=== PATIENT | female | born 1940 | race Caucasian/White ===

== ENCOUNTER 2016-06-28 23:22 | Inpatient (IN) | payer MEDICARE, OTHER ==
[2016-06-29 00:42] VITALS: BMI 22.9
--- NOTE | 2016-06-29 00:54 | PDOC ---
History of Present Illness - General History Source: Family <Kelvin Moran - Last Filed: 06/29/16 03:38> - General History Source: Patient Exam Limitations: No Limitations - History of Present Illness Initial Comments: 06/29/16 00:58 Patient is a 75 year old female with a significant past medical history of Parkinson's, depression and GERD who presents to the ED accompanied by family with right wound underneath her right fourth toe for last week and half. Patient was given Clindamycin 300 mg by her PMD she completed the course and is now reports loose stools. As per family, the wound persists, and now the foot is red and inflamed. PCP: Dr. Turner <Sari Kathleen - Last Filed: 06/29/16 05:05> - General Chief Complaint: Wound Infection Stated Complaint: INFECTION Time Seen by Provider: 06/29/16 00:49 Past History - Past Medical History Cardiac Disorders: No CVA: No CHF: No Dementia: Yes (PARKINSONS) Diabetes: No GI Disorders: No Disorders: No HTN: No Hypercholesterolemia: No Liver Disease: No Psychiatric Problems: Yes (DEPRESSION) Seizures: No Thyroid Disease: No - Surgical History Abdominal Surgery: No Appendectomy: No Cardiac Surgery: No Cholecystectomy: No Lung Surgery: No Neurologic Surgery: No Orthopedic Surgery: Yes (bilateral knee surgery) - Psycho/Social/Smoking Cessation Hx Anxiety: No Suicidal Ideation: No Smoking History: Never smoked Have you smoked in the past 12 months: No Hx Alcohol Use: No Drug/Substance Use Hx: No Substance Use Type: None Hx Substance Use Treatment: No <Kelvin Moran - Last Filed: 06/29/16 03:38> <Sari Kathleen - Last Filed: 06/29/16 05:05> - Past Medical History Allergies/Adverse Reactions: Allergies Allergy/AdvReac Type Severity Reaction Status Date / Time No Known Drug Allergies Allergy Verified 01/27/16 13:59 Home Medications: Ambulatory Orders Cholecalciferol (Vitamin D3) [Vitamin D3] 1,000 unit PO DAILY #0 tab.chew Pantoprazole Sodium [Protonix -] 40 mg PO DAILY #0 tablet.ec 12/10/13 Alendronate Sodium [Binosto] 70 mg PO WEEKLY 01/27/16 Beta-Carotene(A) W-C and E/Min [Ocuvite (Nf)] 1 tab PO DAILY 01/27/16 Calcium (Oyster Shell) [Os-Brody 500Mg -] 500 mg PO BID 01/27/16 Carbidopa/Levodopa *Cr* 25/100 [Sinemet *Cr* 25/100 -] 1 combo PO ASDIR Cyclosporine [Restasis] 1 each OU BID 01/27/16 Paroxetine HCl [Paxil] 30 mg PO DAILY 01/27/16 Quetiapine Fumarate "Xr" [Seroquel Xr -] 100 mg PO HS 01/27/16 Quetiapine Fumarate [Seroquel -] 25 mg PO BID 01/27/16 Ropinirole HCl [Requip Xl] 3 mg PO BID 01/27/16 Vitamin B Complex Vit C No.4 [Super B Complex] 150 mg PO DAILY 01/27/16 Vitamin E 400 unit PO DAILY 01/27/16 Review of Systems - Review of Systems Able to Perform ROS?: Yes Comments:: 06/29/16 00:59 CONSTITUTIONAL: Absent: fever, chills, diaphoresis, generalized weakness, malaise, loss of appetite HEENT: Absent: rhinorrhea, nasal congestion, throat pain, throat swelling, difficulty swallowing, mouth swelling, ear pain, eye pain, visual Changes CARDIOVASCULAR: Absent: chest pain, syncope, palpitations, irregular heart rate, lightheadedness , peripheral edema RESPIRATORY: Absent: cough, shortness of breath, dyspnea with exertion, orthopnea, wheezing, stridor, hemoptysis GASTROINTESTINAL: Absent: abdominal pain, abdominal distension, nausea, vomiting, diarrhea, constipation, melena, hematochezia GENITOURINARY: Absent: dysuria, frequency, urgency, hesitancy, hematuria, flank pain, genital pain MUSCULOSKELETAL: Absent: myalgia, arthralgia, joint swelling SKIN: Present: wound on the right foot. Absent: rash, itching, pallor HEMATOLOGIC/IMMUNOLOGIC: Absent: easy bleeding, easy bruising, lymphadenopathy, frequent infections ENDOCRINE: Absent: unexplained weight gain, unexplained weight loss, heat intolerance, cold intolerance NEUROLOGIC: Absent: headache, focal weakness or paresthesias, dizziness, unsteady gait, seizure, mental status changes, bladder or bowel incontinence PSYCHIATRIC: Absent: anxiety, depression, suicidal or homicidal ideation, hallucinations. <Sari Kathleen - Last Filed: 06/29/16 05:05> *Physical Exam - Vital Signs Last Vital Signs Temp Pulse Resp BP Pulse Ox 98.5 F 99 H 18 119/64 98 06/29/16 00:40 06/29/16 00:40 06/29/16 00:40 06/29/16 00:40 06/29/16 00:40 <Kelvin Moran - Last Filed: 06/29/16 03:38> - Vital Signs Last Vital Signs Temp Pulse Resp BP Pulse Ox 98.5 F 99 H 18 119/64 98 06/29/16 00:40 06/29/16 00:40 06/29/16 00:40 06/29/16 00:40 06/29/16 00:40 - Physical Exam Comments: 06/29/16 00:59 GENERAL: Well developed, well nourished. Awake and alert. In no acute distress. HEENT: Normocephalic, atraumatic. PERRLA, EOMI. No conjunctival pallor. Sclerae are non -icteric. Moist mucous membranes. Oropharynx is clear. NECK: Supple. Full ROM. No JVD. Carotid pulses 2+ and symmetric, without bruits. No thyromegaly. No lymphadenopathy. CARDIOVASCULAR: Regular rate and rhythm. No murmurs, rubs, or gallops. Distal pulses are 2+ and symmetric. PULMONARY: No evidence of respiratory distress. Lungs clear to auscultation bilaterally. No wheezing, rales or rhonchi. ABDOMINAL: Soft. Non-tender. Non-distended. No rebound or guarding. No organomegaly. Normoactive bowel sounds. MUSCULOSKELETAL Normal range of motion at all joints. No bony deformities or tenderness. No CVA tenderness. EXTREMITIES: +Tenderness erythema and mild edema of right foot on dorsal aspect, and she has open wound with yellow serous fluid under the 4th digit on the right foot. No cyanosis. No clubbing.No calf tenderness. SKIN: Warm and dry. Normal capillary refill. No rashes. No jaundice. NEUROLOGICAL: Alert, awake, appropriate. Cranial nerves 2-12 intact. No deficits to light touch and temperature in face, upper extremities and lower extremities. No motor deficits in the in face, upper extremities and lower extremities. Normoreflexic in the upper and lower extremities. Normal speech. Toes are downgoing bilaterally. Gait is normal without ataxia. PSYCHIATRIC: Cooperative. Good eye contact. Appropriate mood and affect. <Sari Kathleen - Last Filed: 06/29/16 05:05> Heart Score/ECG Review #1 06/29/16 05:04 ECG Impression: normal sinus rhythm Nonspecific ST abnormality Vent rate 94 bpm <Sari Kathleen - Last Filed: 06/29/16 05:05> ED Treatment Course - LABORATORY CBC & Chemistry Diagram: 06/29/16 01:07 06/29/16 01:07 <Kelvin Moran - Last Filed: 06/29/16 03:38> - LABORATORY CBC & Chemistry Diagram: 06/29/16 01:07 06/29/16 01:07 <Sari Kathleen - Last Filed: 06/29/16 05:05> Medical Decision Making - Medical Decision Making 06/29/16 03:38 Dr. Moran: The scribe's documentation has been prepared under my direction and personally reviewed by me in its entirery. I confirm that the note above accurately reflects all work, treatment, procedures, and medical decision making performed by me. Pt with a right foot wound infection despite po clindamycin that was given as out pt therapy. Will admit to [facility]. <Kelvin Moran - Last Filed: 06/29/16 03:38> *DC/Admit/Observation/Transfer - Discharge Dispostion Admit: Yes <Kelvin Moran - Last Filed: 06/29/16 03:38> - Attestations Scribe Attestion: 06/29/16 01:00 Documentation prepared by CHIDI Bird, acting as medical staffing coordinator for Kelvin Moran DO. <Sari Kathleen - Last Filed: 06/29/16 05:05> Diagnosis at time of Disposition: Right foot infection - Referrals
[2016-06-29 01:20] LABS: BASOPHIL 0.2 % (0-2.0); EOSINOPHIL 0.9 % (0-4.5); MCH 31.4 pg (25.7-33.7); MCHC 35.5 g/dl (32.0-36.0); MEAN CELL VOLUME 88.5 fl (80-96); MEAN PLT VOLUME 7.9 fl (7.5-11.1); NEUTROPHILS 79.5 % (42.8-82.8); PLATELET COUNT 147 K/MM3 (134-434); RDW 16.4 % (11.6-15.6); WHITE BLOOD COUNT 9.9 K/mm3 (4.0-10.0)
[2016-06-29 01:33] LABS: INR 1.24 (0.82-1.09); PROTHROMBIN TIME (PATIENT) 13.7 SEC (9.98-11.88)
[2016-06-29 01:40] LABS: ALBUMIN 3.5 g/dl (3.4-5.0); ANION GAP 9 (8-16); CALCIUM 8.3 mg/dL (8.5-10.1); CO2 28 mmol/L (21-32); CREATININE 0.5 mg/dL (0.55-1.02); GLUCOSE,RANDOM 109 mg/dL (74-106); MAGNESIUM 2.1 mg/dL (1.8-2.4); SGOT/AST 14 U/L (15-37); SGPT/ALT 6 U/L (12-78); TOT PROT 6.3 g/dl (6.4-8.2)
[2016-06-29 01:41] LABS: ALK PHOS 59 U/L (45-117)
[2016-06-29] MEDS ORDERED: POTASSIUM CHLORIDE TABS 20 MEQ TABLET.ER (FP) PO ONE ×2 (02:25→02:32)
[2016-06-29] MEDS ORDERED: LEVOFLOXACIN 500 MG IVPB 100 ML IVPB ONE ×2 (02:25→02:31)
--- NOTE | 2016-06-29 04:12 | HP ---
CHIEF COMPLAINT: Right foot pain PCP: Jairo HISTORY OF PRESENT ILLNESS: Patient is a 75 year old female with PMH of Parkinsons disease, depression & GERD who presents to ED with her 2 sons for right foot pain. Mother is a poor historian due to clinical condition, so majority of history is taken from son. Son states that mother complained for right foot pain a month ago and was sent to her PCP. A small ulcer was noted between her 4th and 5th right toes on the plantar aspect of her right foot. Patient was sent home on PO Clindamycin and instructed to f/u with wound care. Patient visited our wound care center on 2016 and wound was dressed with calcium alginate (silver). She was instructed to return to clinic in 1 week. Patient's pain has increased in last 2-3 days and the ulcer is now surrounded by erythema, with increased warmth and swelling of the kristin. Patient also complains of multiple daily loose stools for last 2-3 days as well. Denies fever, SOB, chest pain, abdominal pain, CLAROS, visual changes. 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) Social History: Smoking:NONE REPORTED Alcohol:NONE REPORTED Drugs: NONE REPORTED Family History: NONCONTRIBUTORY Allergies No Known Drug Allergies Allergy (Verified 01/27/16 13:59) HOME MEDICATIONS: Home Medications Medication Instructions Recorded Cholecalciferol (Vitamin D3) 1,000 unit PO DAILY #0 tab.chew 12/10/13 [Vitamin D3] Pantoprazole Sodium [Protonix -] 40 mg PO DAILY #0 tablet.ec 12/10/13 Alendronate Sodium [Binosto] 70 mg PO WEEKLY 01/27/16 Beta-Carotene(A) W-C and E/Min 1 tab PO DAILY 01/27/16 [Ocuvite (Nf)] Calcium (Oyster Shell) [Os-Brody 500 mg PO BID 01/27/16 500Mg -] Carbidopa/Levodopa *Cr* 25/100 1 combo PO ASDIR 01/27/16 [Sinemet *Cr* 25/100 -] Cyclosporine [Restasis] 1 each OU BID 01/27/16 Paroxetine HCl [Paxil] 30 mg PO DAILY 01/27/16 Quetiapine Fumarate "Xr" [Seroquel 100 mg PO HS 01/27/16 Xr -] Quetiapine Fumarate [Seroquel -] 25 mg PO BID 01/27/16 Ropinirole HCl [Requip Xl] 3 mg PO BID 01/27/16 Vitamin B Complex Vit C No.4 150 mg PO DAILY 01/27/16 [Super B Complex] Vitamin E 400 unit PO DAILY 01/27/16 REVIEW OF SYSTEMS CONSTITUTIONAL: Absent: fever, chills, diaphoresis, generalized weakness, malaise, loss of appetite, weight change HEENT: Absent: rhinorrhea, nasal congestion, throat pain, throat swelling, difficulty swallowing, mouth swelling, ear pain, eye pain, visual changes CARDIOVASCULAR: Absent: chest pain, syncope, palpitations, irregular heart rate, lightheadedness , peripheral edema RESPIRATORY: Absent: cough, shortness of breath, dyspnea with exertion, orthopnea, wheezing, stridor, hemoptysis GASTROINTESTINAL: (+)diarrhea, Absent: abdominal pain, abdominal distension, nausea, vomiting, constipation, melena, hematochezia GENITOURINARY: Absent: dysuria, frequency, urgency, hesitancy, hematuria, flank pain, genital pain MUSCULOSKELETAL: Absent: myalgia, arthralgia, joint swelling, back pain, neck pain SKIN: (+)right foot erythematous & tender surround plantar aspect near 4th toe HEMATOLOGIC/IMMUNOLOGIC: Absent: easy bleeding, easy bruising, lymphadenopathy, frequent infections ENDOCRINE: Absent: unexplained weight gain, unexplained weight loss, heat intolerance, cold intolerance NEUROLOGIC: Absent: headache, focal weakness or paresthesias, dizziness, unsteady gait, seizure, mental status changes, bladder or bowel incontinence PSYCHIATRIC: Absent: anxiety, depression, suicidal or homicidal ideation, hallucinations. PHYSICAL EXAMINATION Vital Signs - 24 hr 06/29/16 00:40 Temperature 98.5 F Pulse Rate 99 H Respiratory 18 Rate Blood Pressure 119/64 O2 Sat by Pulse 98 Oximetry (%) GENERAL: Awake, alert, and fully oriented, in no acute distress. HEENT: Atraumatic, EOMI, PERRLA, No lymphadenopathy noted, moist membranes LUNGS: Breath sounds equal, clear to auscultation bilaterally. No wheezes, and no crackles. No accessory muscle use. HEART: Regular rate and rhythm, normal S1 and S2 without murmur, rub or gallop. ABDOMEN: Soft, nontender, not distended, normoactive bowel sounds, no guarding, no rebound, no masses. No hepatomegaly or splenomegaly. MUSCULOSKELETAL: Normal range of motion at all joints. No bony deformities or tenderness. No CVA tenderness. UPPER EXTREMITIES: 2+ pulses, warm, well-perfused. No cyanosis. No clubbing. No peripheral edema. LOWER EXTREMITIES: 2+ pulses, warm, well-perfused. No calf tenderness. No peripheral edema. NEUROLOGICAL: Cranial nerves II-XII intact. Normal speech. Normal gait. PSYCHIATRIC: Cooperative. Good eye contact. Appropriate mood and affect. SKIN: Ulcer in between 4th & 5th toe on right foot with yellow-clear serous drainage; area surrounding ulcer is especially erythematous, warm & tender ( most notably on plantar aspect of foot) Laboratory Results - last 24 hr 06/29/16 06/29/16 06/29/16 01:07 01:07 01:07 WBC 9.9 D RBC 3.66 Hgb 11.5 Hct 32.4 MCV 88.5 MCHC 35.5 RDW 16.4 H D Plt Count 147 MPV 7.9 Neutrophils % 79.5 Lymphocytes % 12.4 D Monocytes % 7.0 Eosinophils % 0.9 Basophils % 0.2 INR 1.24 H Sodium 142 Potassium 3.1 L Chloride 105 Carbon Dioxide 28 Anion Gap 9 BUN 19 H Creatinine 0.5 L D Creat Clearance w eGFR > 60 Random Glucose 109 H Lactic Acid Calcium 8.3 L Magnesium 2.1 Total Bilirubin 1.0 D AST 14 L D ALT 6 L D Alkaline Phosphatase 59 Total Protein 6.3 L Albumin 3.5 06/29/16 01:09 WBC RBC Hgb Hct MCV MCHC RDW Plt Count MPV Neutrophils % Lymphocytes % Monocytes % Eosinophils % Basophils % INR Sodium Potassium Chloride Carbon Dioxide Anion Gap BUN Creatinine Creat Clearance w eGFR Random Glucose Lactic Acid 0.788 Calcium Magnesium Total Bilirubin AST ALT Alkaline Phosphatase Total Protein Albumin ASSESSMENT/PLAN: 75 year old female with PMH of Parkinsons disease, depression & GERD who presents to ED with right foot ulcer & cellulitis. #Right foot Ulcer w/ superimposed acute cellulitis -Penny Victoria started -Wound care consulted -ID consulted -IVF NS @50 cc/hr -Tylenol pain management -blood cultures pending -wound culture pending -right foot XRAY ordered #Diarrhea -need to r/o C. Diff due to clindamycin use -stool cultures, ova/parasites, c. diff sent #Parkinsons disease -need to confirm home meds with pharmacy & restart her home meds in morning #Hypokalemia -given 40mEq K-Dur in ED -continue to trend Prophylaxis/FEN -Heparin started -Protonix -Regular diet, Potassium given in ED (Will monitor), IVF NS@50cc/hr Visit type - Emergency Visit Emergency Visit: Yes ED Registration Date: 06/29/16 Care time: The patient presented to the Emergency Department on the above date and was hospitalized for further evaluation of their emergent condition. - New Patient This patient is new to me today: Yes Date on this admission: 06/29/16 - Critical Care Critical Care patient: No
[2016-06-29] MEDS ORDERED: SODIUM CHLORIDE 1,000 ML IV SCH (05:30)
[2016-06-29] MEDS ORDERED: VANCOMYCIN 1 GRAM (PRE-DOCKED) 1,000 MG/250 ML BAG IVPB ONE (05:45)
[2016-06-29] MEDS ORDERED: PIPERACILLIN/TAZOB 3.375 GM/50 ML PRE-DOCKED IVPB ONE (05:45)
--- NOTE | 2016-06-29 05:52 | PN ---
Teaching Attending Note Name of Resident: Alexandre Osman ATTENDING PHYSICIAN STATEMENT I saw and evaluated the patient. I reviewed the resident's note and discussed the case with the resident. I agree with the resident's findings and plan as documented. SUBJECTIVE: 75 year old female that was brought for evaluation of RLE redness and persistent wound despite treatment with oral antibiotics. She was seen and evaluated by her rehabilitation specialist approximately 2 weeks ago due to wound in right 4th intertrigial space, was prescribed clindamycin orally . She completed the course however has worsening erythema and pain of the right foot . She reports recent history of diarrhea. PMH Parkinsons HTN ALL none Current Medications Acetaminophen (Tylenol -) 650 mg PO Q4H PRN PRN Reason: FEVER OR PAIN Heparin Sodium (Porcine) (Heparin -) 5,000 unit SQ Q8H-IV KOREY Sodium Chloride (Normal Saline -) 1,000 mls @ 50 mls/hr IV ASDIR KOREY Stop: 06/30/16 01:29 Pantoprazole Sodium (Protonix -) 40 mg PO DAILY KOREY Piperacillin Sod/Tazobactam Sod (Zosyn 3.375gm Ivpb (Pre-Docked)) 3.375 gm IVPB Q8H-IV KOREY PRN Reason: Protocol Vancomycin HCl (Vancomycin (Pre-Docked)) 1,000 mg IVPB DAILY KOREY PRN Reason: Protocol OBJECTIVE: Vital Signs Temperature 98.5 F 06/29/16 00:40 Pulse Rate 99 H 06/29/16 00:40 Respiratory Rate 18 06/29/16 00:40 Blood Pressure 119/64 06/29/16 00:40 O2 Sat by Pulse Oximetry (%) 98 06/29/16 00:40 HEENT PERRLA , atraumatic , OP clear CVS S1 S2 + , No MRG RRR RS CTA B/L ABD soft NT EXT 2nd right toe amputation , 4th intertrigial space wound , erythema of the dorsum of the foot, severe tenderness on palpation. Laboratory 06/29/16 06/29/16 06/29/16 01:07 01:07 01:07 WBC 9.9 K/mm3 D K/mm3 (4.0-10.0) RBC 3.66 M/mm3 M/mm3 (3.60-5.2) Hgb 11.5 GM/dL GM/dL (10.7-15.3) Hct 32.4 % % (32.4-45.2) MCV 88.5 fl fl (80-96) MCHC 35.5 g/dl g/dl (32.0-36.0) RDW 16.4 % H D % (11.6-15.6) Plt Count 147 K/MM3 K/MM3 (134-434) MPV 7.9 fl fl (7.5-11.1) Neutrophils % 79.5 % % (42.8-82.8) Lymphocytes % 12.4 % D % (8-40) Monocytes % 7.0 % % (3.8-10.2) Eosinophils % 0.9 % % (0-4.5) Basophils % 0.2 % % (0-2.0) INR 1.24 H (0.82-1.09) Sodium 142 mmol/L mmol/L (136-145) Potassium 3.1 mmol/L L mmol/L (3.5-5.1) Chloride 105 mmol/L mmol/L (98-107) Carbon Dioxide 28 mmol/L mmol/L (21-32) Anion Gap 9 (8-16) BUN 19 mg/dL H mg/dL (7-18) Creatinine 0.5 mg/dL L D mg/dL (0.55-1.02) Creat Clearance w eGFR > 60 (>60) Random Glucose 109 mg/dL H mg/dL (74-106) Lactic Acid Calcium 8.3 mg/dL L mg/dL (8.5-10.1) Magnesium 2.1 mg/dL mg/dL (1.8-2.4) Total Bilirubin 1.0 mg/dL D mg/dL (0.2-1.0) AST 14 U/L L D U/L (15-37) ALT 6 U/L L D U/L (12-78) Alkaline Phosphatase 59 U/L U/L (45-117) Total Protein 6.3 g/dl L g/dl (6.4-8.2) Albumin 3.5 g/dl g/dl (3.4-5.0) 06/29/16 01:09 WBC RBC Hgb Hct MCV MCHC RDW Plt Count MPV Neutrophils % Lymphocytes % Monocytes % Eosinophils % Basophils % INR Sodium Potassium Chloride Carbon Dioxide Anion Gap BUN Creatinine Creat Clearance w eGFR Random Glucose Lactic Acid 0.788 mmol/L mmol/L (0.4-2.0) Calcium Magnesium Total Bilirubin AST ALT Alkaline Phosphatase Total Protein Albumin ASSESSMENT AND PLAN: 75 year old female with Right foot cellulitis refractory to treatment with outpatient wound care and oral antibiotics. Laboratory workup is abnormal for hypokalemia . - IVF - IV Zosyn and stat Vanco - Vascular surgery/wound care evaluation - supplement K - ID evaluation - XR of the foot is pending - c/w the rest of the home meds - DVT pph with heparin SC Admit as an inpatient , due to failure of oral antibiotics ,expected length of treatment with IV antibiotics is greater then 2 days .
[2016-06-29 08:44] LABS: MCH 31.4 pg (25.7-33.7); MCHC 35.4 g/dl (32.0-36.0); MEAN CELL VOLUME 88.6 fl (80-96); MEAN PLT VOLUME 7.9 fl (7.5-11.1); PLATELET COUNT 148 K/MM3 (134-434); RDW 16.5 % (11.6-15.6); WHITE BLOOD COUNT 7.9 K/mm3 (4.0-10.0)
[2016-06-29 09:00] LABS: ALBUMIN 3.3 g/dl (3.4-5.0); ANION GAP 10 (8-16); CO2 26 mmol/L (21-32); GLUCOSE,RANDOM 133 mg/dL (74-106); MAGNESIUM 2.2 mg/dL (1.8-2.4)
[2016-06-29 09:04] LABS: ALK PHOS 53 U/L (45-117); BILIRUBIN,TOTAL 1.1 mg/dL (0.2-1.0); CREATININE 0.5 mg/dL (0.55-1.02); PHOSPHOROUS 2.8 mg/dL (2.5-4.9); SGOT/AST 14 U/L (15-37); SGPT/ALT 20 U/L (12-78); TOT PROT 6.2 g/dl (6.4-8.2)
[2016-06-29] MEDS ORDERED: AMPICILLIN NA/SULBACTAM NA 1.5 GM in SODIUM CHLORIDE 100 ML IVPB STA (09:45)
[2016-06-29 09:46] LABS: URINE APPEARANCE CLEAR; URINE BILIRUBIN NEGATIVE (NEGATIVE); URINE BLOOD NEGATIVE (NEGATIVE); URINE COLOR STRAW; URINE GLUCOSE (UA) NEGATIVE (NEGATIVE); URINE KETONE NEGATIVE (NEGATIVE); URINE NITRITE NEGATIVE (NEGATIVE); URINE PROTEIN NEGATIVE (NEGATIVE); URINE UROBILINOGEN NEGATIVE E.U./dl (0.2-1.0)
[2016-06-29 09:56] LABS: URINE LEUK ESTERASE 2+ (NEGATIVE)
[2016-06-29 09:59] LABS: URINE MUCUS RARE; URINE RBC 2 /hpf (0-3); URINE WBC 56 /hpf (3-5)
[2016-06-29] MEDS ORDERED: VANCOMYCIN 1 GRAM (PRE-DOCKED) 1,000 MG/250 ML BAG IVPB SCH (10:00)
[2016-06-29] MEDS ORDERED: PIPERACILLIN/TAZOB 3.375 GM/50 ML PRE-DOCKED IVPB SCH (10:00)
[2016-06-29] MEDS: PANTOPRAZOLE 40 MG TABLET (FP) PO SCH (10:42)
[2016-06-29] MEDS: HEPARIN NA (PORCINE) 5,000 UNITS/ML 1ML VIAL SQ SCH ×2 (10:43→17:21)
[2016-06-29] MEDS ORDERED: CARBIDOPA/LEVODOPA 25/100 TABLET (FP) ONE (10:45)
--- NOTE | 2016-06-29 13:22 | EKG ---
Test Reason : Blood Pressure : / mmHG Vent. Rate : 094 BPM Atrial Rate : 094 BPM P-R Int : 164 ms QRS Dur : 076 ms QT Int : 352 ms P-R-T Axes : 036 027 057 degrees QTc Int : 440 ms NORMAL SINUS RHYTHM NONSPECIFIC ST ABNORMALITY ABNORMAL ECG WHEN COMPARED WITH ECG OF 27-JAN-2016 15:43, NO SIGNIFICANT CHANGE WAS FOUND BASELINE ARTIFACT Confirmed by ELIE HOLLINS, SANDRA ([id number]) on 06/29/2016 1:22:04 PM Referred By: Confirmed By:SANDRA DELGADILLO MD
[2016-06-29] MEDS ORDERED: PARoxetine HCL 10 MG TABLET (FP) ONE (14:35)
[2016-06-29] MEDS: PARoxetine HCL 30 MG TABLET PO SCH (14:54)
--- NOTE | 2016-06-29 14:55 | PN ---
Teaching Attending Note Name of Resident: Charleen Pena ATTENDING PHYSICIAN STATEMENT I saw and evaluated the patient. I reviewed the resident's note and discussed the case with the resident. I agree with the resident's findings and plan as documented. SUBJECTIVE: reports pain in R foot . has no fever or chills. no CP or SOB . recently finished a course of clindamycin and developed diarrhea. had a watery BM this am . OBJECTIVE: NAD , awake , alert , not oriented. CV: RRR. Lungs were not examined as she was on bed bojorquez . Abd :soft, ND, TTP in LLQ , with no rebound tnderness or guarding . Ext : R foot with erythema , and edema on dorsum and anterior part of sole . TTP . deformed toes. ulcer with purulent drainage between 3rd and 4th toes. no extra drainage was expressed when squeezed , no fluctuance no erythema or edema over Legs . DP 2+ b/l . ASSESSMENT AND PLAN: 75 y/o lady with h/o GERD, dementia , PArkinson's , who presented with draining ulcer on R foot 1- Infected ulcer with associated cellulitis : no gas formation on xray . no fever or leukocytosis - Abx treatment - wound care consult by Dr. Balladr - might need podiatry - cx sent , will follow 2- Diarrhea: could be due to Abx she recently received . but C diff needs to be r/o - follow stool studies . if positive for c diff , will treat - monitor abd exam . minimal tenderness in LLQ - IVF 3- h/o Parkinson's : will confirm meds but in mean time will start her on sinemet dose as per son list 4- H/O depression : resume SSRI 5- DVT px
[2016-06-29] MEDS ORDERED: AMPICILLIN NA/SULBACTAM NA 1.5 GM in SODIUM CHLORIDE 100 ML IVPB SCH (15:00)
--- NOTE | 2016-06-29 15:21 | PN ---
Physical Exam: SUBJECTIVE: Patient seen and examined Patient resting in bed NAD. Afebrile and hemodynamically stable. No acute events. Complains of pain in her R foot. Denies f/c, chest pain, sob, diaphoresis, palpitations, dizziness, abd pain, dysuria. Reports having diarrhea. OBJECTIVE: GENERAL: Awake, alert, and fully oriented, in no acute distress. HEENT: EOMI, PERRLA, moist membranes LUNGS: Breath sounds equal, clear to auscultation bilaterally. HEART: Regular rate and rhythm, normal S1 and S2 ABDOMEN: Soft, nontender, not distended, normoactive bowel sounds MUSCULOSKELETAL: No CVA tenderness. UPPER EXTREMITIES: 2+ pulses, warm, well-perfused. No cyanosis. No clubbing. No peripheral edema. LOWER EXTREMITIES: 2+ pulses, warm, well-perfused. No calf tenderness. No peripheral edema. R foor erythematous, purulence between 3rd adn 4th toes. possibly fluctuant area ventrally. NEUROLOGICAL: Cranial nerves II-XII grossly intact. Normal speech. rigid extremities PSYCHIATRIC: Cooperative. Good eye contact. Appropriate mood and affect. Vital Signs Period Temp Pulse Resp BP Sys/Mcginnis Pulse Ox Last 24 Hr 99.3 F-99.4 F 91-109 - 118-131/56-61 Laboratory Results - last 24 hr 06/29/16 06/29/16 06/29/16 08:00 08:00 09:30 WBC 7.9 RBC 3.69 Hgb 11.6 Hct 32.7 MCV 88.6 MCHC 35.4 RDW 16.5 H Plt Count 148 MPV 7.9 Sodium 145 Potassium 3.6 Chloride 109 H Carbon Dioxide 26 Anion Gap 10 BUN 12 D Creatinine 0.5 L Creat Clearance w eGFR > 60 Random Glucose 133 H D Calcium 8.0 L Phosphorus 2.8 Magnesium 2.2 Total Bilirubin 1.1 H AST 14 L ALT 20 D Alkaline Phosphatase 53 Total Protein 6.2 L Albumin 3.3 L Urine Color Straw Urine Appearance Clear Urine pH 5.0 Ur Specific [place] 1.010 Urine Protein Negative Urine Glucose (UA) Negative Urine Ketones Negative Urine Blood Negative Urine Nitrite Negative Urine Bilirubin Negative Urine Urobilinogen Negative Ur Leukocyte Esterase 2+ H Urine RBC 2 Urine WBC 56 Ur Epithelial Cells Rare Urine Mucus Rare Active Medications Generic Name Dose Route Start Last Admin Trade Name Freq PRN Reason Stop Dose Admin Acetaminophen 650 mg 06/29/16 05:28 Tylenol - PO Q4H PRN FEVER OR PAIN Carbidopa/Levodopa 1 combo 06/29/16 14:00 06/29/16 14:54 Sinemet *Cr* 25/100 - PO 1 combo 5XD [facility] Administration Heparin Sodium (Porcine) 5,000 unit 06/29/16 10:00 06/29/16 10:43 Heparin - SQ 5,000 unit Q8H-IV K[facility]Y Administration Sodium Chloride 1,000 mls @ 50 mls/hr 06/29/16 05:30 06/29/16 05:53 Normal Saline - IV 06/30/16 01:29 50 mls/hr ASDIR KOREY Administration Influenza Virus Vaccine 45 mcg 06/29/16 14:27 Fluvirin IM 06/29/16 14:28 .ONCE ONE Ketoconazole 1 applic 06/29/16 13:00 Nizoral 2% Cream - TP DAILY K[facility]Y Pantoprazole Sodium 40 mg 06/29/16 10:00 06/29/16 10:42 Protonix - PO 40 mg DAILY K[facility] Administration Paroxetine HCl 30 mg 06/29/16 13:00 06/29/16 14:54 Paxil - PO 30 mg DAILY [facility] Administration Piperacillin Sod/Tazobactam Sod 3.375 gm 06/29/16 18:00 Zosyn 3.375gm Ivpb (Pre-Docked) IVPB Q8H-IV K[facility] Pneumococcal 13-Valent Conj Vacc 0.5 ml 06/29/16 14:27 Prevnar 13 Syringe - IM 06/29/16 14:28 .ONCE ONE Quetiapine Fumarate 50 mg 06/29/16 22:00 Seroquel Xr - PO HS K[facility]Y Silver Sulfadiazine 1 applic 06/29/16 13:30 Silvadene - TP BID K[facility]Y ASSESSMENT/PLAN: This is a 75 year old female with PMH of Parkinsons disease, depression & GERD who presents to ED with right foot ulcer & cellulitis, failed PO abx. Right foot Ulcer with superimposed acute cellulitis and possible abscess -between 3rd and 4th metatarsals -Vanc, Zosyn, levaquin in ed -will switch to unasyn, vanc. -Wound care consulted, will likely need I and D -ID consulted -IVF NS @50 -Tylenol pain management -blood cultures pending -wound culture pending -right foot XRAY no apparent osteo Diarrhea -likely side effect of recent clindamycin -r/o C. Diff, sent toxin, stool cultures, ova/parasites Parkinsons disease -carbidopa/levodopa Depression -seroquel -paxil FEN -NS@50 -repleted K -Hep, PPI -Regular diet Dispo: admit to med [facility] Visit type - Emergency Visit Emergency Visit: Yes ED Registration Date: 06/29/16 Care time: The patient presented to the Emergency Department on the above date and was hospitalized for further evaluation of their emergent condition. - New Patient This patient is new to me today: Yes Date on this admission: 06/29/16 - Critical Care Critical Care patient: No - Discharge Referral Referred to [facility] Med [facility] No
--- NOTE | 2016-06-29 15:41 | MSN ---
Progress Note (short form) - Note Progress Note: 75 yo female here for rt toe and foot cellulitis. PMH of Parkinson's disease, depression, & GERD presents to ER w/ her 2 sons for rt foot pain. Son states that ulcer has been present for 1 month; pt seen by PCP about 1 week ago and started on clidamycin; however it seems like ulcer and foot pain worsened. Reports that ulcer is located between 3 & 4th toes and is painful when she walks ; foot also reported as swollen and red. Also reports diarrhea X 3 days; no blood reported. Denies nausea, fevers, diarrhea. PSHx sig for Rt second toe amputation due to deformity. Allergies Allergy/AdvReac Type Severity Reaction Status Date / Time No Known Drug Allergies Allergy Verified 06/29/16 06:11 Last Vital Signs Temp Pulse Resp BP Pulse Ox 99.3 F 109 H 17 131/61 98 06/29/16 13:55 06/29/16 13:55 06/29/16 14:15 06/29/16 13:55 06/29/16 00:40 Laboratory Results - last 24 hr 06/29/16 06/29/16 06/29/16 01:07 01:07 01:07 WBC 9.9 D RBC 3.66 Hgb 11.5 Hct 32.4 MCV 88.5 MCHC 35.5 RDW 16.4 H D Plt Count 147 MPV 7.9 Neutrophils % 79.5 Lymphocytes % 12.4 D Monocytes % 7.0 Eosinophils % 0.9 Basophils % 0.2 INR 1.24 H Sodium 142 Potassium 3.1 L Chloride 105 Carbon Dioxide 28 Anion Gap 9 BUN 19 H Creatinine 0.5 L D Creat Clearance w eGFR > 60 Random Glucose 109 H Lactic Acid Calcium 8.3 L Phosphorus Magnesium 2.1 Total Bilirubin 1.0 D AST 14 L D ALT 6 L D Alkaline Phosphatase 59 Total Protein 6.3 L Albumin 3.5 Urine Color Urine Appearance Urine pH Ur Specific [place] Urine Protein Urine Glucose (UA) Urine Ketones Urine Blood Urine Nitrite Urine Bilirubin Urine Urobilinogen Ur Leukocyte Esterase Urine RBC Urine WBC Ur Epithelial Cells Urine Mucus 06/29/16 06/29/16 06/29/16 01:09 08:00 08:00 WBC 7.9 RBC 3.69 Hgb 11.6 Hct 32.7 MCV 88.6 MCHC 35.4 RDW 16.5 H Plt Count 148 MPV 7.9 Neutrophils % Lymphocytes % Monocytes % Eosinophils % Basophils % INR Sodium 145 Potassium 3.6 Chloride 109 H Carbon Dioxide 26 Anion Gap 10 BUN 12 D Creatinine 0.5 L Creat Clearance w eGFR > 60 Random Glucose 133 H D Lactic Acid 0.788 Calcium 8.0 L Phosphorus 2.8 Magnesium 2.2 Total Bilirubin 1.1 H AST 14 L ALT 20 D Alkaline Phosphatase 53 Total Protein 6.2 L Albumin 3.3 L Urine Color Urine Appearance Urine pH Ur Specific [place] Urine Protein Urine Glucose (UA) Urine Ketones Urine Blood Urine Nitrite Urine Bilirubin Urine Urobilinogen Ur Leukocyte Esterase Urine RBC Urine WBC Ur Epithelial Cells Urine Mucus 06/29/16 09:30 WBC RBC Hgb Hct MCV MCHC RDW Plt Count MPV Neutrophils % Lymphocytes % Monocytes % Eosinophils % Basophils % INR Sodium Potassium Chloride Carbon Dioxide Anion Gap BUN Creatinine Creat Clearance w eGFR Random Glucose Lactic Acid Calcium Phosphorus Magnesium Total Bilirubin AST ALT Alkaline Phosphatase Total Protein Albumin Urine Color Straw Urine Appearance Clear Urine pH 5.0 Ur Specific [place] 1.010 Urine Protein Negative Urine Glucose (UA) Negative Urine Ketones Negative Urine Blood Negative Urine Nitrite Negative Urine Bilirubin Negative Urine Urobilinogen Negative Ur Leukocyte Esterase 2+ H Urine RBC 2 Urine WBC 56 Ur Epithelial Cells Rare Urine Mucus Rare Home Medications Medication Instructions Recorded Cholecalciferol (Vitamin D3) 1,000 unit PO DAILY #0 tab.chew 12/10/13 [Vitamin D3] Carbidopa/Levodopa *Cr* 25/100 1 combo PO QID 01/27/16 [Sinemet *Cr* 25/100 -] Cyclosporine [Restasis] 1 each OU BID 01/27/16 Paroxetine HCl [Paxil] 30 mg PO DAILY 01/27/16 Vitamin B Complex Vit C No.4 150 mg PO DAILY 01/27/16 [Super B Complex] Vitamin E 400 unit PO DAILY 01/27/16 Quetiapine Fumarate [Quetiapine 25 mg PO HS 06/29/16 Fumarate ER] Current Medications Generic Name Dose Route Start Last Admin Trade Name Freq PRN Reason Stop Dose Admin Acetaminophen 650 mg 06/29/16 05:28 Tylenol - PO Q4H PRN FEVER OR PAIN Carbidopa/Levodopa 1 combo 06/29/16 14:00 06/29/16 14:54 Sinemet *Cr* 25/100 - PO 1 combo 5XD [facility] Administration Heparin Sodium (Porcine) 5,000 unit 06/29/16 10:00 06/29/16 10:43 Heparin - SQ 5,000 unit Q8H-IV [facility] Administration Sodium Chloride 1,000 mls @ 50 mls/hr 06/29/16 05:30 06/29/16 05:53 Normal Saline - IV 06/30/16 01:29 50 mls/hr ASDIR K[facility]Y Administration Influenza Virus Vaccine 45 mcg 06/29/16 14:27 Fluvirin IM 06/29/16 14:28 .ONCE ONE Ketoconazole 1 applic 06/29/16 13:00 Nizoral 2% Cream - TP DAILY [facility] Pantoprazole Sodium 40 mg 06/29/16 10:00 06/29/16 10:42 Protonix - PO 40 mg DAILY [facility]Y Administration Paroxetine HCl 30 mg 06/29/16 13:00 06/29/16 14:54 Paxil - PO 30 mg DAILY [facility] Administration Piperacillin Sod/Tazobactam Sod 3.375 gm 06/29/16 18:00 Zosyn 3.375gm Ivpb (Pre-Docked) IVPB Q8H-IV COUNT INCLUDES [facility] Pneumococcal 13-Valent Conj Vacc 0.5 ml 06/29/16 14:27 Prevnar 13 Syringe - IM 06/29/16 14:28 .ONCE ONE Quetiapine Fumarate 50 mg 06/29/16 22:00 Seroquel Xr - PO HS KOREY Silver Sulfadiazine 1 applic 06/29/16 13:30 Silvadene - TP BID K[place]Y General: alert and oriented to person and place; communicates in urdu Head: Normocephalic Neck: supple, no JVD, no carotid bruits Heart: NOrmal S1 & S2 Lungs: CTA Abdomen: slight TTP LLQ; hyperactive bowel sounds MSK: LT Foot hammer toe deformity involving all toes RT Foot hammer toe deformity invovling all toes; 2nd toe amputation; TTP dorsal Rt foot; no TTP plantar surface; dorsal cellulitis, warm to touch, area of fluctuance between 3rd and 4th toes. Not currently draining. Assessment: Right foot Ulcer w/ superimposed acute cellulitis -Vanc, Zosyn started -Wound care consulted -ID consulted -Tylenol pain management -blood cultures pending -wound culture pending #Diarrhea -need to r/o C. Diff due to clindamycin use -stool cultures, ova/parasites, c. diff sent #Parkinsons disease started home medications #Hypokalemia -given 40mEq K-Dur in ED -continue to trend Prophylaxis/FEN -Heparin started -Protonix -Regular diet, Potassium given in ED (Will monitor), IVF NS@50cc/hr
[2016-06-29] MEDS ORDERED: INFLUENZA VACCINE 45 MCG/0.5 ML (MDV 16-17) IM ONE (16:30)
[2016-06-29] MEDS ORDERED: PNEUMOC 13-VAL CONJ-DIP CRM/PF 0.5 ML DISP.SYRIN IM ONE (16:30)
[2016-06-29] MEDS: SILVER SULFADIAZINE 1% TOP CREAM 400 GM JAR TP SCH ×2 (16:52→22:35)
[2016-06-29] MEDS: KETOCONAZOLE 2% CREAM - 60GM TUBE TP SCH (16:53)
[2016-06-29] MEDS: PIPERACILLIN/TAZOB 3.375 GM/50 ML PRE-DOCKED IVPB SCH (17:21)
--- NOTE | 2016-06-29 17:48 | CONSULT ---
Consult Consult Specialty:: infectious diseases Reason for Consultation:: cellulitis of the foot - History of Present Illness Chief Complaint: pain and swelling at the foot sit with ulcer History of Present Illness: 75 year old female with PMH of Parkinsons disease, depression & GERD who is admitted for right foot pain. HGistory obtained from the charts and also from the family ,her son present with her According to the son mother started complaining of right foot pain one month went to her PCP. 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 - Alcohol/Substance Use Hx Alcohol Use: No - Smoking History Smoking history: Never smoked Have you smoked in the past 12 months: No Home Medications - Allergies Allergies/Adverse Reactions: Allergies Allergy/AdvReac Type Severity Reaction Status Date / Time No Known Drug Allergies Allergy Verified 06/29/16 06:11 - Home Medications Home Medications: Ambulatory Orders Cholecalciferol (Vitamin D3) [Vitamin D3] 1,000 unit PO DAILY #0 tab.chew Carbidopa/Levodopa *Cr* 25/100 [Sinemet *Cr* 25/100 -] 1 combo PO QID 01/27/16 Cyclosporine [Restasis] 1 each OU BID 01/27/16 Paroxetine HCl [Paxil] 30 mg PO DAILY 01/27/16 Vitamin B Complex Vit C No.4 [Super B Complex] 150 mg PO DAILY 01/27/16 Vitamin E 400 unit PO DAILY 01/27/16 Quetiapine Fumarate [Quetiapine Fumarate ER] 25 mg PO HS 06/29/16 Review of Systems - Review of Systems Constitutional: reports: No Symptoms Eyes: reports: No Symptoms HENT: reports: No Symptoms Neck: reports: No Symptoms Cardiovascular: reports: No Symptoms Respiratory: reports: No Symptoms Gastrointestinal: reports: No Symptoms Genitourinary: reports: No Symptoms Musculoskeletal: reports: Joint Pain, Joint Swelling, Other Integumentary: reports: Erythema, Lesions, Other Neurological: reports: No Symptoms Endocrine: reports: No Symptoms Hematology/Lymphatic: reports: No Symptoms Psychiatric: reports: No Symptoms Physical Exam Vital Signs: Vital Signs Temperature 99.3 F 06/29/16 13:55 Pulse Rate 109 H 06/29/16 13:55 Respiratory Rate 17 06/29/16 14:15 Blood Pressure 131/61 06/29/16 13:55 O2 Sat by Pulse Oximetry (%) 98 06/29/16 00:40 Constitutional: Yes: Calm, Mild Distress, Thin Eyes: Yes: Conjunctiva Clear HENT: Yes: Atraumatic Neck: Yes: Supple Cardiovascular: Yes: Regular Rate and Rhythm Respiratory: Yes: Regular, CTA Bilaterally Gastrointestinal: Yes: Normal Bowel Sounds, Soft Musculoskeletal: Yes: Muscle Pain, Other Extremities: Yes: Amputation (2nd toe on the right) Integumentary: Yes: Other (Ulcer in between 4th & 5th toe on right foot with yellow-clear serous drainage; area surrounding ulcer is especially erythematous , warm & tender erythema extending on the plantar aspect of the wound) Wound/Incision: Yes: Clean/Dry, Open to air Neurological: Yes: Alert, Oriented Psychiatric: Yes: Alert, Oriented Labs: CBC, BMP 06/29/16 08:00 06/29/16 08:00 Imaging - Results Chest X-ray: Report Reviewed, Image Reviewed X-ray: Report Reviewed, Image Reviewed Assessment/Plan 75 year old female with PMH of Parkinsons disease, depression & GERD who presents to ED with right foot ulcer & cellulitis. also of note ids that patient has hammer toes and also i ahve a suspicion she also ahs arthritis patent has started to feel better I am worried there might be deep seated infection since it has not healed after so much time cellulitis of the rt foot hammer toes plan get an mri of the foot, started on abx will see what is the response rest as per primary
[2016-06-29] MEDS: ACETAMINOPHEN 325 MG TABLET (FP) PO PRN (20:33)
[2016-06-30] MEDS: HEPARIN NA (PORCINE) 5,000 UNITS/ML 1ML VIAL SQ SCH ×3 (03:44→20:20)
[2016-06-30] MEDS: PIPERACILLIN/TAZOB 3.375 GM/50 ML PRE-DOCKED IVPB SCH ×3 (03:45→20:20)
[2016-06-30 08:41] LABS: MCH 31.1 pg (25.7-33.7); MCHC 35.1 g/dl (32.0-36.0); MEAN CELL VOLUME 88.5 fl (80-96); MEAN PLT VOLUME 7.9 fl (7.5-11.1); PLATELET COUNT 129 K/MM3 (134-434); RDW 16.5 % (11.6-15.6); WHITE BLOOD COUNT 7.3 K/mm3 (4.0-10.0)
[2016-06-30] MEDS ORDERED: PARoxetine HCL 10 MG TABLET (FP) ONE (08:54)
[2016-06-30] MEDS: PANTOPRAZOLE 40 MG TABLET (FP) PO SCH (09:01)
[2016-06-30] MEDS: PARoxetine HCL 30 MG TABLET PO SCH (09:02)
[2016-06-30 09:03] LABS: CALCIUM 7.6 mg/dL (8.5-10.1); COCKROFT - GAULT 79.424; CREATININE 0.5 mg/dL (0.55-1.02)
[2016-06-30] MEDS: KETOCONAZOLE 2% CREAM - 60GM TUBE TP SCH (09:07)
[2016-06-30] MEDS: SILVER SULFADIAZINE 1% TOP CREAM 400 GM JAR TP SCH ×2 (09:07→23:41)
--- NOTE | 2016-06-30 10:43 | CONSULT ---
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 - Alcohol/Substance Use Hx Alcohol Use: No - Smoking History Smoking history: Never smoked Have you smoked in the past 12 months: No Home Medications - Allergies Allergies/Adverse Reactions: Allergies Allergy/AdvReac Type Severity Reaction Status Date / Time No Known Drug Allergies Allergy Verified 06/29/16 06:11 - Home Medications Home Medications: Ambulatory Orders Cholecalciferol (Vitamin D3) [Vitamin D3] 1,000 unit PO DAILY #0 tab.chew Carbidopa/Levodopa *Cr* 25/100 [Sinemet *Cr* 25/100 -] 1 combo PO QID 01/27/16 Cyclosporine [Restasis] 1 each OU BID 01/27/16 Paroxetine HCl [Paxil] 30 mg PO DAILY 01/27/16 Vitamin B Complex Vit C No.4 [Super B Complex] 150 mg PO DAILY 01/27/16 Vitamin E 400 unit PO DAILY 01/27/16 Quetiapine Fumarate [Quetiapine Fumarate ER] 25 mg PO HS 06/29/16 Physical Exam Vital Signs: Vital Signs Temperature 98.0 F 06/30/16 09:19 Pulse Rate 80 06/30/16 09:19 Respiratory Rate 20 06/30/16 09:19 Blood Pressure 114/80 06/30/16 09:19 O2 Sat by Pulse Oximetry (%) 98 06/29/16 00:40 Labs: CBC, BMP 06/30/16 07:45 06/30/16 07:45 Assessment/Plan VAscular Surgery 75 year old female with PMH of Parkinsons disease, depression & GERD who is admitted for right foot pain. HGistory obtained from the charts and also from the family ,her son present with her According to the son mother started complaining of right foot pain one month went to her PCP. 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 - Alcohol/Substance Use Hx Alcohol Use: No - Smoking History Smoking history: Never smoked Have you smoked in the past 12 months: No Home Medications - Allergies Allergies/Adverse Reactions: Allergies Allergy/AdvReac Type Severity Reaction Status Date / Time No Known Drug Allergies Allergy Verified 06/29/16 06:11 - Home Medications Home Medications: Ambulatory Orders Cholecalciferol (Vitamin D3) [Vitamin D3] 1,000 unit PO DAILY #0 tab.chew Carbidopa/Levodopa *Cr* 25/100 [Sinemet *Cr* 25/100 -] 1 combo PO QID 01/27/16 Cyclosporine [Restasis] 1 each OU BID 01/27/16 Paroxetine HCl [Paxil] 30 mg PO DAILY 01/27/16 Vitamin B Complex Vit C No.4 [Super B Complex] 150 mg PO DAILY 01/27/16 Vitamin E 400 unit PO DAILY 01/27/16 Quetiapine Fumarate [Quetiapine Fumarate ER] 25 mg PO HS 06/29/16 PE Head - NC/AT Lung - cTA Heart - RRR abd - soft,nt,nd ext - right third toe ulcer at base. Palpable DP pulse. A/P Well known to wound care clinic 1. MRI of right foot to rule out osteo of toe 2. Might need picc line if positive. 3. Circulation is intact. Kalia Ballard DO
--- NOTE | 2016-06-30 12:17 | PN ---
Teaching Attending Note Name of Resident: Charleen Pena ATTENDING PHYSICIAN STATEMENT I saw and evaluated the patient. I reviewed the resident's note and discussed the case with the resident. I agree with the resident's findings and plan as documented. Patient is comfortable with no acute distress, no fever or chills. Vital Signs Temperature 98.0 F 06/30/16 09:19 Pulse Rate 80 06/30/16 09:19 Respiratory Rate 20 06/30/16 09:19 Blood Pressure 114/80 06/30/16 09:19 O2 Sat by Pulse Oximetry (%) 98 06/29/16 00:40 CBCD WBC 7.3 K/mm3 (4.0-10.0) 06/30/16 07:45 RBC 3.38 M/mm3 (3.60-5.2) L 06/30/16 07:45 Hgb 10.5 GM/dL (10.7-15.3) L 06/30/16 07:45 Hct 29.9 % (32.4-45.2) L 06/30/16 07:45 MCV 88.5 fl (80-96) 06/30/16 07:45 MCHC 35.1 g/dl (32.0-36.0) 06/30/16 07:45 RDW 16.5 % (11.6-15.6) H 06/30/16 07:45 Plt Count 129 K/MM3 (134-434) L 06/30/16 07:45 MPV 7.9 fl (7.5-11.1) 06/30/16 07:45 CMP Sodium 147 mmol/L (136-145) H 06/30/16 07:45 Potassium 3.3 mmol/L (3.5-5.1) L 06/30/16 07:45 Chloride 112 mmol/L (98-107) H 06/30/16 07:45 Carbon Dioxide 28 mmol/L (21-32) 06/30/16 07:45 Anion Gap 7 (8-16) L 06/30/16 07:45 BUN 12 mg/dL (7-18) 06/30/16 07:45 Creatinine 0.5 mg/dL (0.55-1.02) L 06/30/16 07:45 Creat Clearance w eGFR > 60 (>60) 06/29/16 08:00 Random Glucose 100 mg/dL (74-106) D 06/30/16 07:45 Calcium 7.6 mg/dL (8.5-10.1) L 06/30/16 07:45 Total Bilirubin 1.1 mg/dL (0.2-1.0) H 06/29/16 08:00 AST 14 U/L (15-37) L 06/29/16 08:00 ALT 20 U/L (12-78) D 06/29/16 08:00 Alkaline Phosphatase 53 U/L (45-117) 06/29/16 08:00 Total Protein 6.2 g/dl (6.4-8.2) L 06/29/16 08:00 Albumin 3.3 g/dl (3.4-5.0) L 06/29/16 08:00 Current Medications Generic Name Dose Route Start Last Admin Trade Name Freq PRN Reason Stop Dose Admin Acetaminophen 650 mg 06/29/16 05:28 06/29/16 20:33 Tylenol - PO 650 mg Q4H PRN Administration FEVER OR PAIN Carbidopa/Levodopa 1 combo 06/29/16 14:00 06/30/16 06:31 Sinemet *Cr* 25/100 - PO 1 combo 5XD K[facility]Y Administration Heparin Sodium (Porcine) 5,000 unit 06/29/16 10:00 06/30/16 09:08 Heparin - SQ 5,000 unit Q8H-IV [facility] Administration Ketoconazole 1 applic 06/29/16 13:00 06/30/16 09:07 Nizoral 2% Cream - TP 1 applic DAILY [facility]Y Administration Pantoprazole Sodium 40 mg 06/29/16 10:00 06/30/16 09:01 Protonix - PO 40 mg DAILY K[facility]Y Administration Paroxetine HCl 30 mg 06/29/16 13:00 06/30/16 09:02 Paxil - PO 30 mg DAILY [place] Administration Piperacillin Sod/Tazobactam Sod 3.375 gm 06/29/16 18:00 06/30/16 09:03 Zosyn 3.375gm Ivpb (Pre-Docked) IVPB 3.375 gm Q8H-IV [place] Administration Quetiapine Fumarate 50 mg 06/29/16 22:00 06/29/16 22:34 Seroquel Xr - PO 50 mg HS [place]Y Administration Silver Sulfadiazine 1 applic 06/29/16 13:30 06/30/16 09:07 Silvadene - TP 1 applic BID [place]Y Administration Home Medications Medication Instructions Recorded Cholecalciferol (Vitamin D3) 1,000 unit PO DAILY #0 tab.chew 12/10/13 [Vitamin D3] Carbidopa/Levodopa *Cr* 25/100 1 combo PO QID 01/27/16 [Sinemet *Cr* 25/100 -] Cyclosporine [Restasis] 1 each OU BID 01/27/16 Paroxetine HCl [Paxil] 30 mg PO DAILY 01/27/16 Vitamin B Complex Vit C No.4 150 mg PO DAILY 01/27/16 [Super B Complex] Vitamin E 400 unit PO DAILY 01/27/16 Quetiapine Fumarate [Quetiapine 25 mg PO HS 06/29/16 Fumarate ER] Microbiology 06/29/16 01:12 Foot - Right Plantar Gram Stain - Final 06/29/16 01:12 Foot - Right Plantar Wound Culture - Preliminary Presumptive Mrsa (Pbp2a Pos) 06/29/16 09:30 Urine - Urine Clean Catch Urine Culture - Final 06/29/16 01:07 Blood - Peripheral Venous Blood Culture - Preliminary NO GROWTH OBTAINED AFTER 24 HOURS, INCUBATION TO CONTINUE FOR 4 DAYS. 06/29/16 01:07 Blood - Peripheral Venous Blood Culture - Preliminary NO GROWTH OBTAINED AFTER 24 HOURS, INCUBATION TO CONTINUE FOR 4 DAYS. ASSESSMENT AND PLAN: 75 y/o lady with h/o GERD, dementia , PArkinson's , who presented with draining ulcer on R foot # Acute cellulitis between right 3rd & 4th toes on IV antibiotic Zosyn continue as per ID. Vascular is on the case Dr. Ballard , final culture is still pending # Presented with Diarrhea: possible due to Abx use , r/o C diff pending # h/o Parkinson's :continue Sinemet # H/O depression : resume SSRI DVT px : Heparin sq
[2016-06-30] MEDS ORDERED: PT OWN MED DRAWER 7, Y5N ONE ×3 (12:23→23:35)
--- NOTE | 2016-06-30 13:11 | PN ---
Progress Note, Physician History of Present Illness: swelling decreasing patient leg looking better though the wound and the look worries me - Current Medication List Current Medications: Active Medications Acetaminophen (Tylenol -) 650 mg PO Q4H PRN PRN Reason: FEVER OR PAIN Last Admin: 06/29/16 20:33 Dose: 650 mg Carbidopa/Levodopa (Sinemet *Cr* 25/100 -) 1 combo PO 5XD [facility] Last Admin: 06/30/16 11:15 Dose: 1 combo Heparin Sodium (Porcine) (Heparin -) 5,000 unit SQ Q8H-IV [facility] Last Admin: 06/30/16 09:08 Dose: 5,000 unit Ketoconazole (Nizoral 2% Cream -) 1 applic TP DAILY [facility] Last Admin: 06/30/16 09:07 Dose: 1 applic Pantoprazole Sodium (Protonix -) 40 mg PO DAILY [facility] Last Admin: 06/30/16 09:01 Dose: 40 mg Paroxetine HCl (Paxil -) 30 mg PO DAILY [facility] Last Admin: 06/30/16 09:02 Dose: 30 mg Piperacillin Sod/Tazobactam Sod (Zosyn 3.375gm Ivpb (Pre-Docked)) 3.375 gm IVPB Q8H-IV [facility] Last Admin: 06/30/16 09:03 Dose: 3.375 gm Quetiapine Fumarate (Seroquel Xr -) 50 mg PO HS [facility] Last Admin: 06/29/16 22:34 Dose: 50 mg Silver Sulfadiazine (Silvadene -) 1 applic TP BID [facility] Last Admin: 06/30/16 09:07 Dose: 1 applic - Objective Vital Signs: Vital Signs Temperature 98.0 F 06/30/16 09:19 Pulse Rate 80 06/30/16 09:19 Respiratory Rate 20 06/30/16 09:19 Blood Pressure 114/80 06/30/16 09:19 O2 Sat by Pulse Oximetry (%) 95 06/30/16 09:00 Constitutional: Yes: No Distress, Calm Cardiovascular: Yes: Regular Rate and Rhythm Respiratory: Yes: Regular, CTA Bilaterally Gastrointestinal: Yes: Normal Bowel Sounds, Soft Extremities: Yes: Other (hammer foot) Integumentary: Yes: Other (ulcer.erythema) Wound/Incision: Yes: Other Neurological: Yes: Alert, Oriented Psychiatric: Yes: Alert, Oriented Labs: CBC, BMP 06/30/16 07:45 06/30/16 07:45 INR, PTT INR 1.24 (0.82-1.09) H 06/29/16 01:07 Assessment/Plan cellulitis of the rt foot hammer toes plan continue abx await mri results vascular following the patient
[2016-06-30] MEDS ORDERED: VANCOMYCIN 1 GRAM (PRE-DOCKED) 250 ML IVPB ONE (13:29)
--- NOTE | 2016-06-30 13:30 | PN ---
Physical Exam: SUBJECTIVE: Patient seen and examined Patient resting in bed NAD. Afebrile and hemodynamically stable. No acute events. pain in her R foot is decreased. Denies f/c, chest pain, sob, diaphoresis, palpitations, dizziness, abd pain, dysuria. Reports having diarrhea. OBJECTIVE: Vital Signs Period Temp Pulse Resp BP Sys/Mcginnis Pulse Ox Last 24 Hr 96.8 F-100 F 80-110 17-20 114-137/51-80 95 GENERAL: Awake, alert, and fully oriented, in no acute distress. difficulty initiating speech HEENT: EOMI, PERRLA, moist membranes LUNGS: Breath sounds equal, clear to auscultation bilaterally. HEART: Regular rate and rhythm, normal S1 and S2 ABDOMEN: Soft, nontender, not distended, normoactive bowel sounds MUSCULOSKELETAL: No CVA tenderness. UPPER EXTREMITIES: 2+ pulses, warm, well-perfused. No cyanosis. No clubbing. No peripheral edema. LOWER EXTREMITIES: 2+ pulses, warm, well-perfused. No calf tenderness. No peripheral edema. R foot less erythematous, purulence between 3rd adn 4th toes. less edematous. NEUROLOGICAL: Cranial nerves II-XII grossly intact. Normal speech. rigid extremities PSYCHIATRIC: Cooperative. Good eye contact. Appropriate mood and affect. Laboratory Results - last 24 hr 06/30/16 06/30/16 07:45 07:45 WBC 7.3 RBC 3.38 L Hgb 10.5 L Hct 29.9 L MCV 88.5 MCHC 35.1 RDW 16.5 H Plt Count 129 L MPV 7.9 Sodium 147 H Potassium 3.3 L Chloride 112 H Carbon Dioxide 28 Anion Gap 7 L BUN 12 Creatinine 0.5 L Random Glucose 100 D Calcium 7.6 L Active Medications Generic Name Dose Route Start Last Admin Trade Name Freq PRN Reason Stop Dose Admin Acetaminophen 650 mg 06/29/16 05:28 06/29/16 20:33 Tylenol - PO 650 mg Q4H PRN Administration FEVER OR PAIN Carbidopa/Levodopa 1 combo 06/29/16 14:00 06/30/16 11:15 Sinemet *Cr* 25/100 - PO 1 combo 5XD [facility] Administration Heparin Sodium (Porcine) 5,000 unit 06/29/16 10:00 06/30/16 09:08 Heparin - SQ 5,000 unit Q8H-IV [facility] Administration Ketoconazole 1 applic 06/29/16 13:00 06/30/16 09:07 Nizoral 2% Cream - TP 1 applic DAILY [facility] Administration Pantoprazole Sodium 40 mg 06/29/16 10:00 06/30/16 09:01 Protonix - PO 40 mg DAILY [facility] Administration Paroxetine HCl 30 mg 06/29/16 13:00 06/30/16 09:02 Paxil - PO 30 mg DAILY [facility] Administration Piperacillin Sod/Tazobactam Sod 3.375 gm 06/29/16 18:00 06/30/16 09:03 Zosyn 3.375gm Ivpb (Pre-Docked) IVPB 3.375 gm Q8H-IV [facility] Administration Quetiapine Fumarate 50 mg 06/29/16 22:00 06/29/16 22:34 Seroquel Xr - PO 50 mg HS [facility] Administration Silver Sulfadiazine 1 applic 06/29/16 13:30 06/30/16 09:07 Silvadene - TP 1 applic BID [facility] Administration ASSESSMENT/PLAN: This is a 75 year old female with PMH of Parkinsons disease, depression & GERD who presents to ED with right foot ulcer & cellulitis, failed PO abx. Right foot Ulcer with superimposed acute cellulitis and possible abscess -improved -between 3rd and 4th metatarsals -Zosyn per ID -wound culture =MRSA; add vanco, contact precaution -Vascular: MRI foot r/o osteo, may need picc if +. no debridement at this time -IVF NS @50 -Tylenol pain management -blood cultures pending Diarrhea -so far no more episodes -likely side effect of recent clindamycin -r/o C. Diff, sent toxin, stool cultures, ova/parasites Parkinsons disease -carbidopa/levodopa -speech/swallow eval Depression -seroquel -paxil FEN -NS@50 -repleted K -Hep, PPI -Regular diet Dispo: admit to [facility] Problem List - Problems (1) MRSA cellulitis Code(s): L03.90 - CELLULITIS, UNSPECIFIED B95.62 - METHICILLIN RESIS STAPH INFCT CAUSING DISEASES CLASSD ELSWHR (2) Right foot infection Code(s): L08.9 - LOCAL INFECTION OF THE SKIN AND SUBCUTANEOUS TISSUE, UNSP (3) Parkinson disease Code(s): G20 - PARKINSON'S DISEASE (4) Depressed Code(s): F32.9 - MAJOR DEPRESSIVE DISORDER, SINGLE EPISODE, UNSPECIFIED (5) GERD (gastroesophageal reflux disease) Code(s): K21.9 - GASTRO-ESOPHAGEAL REFLUX DISEASE WITHOUT ESOPHAGITIS Visit type - Emergency Visit Emergency Visit: Yes ED Registration Date: 06/29/16 Care time: The patient presented to the Emergency Department on the above date and was hospitalized for further evaluation of their emergent condition. - New Patient This patient is new to me today: No - Critical Care Critical Care patient: No - Discharge Referral Referred to [facility] Med P.C.: No
[2016-06-30] MEDS ORDERED: POTASSIUM CHLORIDE TABS 20 MEQ TABLET.ER (FP) PO ONE (14:00)
--- NOTE | 2016-06-30 14:13 | CONSULT ---
Admitting History and Physical - Primary Care Physician PCP: Geovany Savage - Admission History of Present Illness: Patient is a 75 year old female with PMH of Parkinsons disease, depression & GERD who presents to ED with her 2 sons for right foot pain. Speech/swallowing evaluation ordered for this pt with advanced Parkinsons disease. 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 Language barrier.) Attention: Distractible Ability to Follow Directions: Fair Head/Neck Control: Fair - Hearing Hearing: Impaired Speech Evaluation - Communication Primary Language: EQUATORIAL GUINEAN Communication: Yes: Simple Responses, Dysarthria (hypokinetic) Oral Expression Ability: Yes: Moderate Impairment - Speech Production Dysarthria: Yes: Hypokinetic Able to Make Needs Known: Yes: Moderately Impaired Intelligibility: Yes: Moderately Impaired - Speech Characteristics Voice Loudness: Mildly Soft/Quiet, Moderately Soft/Quiet Voice Pitch: Yes: Normal Voice Phonatory-based Quality: Yes: Normal Speech Clarity: < 75% Nasal Resonance: Normal Rate of Speech: Too Fast - Language/Auditory Comprehension Follows: Yes: 1 Stage Simple Commands - Swallow Evaluation/Bedside Assessment Current Nutritional Intake: Regular, Thin Liquids Oral Secretions: Yes: WFL Dentition: Yes: Adequate, Missing Teeth Facial Movement: Involuntary (bilat tremor with retraction) Lingual Movement: Symmetric Laryngeal Elevation: WFL Laryngeal Movement: Able to Palpate Rate of Intake: Slow/Holding Bolus Size: Small Labial Seal: WFL Chewing: Impaired (extended) Oral Prep Time: Increased A-P Transit: Impaired Pocketing: Present Bilaterally Coughing/Throat Clear: No Change in Voice: No Recommendations - Speech Evaluation, Impression/Plan Impression: Hypokinetic dysathria, Language barrier but seems confused. Swallowing is quite brisk with good tolerance of thin liquid from a straw. Extended mastication. Son reports: "fair" appetite at home, but with recent weightloss, drinking 2 ensure daily at home. - Dysphagia Impressions/Plan Swallowing Skills: Impaired (oral pharyngeal. Doubt aspirating.) Dysphagia Impressions: Mild Impairment, Moderate Impairment, Ongoing Evaluation *Silent aspiration: cannot be R/O at bedside Dysphagia Treatment Plan: Small Bites, Chin Tuck/Down, Clear Pocket Food, Safe Rate, 1/2 tsp. at a time, Elevate HOB during feed Recommendations: Other (feed pt. Alternate solids with liquids. Feed slowly, fully upright.) - Recommendations Diet Consistency: Dysphagia Minced, 1 - 2 Soft Items Medication Administration: Whole with water Liquids: Thin Liquids Supplement: Ensure (x 2 daily, b/n meals.)
[2016-07-01] MEDS: HEPARIN NA (PORCINE) 5,000 UNITS/ML 1ML VIAL SQ SCH ×3 (03:04→17:43)
[2016-07-01] MEDS: PIPERACILLIN/TAZOB 3.375 GM/50 ML PRE-DOCKED IVPB SCH ×2 (03:10→10:16)
--- NOTE | 2016-07-01 06:37 | MSN ---
Progress Note (short form) - Note Progress Note: 75 yo female here rt 3rd & 4th toe cellulitis. PMH of Parkinson's disease, depression, & GERD No acute events in last 24 hrs Denies nausea, fevers, diarrhea. PSHx sig for Rt second toe amputation due to deformity. Last Vital Signs Temp Pulse Resp BP Pulse Ox 98.5 F 93 H 20 136/64 95 06/30/16 18:48 06/30/16 18:48 06/30/16 18:48 06/30/16 18:48 06/30/16 21:00 Microbiology 06/29/16 01:12 Foot - Right Plantar Wound Culture - Preliminary Presumptive Mrsa (Pbp2a Pos) Laboratory Results - last 24 hr 06/30/16 06/30/16 07:45 07:45 WBC 7.3 RBC 3.38 L Hgb 10.5 L Hct 29.9 L MCV 88.5 MCHC 35.1 RDW 16.5 H Plt Count 129 L MPV 7.9 Sodium 147 H Potassium 3.3 L Chloride 112 H Carbon Dioxide 28 Anion Gap 7 L BUN 12 Creatinine 0.5 L Random Glucose 100 D Calcium 7.6 L General: alert and oriented to person and place; communicates in polish Head: Normocephalic Neck: supple, no JVD, no carotid bruits Heart: NOrmal S1 & S2 Lungs: CTA Abdomen: slight TTP LLQ; hyperactive bowel sounds MSK: LT Foot hammer toe deformity involving all toes RT Foot hammer toe deformity invovling all toes; 2nd toe amputation; slight TTP plantar surface 3rd & 4th toe; Not currently draining. Assessment: This is a 75 year old female with PMH of Parkinsons disease, depression & GERD who presents to ED with right foot ulcer & cellulitis, failed PO abx. Right foot Ulcer with superimposed acute cellulitis and possible abscess -Zosyn per ID -wound culture =MRSA; add vanco, contact precaution -Vascular: MRI foot r/o osteo, may need picc if +. no debridement at this time Diarrhea -likely side effect of recent clindamycin -r/o C. Diff, sent toxin, stool cultures, ova/parasites Parkinsons disease -carbidopa/levodopa -speech/swallow eval Depression -seroquel -paxil
[2016-07-01 08:12] LABS: MCH 31.7 pg (25.7-33.7); MCHC 36.2 g/dl (32.0-36.0); MEAN CELL VOLUME 87.6 fl (80-96); MEAN PLT VOLUME 8.1 fl (7.5-11.1); PLATELET COUNT 149 K/MM3 (134-434); RDW 15.9 % (11.6-15.6); WHITE BLOOD COUNT 6.3 K/mm3 (4.0-10.0)
[2016-07-01 08:17] LABS: CALCIUM 7.9 mg/dL (8.5-10.1); COCKROFT - GAULT 79.424; CREATININE 0.5 mg/dL (0.55-1.02); MAGNESIUM 2.3 mg/dL (1.8-2.4); PHOSPHOROUS 3.1 mg/dL (2.5-4.9)
[2016-07-01 08:51] LABS: C-REACTIVE PROTEIN 5.6 MG/DL (0.00-0.3)
[2016-07-01] MEDS ORDERED: VANCOMYCIN 1 GRAM (PRE-DOCKED) 250 ML IVPB ONE (10:00)
[2016-07-01] MEDS ORDERED: PARoxetine HCL 10 MG TABLET (FP) ONE (10:13)
[2016-07-01] MEDS ORDERED: PICC LINE 8 ML FLUSH PROTOCOL IVPUSH PRN ×2 (10:13→15:36)
[2016-07-01] MEDS: PARoxetine HCL 30 MG TABLET PO SCH (10:17)
[2016-07-01] MEDS: PANTOPRAZOLE 40 MG TABLET (FP) PO SCH (10:17)
[2016-07-01] MEDS: SILVER SULFADIAZINE 1% TOP CREAM 400 GM JAR TP SCH ×2 (10:21→23:36)
[2016-07-01] MEDS: KETOCONAZOLE 2% CREAM - 60GM TUBE TP SCH (10:21)
[2016-07-01] MEDS ORDERED: PT OWN MED DRAWER 7, Y5N ONE ×2 (10:25→23:17)
--- NOTE | 2016-07-01 11:54 | PN ---
Progress Note, HEPATOLOGIST - Note Progress Note: Selected Entries 06/29/16 06/29/16 06/29/16 00:40 09:28 13:55 Breakfast Supper Temperature 98.5 F 99.4 F 99.3 F 06/29/16 06/29/16 06/30/16 18:54 22:50 02:24 Breakfast Supper 75% Temperature 99.5 F 100 F H 99 F 06/30/16 06/30/16 06/30/16 07:22 09:19 18:48 Breakfast Supper 75% Temperature 96.8 F L 98.0 F 98.5 F 07/01/16 07/01/16 06:00 11:25 Breakfast 75% Supper Temperature 97.7 F Pt presently on all minced food. Pt can likely tolerate some soft solids such as fish, mac and cheese, lasagne, muffins, etc added to minced diet. - Recommendations Diet Consistency: Dysphagia Minced, 1 - 2 Soft Items Medication Administration: Whole with water Liquids: Thin Liquids Supplement: Ensure (x 2 daily, b/n meals.)
--- NOTE | 2016-07-01 15:13 | PN ---
Progress Note, Physician History of Present Illness: patient better swelling looks better - Current Medication List Current Medications: Active Medications Acetaminophen (Tylenol -) 650 mg PO Q4H PRN PRN Reason: FEVER OR PAIN Last Admin: 06/29/16 20:33 Dose: 650 mg Carbidopa/Levodopa (Sinemet *Cr* 25/100 -) 1 combo PO 5XD [facility] Last Admin: 07/01/16 10:26 Dose: 1 combo Heparin Sodium (Porcine) (Heparin -) 5,000 unit SQ Q8H-IV [facility] Last Admin: 07/01/16 10:17 Dose: 5,000 unit IV Flush (Picc Line Flush) 8 ml IVPUSH PRN PRN PRN Reason: Protocol Ketoconazole (Nizoral 2% Cream -) 1 applic TP DAILY [facility] Last Admin: 07/01/16 10:21 Dose: 1 applic Pantoprazole Sodium (Protonix -) 40 mg PO DAILY [facility] Last Admin: 07/01/16 10:17 Dose: 40 mg Paroxetine HCl (Paxil -) 30 mg PO DAILY [facility] Last Admin: 07/01/16 10:17 Dose: 30 mg Piperacillin Sod/Tazobactam Sod (Zosyn 3.375gm Ivpb (Pre-Docked)) 3.375 gm IVPB Q8H-IV [facility] Last Admin: 07/01/16 10:16 Dose: 3.375 gm Quetiapine Fumarate (Seroquel Xr -) 50 mg PO HS [facility] Last Admin: 06/30/16 23:38 Dose: 50 mg Silver Sulfadiazine (Silvadene -) 1 applic TP BID [facility] Last Admin: 07/01/16 10:21 Dose: 1 applic - Objective Vital Signs: Vital Signs Temperature 97.7 F 07/01/16 06:00 Pulse Rate 92 H 07/01/16 06:00 Respiratory Rate 20 07/01/16 06:00 Blood Pressure 131/65 07/01/16 06:00 O2 Sat by Pulse Oximetry (%) 95 06/30/16 21:00 Constitutional: Yes: No Distress, Calm Cardiovascular: Yes: Regular Rate and Rhythm Respiratory: Yes: Regular, CTA Bilaterally Gastrointestinal: Yes: Normal Bowel Sounds, Soft Musculoskeletal: Yes: Other Extremities: Yes: Erythema (foot better), Other Integumentary: Yes: Erythema Wound/Incision: Yes: Clean/Dry Neurological: Yes: Alert, Oriented Psychiatric: Yes: Alert, Oriented Labs: CBC, BMP 07/01/16 06:15 07/01/16 06:15 INR, PTT INR 1.24 (0.82-1.09) H 06/29/16 01:07 Assessment/Plan cellulitis of the rt foot hammer toes osteo of rt foot plan mri result noted cx result noted patient will be treated as osteo also will need surgeries plan on the foot vanco to continue
--- NOTE | 2016-07-01 15:39 | PN ---
Physical Exam: SUBJECTIVE: Patient seen and examined Patient resting in bed NAD. Afebrile and hemodynamically stable. No acute events. pain and swelling in her R foot decreased. Denies f/c, chest pain, sob, diaphoresis, palpitations, dizziness, abd pain, dysuria. Reports having diarrhea. OBJECTIVE: Vital Signs Period Temp Pulse Resp BP Sys/Mcginnis Pulse Ox Last 24 Hr 97.7 F-98.8 F 92-102 20-20 131-154/64-73 95 GENERAL: Awake, alert, and fully oriented, in no acute distress. difficulty initiating speech HEENT: EOMI, PERRLA, moist membranes LUNGS: Breath sounds equal, clear to auscultation bilaterally. HEART: Regular rate and rhythm, normal S1 and S2 ABDOMEN: Soft, nontender, not distended, normoactive bowel sounds MUSCULOSKELETAL: No CVA tenderness. UPPER EXTREMITIES: 2+ pulses, warm, well-perfused. No cyanosis. No clubbing. No peripheral edema. LOWER EXTREMITIES: 2+ pulses, warm, well-perfused. No calf tenderness. No peripheral edema. R foot less erythematous, less purulence between 3rd adn 4th toes. less edematous. NEUROLOGICAL: Cranial nerves II-XII grossly intact. Normal speech. rigid extremities PSYCHIATRIC: Cooperative. Good eye contact. Appropriate mood and affect. Laboratory Results - last 24 hr 07/01/16 07/01/16 07/01/16 06:15 06:15 06:15 WBC 6.3 RBC 3.71 Hgb 11.8 D Hct 32.5 MCV 87.6 MCHC 36.2 H RDW 15.9 H Plt Count 149 MPV 8.1 ESR Sodium 144 Potassium 3.6 Chloride 106 Carbon Dioxide 31 Anion Gap 7 L BUN 12 Creatinine 0.5 L Random Glucose 78 D Calcium 7.9 L Phosphorus 3.1 Magnesium 2.3 C-Reactive Protein 5.6 H Cancelled 07/01/16 06:15 WBC RBC Hgb Hct MCV MCHC RDW Plt Count MPV ESR 10 Sodium Potassium Chloride Carbon Dioxide Anion Gap BUN Creatinine Random Glucose Calcium Phosphorus Magnesium C-Reactive Protein Active Medications Generic Name Dose Route Start Last Admin Trade Name Freq PRN Reason Stop Dose Admin Acetaminophen 650 mg 06/29/16 05:28 06/29/16 20:33 Tylenol - PO 650 mg Q4H PRN Administration FEVER OR PAIN Carbidopa/Levodopa 1 combo 04/11/17 14:00 07/01/16 15:14 Sinemet *Cr* 25/100 - PO 1 combo 5XD [facility] Administration Heparin Sodium (Porcine) 5,000 unit 06/29/16 10:00 07/01/16 10:17 Heparin - SQ 5,000 unit Q8H-IV [facility] Administration IV Flush 8 ml 07/01/16 10:13 Picc Line Flush IVPUSH PRN PRN Protocol IV Flush 8 ml 07/01/16 15:36 Picc Line Flush IVPUSH PRN PRN Protocol Vancomycin HCl 1,250 mg/ 250 mls @ 150 mls/hr 07/02/16 10:00 Dextrose IVPB DAILY [facility] Protocol Ketoconazole 1 applic 06/29/16 13:00 07/01/16 10:21 Nizoral 2% Cream - TP 1 applic DAILY [facility] Administration Pantoprazole Sodium 40 mg 06/29/16 10:00 07/01/16 10:17 Protonix - PO 40 mg DAILY [facility] Administration Paroxetine HCl 30 mg 06/29/16 13:00 07/01/16 10:17 Paxil - PO 30 mg DAILY [facility] Administration Piperacillin Sod/Tazobactam Sod 3.375 gm 06/29/16 18:00 07/01/16 10:16 Zosyn 3.375gm Ivpb (Pre-Docked) IVPB 3.375 gm Q8H-IV [facility] Administration Quetiapine Fumarate 50 mg 06/29/16 22:00 06/30/16 23:38 Seroquel Xr - PO 50 mg HS [facility] Administration Silver Sulfadiazine 1 applic 06/29/16 13:30 07/01/16 10:21 Silvadene - TP 1 applic BID [facility] Administration ASSESSMENT/PLAN: This is a 75 year old female with PMH of Parkinsons disease, depression & GERD who presents to ED with right foot ulcer & cellulitis, failed PO abx. Right foot Ulcer with superimposed acute cellulitis and possible abscess -improved -between 3rd and 4th metatarsals -MRI=Osteo -wound culture =MRSA -ID: IV vanco -Vascular: no debridement at this time -Podiatry consulter -PICC line STAT for dc tomorrow -IVF NS @50 -Tylenol pain management -blood cultures negative Diarrhea -resolved Parkinsons disease -carbidopa/levodopa -speech/swallow eval: required minced dysphagia diet with thin liquid Depression -seroquel -jeanineil FEN -NS@50 -repleted K -Hep, PPI -Regular diet Dispo: admit to [facility], plan DC to SNF Problem List - Problems (1) MRSA cellulitis Code(s): L03.90 - CELLULITIS, UNSPECIFIED B95.62 - METHICILLIN RESIS STAPH INFCT CAUSING DISEASES CLASSD ELSWHR (2) Right foot infection Code(s): L08.9 - LOCAL INFECTION OF THE SKIN AND SUBCUTANEOUS TISSUE, UNSP (3) Parkinson disease Code(s): G20 - PARKINSON'S DISEASE (4) Depressed Code(s): F32.9 - MAJOR DEPRESSIVE DISORDER, SINGLE EPISODE, UNSPECIFIED (5) GERD (gastroesophageal reflux disease) Code(s): K21.9 - GASTRO-ESOPHAGEAL REFLUX DISEASE WITHOUT ESOPHAGITIS (6) MRSA (methicillin resistant Staphylococcus aureus) Code(s): A49.02 - METHICILLIN RESIS STAPH INFECTION, UNSP SITE (7) Osteomyelitis of ankle or foot Code(s): M86.9 - OSTEOMYELITIS, UNSPECIFIED Visit type - Emergency Visit Emergency Visit: Yes ED Registration Date: 06/29/16 Care time: The patient presented to the Emergency Department on the above date and was hospitalized for further evaluation of their emergent condition. - New Patient This patient is new to me today: No - Critical Care Critical Care patient: No - Discharge Referral Referred to [facility] No
--- NOTE | 2016-07-01 18:44 | PN ---
Teaching Attending Note Name of Resident: Charleen Pena ATTENDING PHYSICIAN STATEMENT I saw and evaluated the patient. I reviewed the resident's note and discussed the case with the resident. I agree with the resident's findings and plan as documented. Patient is comfortable with no acute distress, no shortness of breath, no nausea or vomiting, no headache, no abdominal pain. No fever or chills. Vital Signs Temperature 98.8 F 07/01/16 15:11 Pulse Rate 102 H 07/01/16 15:11 Respiratory Rate 20 07/01/16 15:11 Blood Pressure 154/73 07/01/16 15:11 O2 Sat by Pulse Oximetry (%) 95 07/01/16 09:00 CBCD WBC 6.3 K/mm3 (4.0-10.0) 07/01/16 06:15 RBC 3.71 M/mm3 (3.60-5.2) 07/01/16 06:15 Hgb 11.8 GM/dL (10.7-15.3) D 07/01/16 06:15 Hct 32.5 % (32.4-45.2) 07/01/16 06:15 MCV 87.6 fl (80-96) 07/01/16 06:15 MCHC 36.2 g/dl (32.0-36.0) H 07/01/16 06:15 RDW 15.9 % (11.6-15.6) H 07/01/16 06:15 Plt Count 149 K/MM3 (134-434) 07/01/16 06:15 MPV 8.1 fl (7.5-11.1) 07/01/16 06:15 CMP Sodium 144 mmol/L (136-145) 07/01/16 06:15 Potassium 3.6 mmol/L (3.5-5.1) 07/01/16 06:15 Chloride 106 mmol/L (98-107) 07/01/16 06:15 Carbon Dioxide 31 mmol/L (21-32) 07/01/16 06:15 Anion Gap 7 (8-16) L 07/01/16 06:15 BUN 12 mg/dL (7-18) 07/01/16 06:15 Creatinine 0.5 mg/dL (0.55-1.02) L 07/01/16 06:15 Creat Clearance w eGFR > 60 (>60) 06/29/16 08:00 Random Glucose 78 mg/dL (74-106) D 07/01/16 06:15 Calcium 7.9 mg/dL (8.5-10.1) L 07/01/16 06:15 Total Bilirubin 1.1 mg/dL (0.2-1.0) H 06/29/16 08:00 AST 14 U/L (15-37) L 06/29/16 08:00 ALT 20 U/L (12-78) D 06/29/16 08:00 Alkaline Phosphatase 53 U/L (45-117) 06/29/16 08:00 Total Protein 6.2 g/dl (6.4-8.2) L 06/29/16 08:00 Albumin 3.3 g/dl (3.4-5.0) L 06/29/16 08:00 Current Medications Generic Name Dose Route Start Last Admin Trade Name Freq PRN Reason Stop Dose Admin Acetaminophen 650 mg 06/29/16 05:28 06/29/16 20:33 Tylenol - PO 650 mg Q4H PRN Administration FEVER OR PAIN Carbidopa/Levodopa 1 combo 06/29/16 14:00 07/01/16 17:43 Sinemet *Cr* 25/100 - PO 1 combo 5XD [facility] Administration Heparin Sodium (Porcine) 5,000 unit 06/29/16 10:00 07/01/16 17:43 Heparin - SQ 5,000 unit Q8H-IV [facility] Administration IV Flush 8 ml 07/01/16 10:13 Picc Line Flush IVPUSH PRN PRN Protocol IV Flush 8 ml 07/01/16 15:36 Picc Line Flush IVPUSH PRN PRN Protocol Vancomycin HCl 1,250 mg/ 250 mls @ 150 mls/hr 07/02/16 10:00 Dextrose IVPB DAILY [facility] Protocol Ketoconazole 1 applic 06/29/16 13:00 07/01/16 10:21 Nizoral 2% Cream - TP 1 applic DAILY [facility] Administration Pantoprazole Sodium 40 mg 06/29/16 10:00 07/01/16 10:17 Protonix - PO 40 mg DAILY [facility] Administration Paroxetine HCl 30 mg 06/29/16 13:00 07/01/16 10:17 Paxil - PO 30 mg DAILY [facility] Administration Quetiapine Fumarate 50 mg 06/29/16 22:00 06/30/16 23:38 Seroquel Xr - PO 50 mg HS [facility] Administration Silver Sulfadiazine 1 applic 06/29/16 13:30 07/01/16 10:21 Silvadene - TP 1 applic BID [facility] Administration Home Medications Medication Instructions Recorded Cholecalciferol (Vitamin D3) 1,000 unit PO DAILY #0 tab.chew 12/10/13 [Vitamin D3] Carbidopa/Levodopa *Cr* 25/100 1 combo PO QID 01/27/16 [Sinemet *Cr* 25/100 -] Cyclosporine [Restasis] 1 each OU BID 01/27/16 Paroxetine HCl [Paxil] 30 mg PO DAILY 01/27/16 Vitamin B Complex Vit C No.4 150 mg PO DAILY 01/27/16 [Super B Complex] Vitamin E 400 unit PO DAILY 01/27/16 Quetiapine Fumarate [Quetiapine 25 mg PO HS 06/29/16 Fumarate ER] Microbiology 06/29/16 01:12 Foot - Right Plantar Gram Stain - Final 06/29/16 01:12 Foot - Right Plantar Wound Culture - Final S Aureus 06/29/16 01:07 Blood - Peripheral Venous Blood Culture - Preliminary NO GROWTH OBTAINED AFTER 48 HOURS, INCUBATION TO CONTINUE FOR 3 DAYS. 06/29/16 01:07 Blood - Peripheral Venous Blood Culture - Preliminary NO GROWTH OBTAINED AFTER 48 HOURS, INCUBATION TO CONTINUE FOR 3 DAYS. 06/29/16 09:30 Urine - Urine Clean Catch Urine Culture - Final ASSESSMENT AND PLAN: 75 y/o lady with h/o GERD, dementia , PArkinson's , who presented with draining ulcer on R foot # Acute cellulitis of right plantar aspect of the foot on IV antibiotic Vancomycin since the culture positive for MRSA and MRI positive for Osteomyelitis ;will get Podiatry consult and going for PICC line in am for treatment of osteo with IV antibiotic . # Presented with Diarrhea: no further diarrhea noted # h/o Parkinson's :continue Sinemet # H/O depression : resume SSRI DVT px : Heparin sq
[2016-07-02] MEDS: HEPARIN NA (PORCINE) 5,000 UNITS/ML 1ML VIAL SQ SCH ×3 (03:27→17:28)
[2016-07-02] MEDS: ACETAMINOPHEN 325 MG TABLET (FP) PO PRN (03:27)
[2016-07-02 07:13] LABS: MCH 31.8 pg (25.7-33.7); MCHC 36.4 g/dl (32.0-36.0); MEAN CELL VOLUME 87.4 fl (80-96); PLATELET COUNT 182 K/MM3 (134-434); RDW 16.5 % (11.6-15.6); WHITE BLOOD COUNT 6.1 K/mm3 (4.0-10.0)
[2016-07-02] MEDS ORDERED: PARoxetine HCL 10 MG TABLET (FP) ONE (10:23)
[2016-07-02] MEDS ORDERED: PT OWN MED DRAWER 7, Y5N ONE ×2 (10:24→23:02)
[2016-07-02] MEDS: PARoxetine HCL 30 MG TABLET PO SCH (10:33)
[2016-07-02] MEDS: PANTOPRAZOLE 40 MG TABLET (FP) PO SCH (10:33)
[2016-07-02] MEDS: KETOCONAZOLE 2% CREAM - 60GM TUBE TP SCH (10:34)
[2016-07-02] MEDS: SILVER SULFADIAZINE 1% TOP CREAM 400 GM JAR TP SCH ×2 (10:34→23:48)
--- NOTE | 2016-07-02 10:45 | CONSULT ---
Consult - text type - Consultation Consultation Note: Podiatry Consultation: Pleasant 75 year old lady, dementia, presents with plantar 4th toe ulcer of unknown duration. Patient is poor historian, her son Jay Jay is not here currently. She did develop increased redness/swelling to the 4th toe, failed trial of PO clinda. Currently afebrile, VSS. She is significantly contracted with contractures of all the toes. PMHx: GERD, Parkinson's, dementia, depression Meds: noted in chart ALL: NKMA GONSALO: R foot: pedal pulses palpable, TG wnl, CFT brisk to all toes. There is an open wound plantar medial aspect of the 4th toe. The wound probes deep, no palpable bone appreciated. There is exposed flexor tendon. There is no purulence, no fluctuance, no streaking cellulitis, no signs of active infection. There is moderate swelling to the 4th toe. Wound Cx: MRSA R foot MRI: bone marrow edema base of proximal phalanx 4th toe Imp: 75 year old F with R 4th toe ulcer, osteomyelitis 1. Informed consent was obtained via phone consent with her son Jay Jay. Risks , benefits and alterantives discussed at length with him and he provided consent for bedside procedure. 2. Bedside excisional debridement was performed to level of subcutaneous tissue and muscle utilizing #15 blade scalpel. A flexor tenotomy was performed, which achieved appropriate reduction of contracture deformity. A dry sterile dressing was applied. Patient tolerated the procedure well. 3. Rx for bactroban + DSD R fourth toe daily 4. PICC line for MRSA osteo as per ID 5. Will need to follow closely, f/u at [facility] on 07/06/16. 6. Thanks for the courtesy of this consultation. Shirley Barclay DPM
--- NOTE | 2016-07-02 11:13 | PN ---
Progress Note, Physician History of Present Illness: patient stable d/w podiatry agree with the plan - Current Medication List Current Medications: Active Medications Acetaminophen (Tylenol -) 650 mg PO Q4H PRN PRN Reason: FEVER OR PAIN Last Admin: 07/02/16 03:27 Dose: 650 mg Carbidopa/Levodopa (Sinemet *Cr* 25/100 -) 1 combo PO 5XD [facility] Last Admin: 07/02/16 10:34 Dose: 1 combo Heparin Sodium (Porcine) (Heparin -) 5,000 unit SQ Q8H-IV [facility] Last Admin: 07/02/16 03:27 Dose: 5,000 unit IV Flush (Picc Line Flush) 8 ml IVPUSH PRN PRN PRN Reason: Protocol IV Flush (Picc Line Flush) 8 ml IVPUSH PRN PRN PRN Reason: Protocol Vancomycin HCl 1,250 mg/ (Dextrose) 250 mls @ 150 mls/hr IVPB DAILY [facility] PRN Reason: Protocol Ketoconazole (Nizoral 2% Cream -) 1 applic TP DAILY [facility] Last Admin: 07/02/16 10:34 Dose: Not Given Mupirocin (Bactroban 2% Ointment -) 1 applic TP BID [facility] Pantoprazole Sodium (Protonix -) 40 mg PO DAILY [facility] Last Admin: 07/02/16 10:33 Dose: 40 mg Paroxetine HCl (Paxil -) 30 mg PO DAILY [facility] Last Admin: 07/02/16 10:33 Dose: 30 mg Quetiapine Fumarate (Seroquel Xr -) 50 mg PO HS [facility] Last Admin: 07/01/16 23:36 Dose: 50 mg Silver Sulfadiazine (Silvadene -) 1 applic TP BID [facility] Last Admin: 07/02/16 10:34 Dose: Not Given - Objective Vital Signs: Vital Signs Temperature 97.5 F L 07/02/16 06:00 Pulse Rate 106 H 07/02/16 06:00 Respiratory Rate 20 07/02/16 06:00 Blood Pressure 107/58 07/02/16 06:00 O2 Sat by Pulse Oximetry (%) 98 07/01/16 21:00 Constitutional: Yes: No Distress, Calm Cardiovascular: Yes: Regular Rate and Rhythm Respiratory: Yes: Regular, CTA Bilaterally Gastrointestinal: Yes: Normal Bowel Sounds, Soft Musculoskeletal: Yes: Other Extremities: Yes: Other Integumentary: Yes: Erythema (resolving) Wound/Incision: Yes: Dressing Dry and Intact Neurological: Yes: Alert, Oriented Psychiatric: Yes: Alert, Oriented Labs: CBC, BMP 07/02/16 06:40 07/01/16 06:15 INR, PTT INR 1.24 (0.82-1.09) H 06/29/16 01:07 Assessment/Plan cellulitis of the rt foot hammer toes osteo of rt foot plan mri result noted cx result noted patient will be treated as osteo check vanco trough
--- NOTE | 2016-07-02 11:26 | PN ---
Progress Note, LPN PER DIEM - Note Progress Note: Selected Entries 06/30/16 07/01/16 07/01/16 18:48 06:00 10:00 Breakfast Lunch Supper 75% Temperature 97.7 F 98.1 F 07/01/16 07/01/16 07/01/16 11:25 15:11 16:30 Breakfast 75% Lunch 75% 75% Supper Temperature 98.8 F 07/01/16 07/01/16 07/02/16 18:17 19:14 02:00 Breakfast Lunch Supper 75% Temperature 98.2 F 99.8 F H 07/02/16 06:00 Breakfast Lunch Supper Temperature 97.5 F L Diet ordered upgraded. Monitor tolerance.
[2016-07-02] MEDS: VANCOMYCIN 1,250 MG in DEXTROSE 5%-WATER - 250 ML IVPB SCH (11:43)
--- NOTE | 2016-07-02 14:29 | PN ---
Physical Exam: SUBJECTIVE: Patient seen and examined Patient resting in bed NAD. Afebrile and hemodynamically stable. No acute events. pain and swelling in her R foot decreased. Denies f/c, chest pain, sob, diaphoresis, palpitations, dizziness, abd pain, dysuria. Reports having diarrhea. OBJECTIVE: Vital Signs Period Temp Pulse Resp BP Sys/Mcginnis Pulse Ox Last 24 Hr 97.5 F-99.8 F 80-106 18-20 107-154/50-75 98 GENERAL: Awake, alert, and fully oriented, in no acute distress. difficulty initiating speech HEENT: EOMI, PERRLA, moist membranes LUNGS: Breath sounds equal, clear to auscultation bilaterally. HEART: Regular rate and rhythm, normal S1 and S2 ABDOMEN: Soft, nontender, not distended, normoactive bowel sounds MUSCULOSKELETAL: No CVA tenderness. UPPER EXTREMITIES: 2+ pulses, warm, well-perfused. No cyanosis. No clubbing. No peripheral edema. LOWER EXTREMITIES: 2+ pulses, warm, well-perfused. No calf tenderness. No peripheral edema. R foot less erythematous, less purulence between 3rd adn 4th toes. less edematous. NEUROLOGICAL: Cranial nerves II-XII grossly intact. Normal speech. rigid extremities PSYCHIATRIC: Cooperative. Good eye contact. Appropriate mood and affect. Laboratory Results - last 24 hr 07/01/16 07/02/16 20:20 06:40 WBC 6.1 RBC 3.94 Hgb 12.5 Hct 34.4 MCV 87.4 MCHC 36.4 H RDW 16.5 H Plt Count 182 D MPV 8.0 Stool Occult Blood Negative Active Medications Generic Name Dose Route Start Last Admin Trade Name Freq PRN Reason Stop Dose Admin Acetaminophen 650 mg 06/29/16 05:28 07/02/16 03:27 Tylenol - PO 650 mg Q4H PRN Administration FEVER OR PAIN Carbidopa/Levodopa 1 combo 06/29/16 14:00 07/02/16 13:49 Sinemet *Cr* 25/100 - PO 1 combo 5XD [facility] Administration Heparin Sodium (Porcine) 5,000 unit 06/29/16 10:00 07/02/16 13:25 Heparin - SQ Not Given Q8H-IV [facility] IV Flush 8 ml 07/01/16 10:13 Picc Line Flush IVPUSH PRN PRN Protocol IV Flush 8 ml 07/01/16 15:36 Picc Line Flush IVPUSH PRN PRN Protocol Vancomycin HCl 1,250 mg/ 250 mls @ 150 mls/hr 07/02/16 10:00 07/02/16 11:43 Dextrose IVPB 150 mls/hr DAILY [facility] Administration Protocol Ketoconazole 1 applic 06/29/16 13:00 07/02/16 10:34 Nizoral 2% Cream - TP Not Given DAILY [facility] Mupirocin 1 applic 07/02/16 22:00 Bactroban 2% Ointment - TP BID [facility] Pantoprazole Sodium 40 mg 06/29/16 10:00 07/02/16 10:33 Protonix - PO 40 mg DAILY [facility] Administration Paroxetine HCl 30 mg 06/29/16 13:00 07/02/16 10:33 Paxil - PO 30 mg DAILY [facility] Administration Quetiapine Fumarate 50 mg 06/29/16 22:00 07/01/16 23:36 Seroquel Xr - PO 50 mg HS [facility] Administration Silver Sulfadiazine 1 applic 06/29/16 13:30 07/02/16 10:34 Silvadene - TP Not Given BID [facility] ASSESSMENT/PLAN: This is a 75 year old female with PMH of Parkinsons disease, depression & GERD who presents to ED with right foot ulcer & cellulitis, failed PO abx. Right foot Ulcer with superimposed acute cellulitis and possible abscess -between 3rd and 4th metatarsals -continues improving with iv vanco -MRI=Osteo -wound culture =MRSA -ID, Vascular, podiatry on case -s/p podiatry debridement today A flexor tenotomy was performed, which achieved appropriate reduction of contracture deformity. -apply daily bactroban -IVF NS @50 -Tylenol pain management -blood cultures negative -in process of NH placement -Plan PICC line on tuesday before dc Parkinsons disease -carbidopa/levodopa -speech/swallow eval: required minced dysphagia diet with thin liquid Depression -seroquel -paxil FEN -NS@50 -repleted K -Hep, PPI -Regular diet Dispo: med galindo, plan DC to SNF Problem List - Problems (1) MRSA cellulitis Code(s): L03.90 - CELLULITIS, UNSPECIFIED B95.62 - METHICILLIN RESIS STAPH INFCT CAUSING DISEASES CLASSD ELSWHR (2) Right foot infection Code(s): L08.9 - LOCAL INFECTION OF THE SKIN AND SUBCUTANEOUS TISSUE, UNSP (3) Parkinson disease Code(s): G20 - PARKINSON'S DISEASE (4) Depressed Code(s): F32.9 - MAJOR DEPRESSIVE DISORDER, SINGLE EPISODE, UNSPECIFIED (5) GERD (gastroesophageal reflux disease) Code(s): K21.9 - GASTRO-ESOPHAGEAL REFLUX DISEASE WITHOUT ESOPHAGITIS (6) MRSA (methicillin resistant Staphylococcus aureus) Code(s): A49.02 - METHICILLIN RESIS STAPH INFECTION, UNSP SITE (7) Osteomyelitis of ankle or foot Code(s): M86.9 - OSTEOMYELITIS, UNSPECIFIED Visit type - Emergency Visit Emergency Visit: Yes ED Registration Date: 06/29/16 Care time: The patient presented to the Emergency Department on the above date and was hospitalized for further evaluation of their emergent condition. - New Patient This patient is new to me today: No - Critical Care Critical Care patient: No - Discharge Referral Referred to [facility] Med [facility] No
--- NOTE | 2016-07-02 14:41 | PN ---
Teaching Attending Note Name of Resident: Charleen Pena ATTENDING PHYSICIAN STATEMENT I saw and evaluated the patient. I reviewed the resident's note and discussed the case with the resident. I agree with the resident's findings and plan as documented. Comfortable with no acute distress. Pain and swelling in her R foot decreased Vital Signs Temperature 98.6 F 07/02/16 14:00 Pulse Rate 100 H 07/02/16 14:00 Respiratory Rate 20 07/02/16 14:00 Blood Pressure 129/50 07/02/16 14:00 O2 Sat by Pulse Oximetry (%) 98 07/01/16 21:00 CBCD WBC 6.1 K/mm3 (4.0-10.0) 07/02/16 06:40 RBC 3.94 M/mm3 (3.60-5.2) 07/02/16 06:40 Hgb 12.5 GM/dL (10.7-15.3) 07/02/16 06:40 Hct 34.4 % (32.4-45.2) 07/02/16 06:40 MCV 87.4 fl (80-96) 07/02/16 06:40 MCHC 36.4 g/dl (32.0-36.0) H 07/02/16 06:40 RDW 16.5 % (11.6-15.6) H 07/02/16 06:40 Plt Count 182 K/MM3 (134-434) D 07/02/16 06:40 MPV 8.0 fl (7.5-11.1) 07/02/16 06:40 CMP Sodium 144 mmol/L (136-145) 07/01/16 06:15 Potassium 3.6 mmol/L (3.5-5.1) 07/01/16 06:15 Chloride 106 mmol/L (98-107) 07/01/16 06:15 Carbon Dioxide 31 mmol/L (21-32) 07/01/16 06:15 Anion Gap 7 (8-16) L 07/01/16 06:15 BUN 12 mg/dL (7-18) 07/01/16 06:15 Creatinine 0.5 mg/dL (0.55-1.02) L 07/01/16 06:15 Creat Clearance w eGFR > 60 (>60) 06/29/16 08:00 Random Glucose 78 mg/dL (74-106) D 07/01/16 06:15 Calcium 7.9 mg/dL (8.5-10.1) L 07/01/16 06:15 Total Bilirubin 1.1 mg/dL (0.2-1.0) H 06/29/16 08:00 AST 14 U/L (15-37) L 06/29/16 08:00 ALT 20 U/L (12-78) D 06/29/16 08:00 Alkaline Phosphatase 53 U/L (45-117) 06/29/16 08:00 Total Protein 6.2 g/dl (6.4-8.2) L 06/29/16 08:00 Albumin 3.3 g/dl (3.4-5.0) L 06/29/16 08:00 Current Medications Generic Name Dose Route Start Last Admin Trade Name Freq PRN Reason Stop Dose Admin Acetaminophen 650 mg 06/29/16 05:28 07/02/16 03:27 Tylenol - PO 650 mg Q4H PRN Administration FEVER OR PAIN Carbidopa/Levodopa 1 combo 06/29/16 14:00 07/02/16 13:49 Sinemet *Cr* 25/100 - PO 1 combo 5XD [facility] Administration Heparin Sodium (Porcine) 5,000 unit 06/29/16 10:00 07/02/16 13:25 Heparin - SQ Not Given Q8H-IV [facility] IV Flush 8 ml 07/01/16 10:13 Picc Line Flush IVPUSH PRN PRN Protocol IV Flush 8 ml 07/01/16 15:36 Picc Line Flush IVPUSH PRN PRN Protocol Vancomycin HCl 1,250 mg/ 250 mls @ 150 mls/hr 07/02/16 10:00 07/02/16 11:43 Dextrose IVPB 150 mls/hr DAILY [facility] Administration Protocol Ketoconazole 1 applic 06/29/16 13:00 07/02/16 10:34 Nizoral 2% Cream - TP Not Given DAILY [facility] Mupirocin 1 applic 07/02/16 22:00 Bactroban 2% Ointment - TP BID [facility] Pantoprazole Sodium 40 mg 06/29/16 10:00 07/02/16 10:33 Protonix - PO 40 mg DAILY [facility] Administration Paroxetine HCl 30 mg 06/29/16 13:00 07/02/16 10:33 Paxil - PO 30 mg DAILY [facility] Administration Quetiapine Fumarate 50 mg 06/29/16 22:00 07/01/16 23:36 Seroquel Xr - PO 50 mg HS [facility] Administration Silver Sulfadiazine 1 applic 06/29/16 13:30 07/02/16 10:34 Silvadene - TP Not Given BID [facility] Home Medications Medication Instructions Recorded Cholecalciferol (Vitamin D3) 1,000 unit PO DAILY #0 tab.chew 12/10/13 [Vitamin D3] Carbidopa/Levodopa *Cr* 25/100 1 combo PO QID 01/27/16 [Sinemet *Cr* 25/100 -] Cyclosporine [Restasis] 1 each OU BID 01/27/16 Paroxetine HCl [Paxil] 30 mg PO DAILY 01/27/16 Vitamin B Complex Vit C No.4 150 mg PO DAILY 01/27/16 [Super B Complex] Vitamin E 400 unit PO DAILY 01/27/16 Quetiapine Fumarate [Quetiapine 25 mg PO HS 06/29/16 Fumarate ER] ASSESSMENT AND PLAN: 75 y/o lady with h/o GERD, dementia , PArkinson's , who presented with draining ulcer on R foot. # Acute cellulitis of right plantar aspect of the foot on IV antibiotic Vancomycin will get the trough in am since the culture positive for MRSA and MRI positive for Osteomyelitis ; Podiatry consult appreciated s/p I &D , s/p podiatry debridement today A flexor tenotomy was performed, which achieved appropriate reduction of contracture deformity. On bactroban in process of NH placement; PICC line on tuesday before discharge the patient to rehab. # Presented with Diarrhea: no further diarrhea noted # h/o Parkinson's :continue Sinemet # H/O depression : resume SSRI DVT px : Heparin sq
[2016-07-02] MEDS: MUPIROCIN 2% TOPICAL OINTMENT 22 GM TUBE TP SCH (23:49)
[2016-07-03] MEDS: HEPARIN NA (PORCINE) 5,000 UNITS/ML 1ML VIAL SQ SCH ×3 (02:38→17:47)
[2016-07-03] MEDS ORDERED: PT OWN MED DRAWER 7, Y5N ONE (06:27)
[2016-07-03 09:01] LABS: MCH 31.6 pg (25.7-33.7); MCHC 36.2 g/dl (32.0-36.0); MEAN CELL VOLUME 87.2 fl (80-96); MEAN PLT VOLUME 7.8 fl (7.5-11.1); PLATELET COUNT 184 K/MM3 (134-434); RDW 15.9 % (11.6-15.6)
[2016-07-03 09:36] LABS: C-REACTIVE PROTEIN 1.6 MG/DL (0.00-0.3); CALCIUM 8.4 mg/dL (8.5-10.1); COCKROFT - GAULT 79.424; CREATININE 0.5 mg/dL (0.55-1.02)
[2016-07-03] MEDS ORDERED: PARoxetine HCL 10 MG TABLET (FP) ONE (10:06)
[2016-07-03] MEDS: MUPIROCIN 2% TOPICAL OINTMENT 22 GM TUBE TP SCH ×2 (10:16→23:07)
[2016-07-03] MEDS: PANTOPRAZOLE 40 MG TABLET (FP) PO SCH (10:17)
[2016-07-03] MEDS: SILVER SULFADIAZINE 1% TOP CREAM 400 GM JAR TP SCH (10:18)
[2016-07-03] MEDS: PARoxetine HCL 30 MG TABLET PO SCH (10:18)
[2016-07-03] MEDS: KETOCONAZOLE 2% CREAM - 60GM TUBE TP SCH (10:18)
[2016-07-03] MEDS: ACETAMINOPHEN 325 MG TABLET (FP) PO PRN (10:30)
[2016-07-03] MEDS: VANCOMYCIN 1,250 MG in DEXTROSE 5%-WATER - 250 ML IVPB SCH (12:32)
--- NOTE | 2016-07-03 13:43 | PN ---
Progress Note, Physician History of Present Illness: podiatry noted noed bone could be felt on probing - Current Medication List Current Medications: Active Medications Acetaminophen (Tylenol -) 650 mg PO Q4H PRN PRN Reason: FEVER OR PAIN Last Admin: 07/03/16 10:30 Dose: 650 mg Carbidopa/Levodopa (Sinemet *Cr* 25/100 -) 1 combo PO 5XD [facility] Last Admin: 07/03/16 10:30 Dose: 1 combo Heparin Sodium (Porcine) (Heparin -) 5,000 unit SQ Q8H-IV [facility] Last Admin: 07/03/16 10:17 Dose: 5,000 unit IV Flush (Picc Line Flush) 8 ml IVPUSH PRN PRN PRN Reason: Protocol IV Flush (Picc Line Flush) 8 ml IVPUSH PRN PRN PRN Reason: Protocol Vancomycin HCl 1,500 mg/ (Dextrose) 500 mls @ 250 mls/hr IVPB ONCE [facility] PRN Reason: Protocol Ketoconazole (Nizoral 2% Cream -) 1 applic TP DAILY [facility] Last Admin: 07/03/16 10:18 Dose: Not Given Mupirocin (Bactroban 2% Ointment -) 1 applic TP BID [facility] Last Admin: 07/03/16 10:16 Dose: Not Given Pantoprazole Sodium (Protonix -) 40 mg PO DAILY [facility] Last Admin: 07/03/16 10:17 Dose: 40 mg Paroxetine HCl (Paxil -) 30 mg PO DAILY [facility] Last Admin: 07/03/16 10:18 Dose: 30 mg Quetiapine Fumarate (Seroquel Xr -) 50 mg PO HS [facility] Last Admin: 07/02/16 23:49 Dose: 50 mg Silver Sulfadiazine (Silvadene -) 1 applic TP BID [facility] Last Admin: 07/03/16 10:18 Dose: Not Given - Objective Vital Signs: Vital Signs Temperature 99.2 F 07/03/16 10:00 Pulse Rate 101 H 07/03/16 10:00 Respiratory Rate 18 07/03/16 10:00 Blood Pressure 133/56 07/03/16 10:00 O2 Sat by Pulse Oximetry (%) 98 07/03/16 09:00 Constitutional: Yes: No Distress, Calm Cardiovascular: Yes: Regular Rate and Rhythm Respiratory: Yes: Regular, CTA Bilaterally Gastrointestinal: Yes: Normal Bowel Sounds, Soft Musculoskeletal: Yes: Other (deformed foot rheumatoid) Integumentary: Yes: Erythema Wound/Incision: Yes: Dressing Dry and Intact Neurological: Yes: Alert, Oriented Psychiatric: Yes: Alert, Oriented Labs: CBC, BMP 07/03/16 07:30 07/03/16 07:30 INR, PTT INR 1.24 (0.82-1.09) H 06/29/16 01:07 Assessment/Plan cellulitis of the rt foot hammer toes osteo of rt foot plan mri result noted cx result noted vanco tough noted increased dose of vanco patient will need treatment for 4 to 6 weeks
--- NOTE | 2016-07-03 16:25 | PN ---
Physical Exam: SUBJECTIVE: Patient seen and examined Patient is comfortable with no acute distress. Patient is burkinan speaking lady. OBJECTIVE: Vital Signs Temperature 98.5 F 07/03/16 13:40 Pulse Rate 95 H 07/03/16 13:40 Respiratory Rate 17 07/03/16 13:40 Blood Pressure 119/54 07/03/16 13:40 O2 Sat by Pulse Oximetry (%) 98 07/03/16 09:00 GENERAL: Awake, alert, and fully oriented, in no acute distress. difficulty initiating speech due to her Parkinsonism HEENT: EOMI, PERRLA, moist membranes LUNGS: Breath sounds equal, clear to auscultation bilaterally. HEART: Regular rate and rhythm, normal S1 and S2 ABDOMEN: Soft, nontender, not distended, normoactive bowel sounds MUSCULOSKELETAL: No CVA tenderness. EXTREMITIES: 2+ pulses, warm, well-perfused. No calf tenderness. No peripheral edema. R foot less erythematous, less purulence between 3rd adn 4th toes. less edematous. NEUROLOGICAL: Cranial nerves II-XII grossly intact. Normal speech. rigid extremities PSYCHIATRIC: Cooperative. Good eye contact. Appropriate mood and affect. Laboratory Tests 07/03/16 07:30 Vancomycin Trough 6.277 Laboratory Results - last 24 hr 07/03/16 07/03/16 07:30 07:30 WBC 6.0 RBC 4.24 Hgb 13.4 Hct 37.0 MCV 87.2 MCHC 36.2 H RDW 15.9 H Plt Count 184 MPV 7.8 Sodium 142 Potassium 3.8 Chloride 107 Carbon Dioxide 27 Anion Gap 8 BUN 24 H D Creatinine 0.5 L Random Glucose 84 Calcium 8.4 L C-Reactive Protein 1.6 H D Vancomycin Trough 6.277 Active Medications Generic Name Dose Route Start Last Admin Trade Name Freq PRN Reason Stop Dose Admin Acetaminophen 650 mg 06/29/16 05:28 07/03/16 10:30 Tylenol - PO 650 mg Q4H PRN Administration FEVER OR PAIN Carbidopa/Levodopa 1 combo 06/29/16 14:00 07/03/16 13:58 Sinemet *Cr* 25/100 - PO 1 combo 5XD [facility] Administration Heparin Sodium (Porcine) 5,000 unit 06/29/16 10:00 07/03/16 10:17 Heparin - SQ 5,000 unit Q8H-IV [facility] Administration IV Flush 8 ml 04/13/17 10:13 Picc Line Flush IVPUSH PRN PRN Protocol IV Flush 8 ml 07/01/16 15:36 Picc Line Flush IVPUSH PRN PRN Protocol Vancomycin HCl 1,500 mg/ 500 mls @ 250 mls/hr 07/04/16 12:00 Dextrose IVPB DAILY@1200 [facility] Protocol Ketoconazole 1 applic 06/29/16 13:00 07/03/16 10:18 Nizoral 2% Cream - TP Not Given DAILY [facility] Mupirocin 1 applic 07/02/16 22:00 07/03/16 10:16 Bactroban 2% Ointment - TP Not Given BID [facility] Pantoprazole Sodium 40 mg 06/29/16 10:00 07/03/16 10:17 Protonix - PO 40 mg DAILY [facility] Administration Paroxetine HCl 30 mg 06/29/16 13:00 07/03/16 10:18 Paxil - PO 30 mg DAILY [facility] Administration Quetiapine Fumarate 50 mg 06/29/16 22:00 07/02/16 23:49 Seroquel Xr - PO 50 mg HS [facility] Administration Silver Sulfadiazine 1 applic 06/29/16 13:30 07/03/16 10:18 Silvadene - TP Not Given BID [facility] Laboratory Tests 07/03/16 07:30 Vancomycin Trough 6.277 ASSESSMENT/PLAN: 75 y/o lady with h/o GERD, dementia , PArkinson's , who presented with draining ulcer on R foot. # Acute cellulitis of right plantar aspect of the foot on IV antibiotic Vancomycin trough is low ,will increase the level , culture is positive for MRSA and MRI positive for Osteomyelitis ; Podiatry consult appreciated s/p I & D , s/p podiatry debridement today A flexor tenotomy was performed, which achieved appropriate reduction of contracture deformity. On bactroban in process of NH placement; PICC line on tuesday before discharge the patient to rehab. # Presented with Diarrhea: no further diarrhea noted # h/o Parkinson's :continue Sinemet # H/O depression : resume SSRI DVT px : Heparin sq Going to rehab in am Visit type - Emergency Visit Emergency Visit: Yes ED Registration Date: 06/29/16 Care time: The patient presented to the Emergency Department on the above date and was hospitalized for further evaluation of their emergent condition. - New Patient This patient is new to me today: No - Critical Care Critical Care patient: No
[2016-07-04] MEDS: HEPARIN NA (PORCINE) 5,000 UNITS/ML 1ML VIAL SQ SCH ×3 (02:10→18:20)
[2016-07-04] MEDS ORDERED: PARoxetine HCL 10 MG TABLET (FP) ONE (10:19)
[2016-07-04] MEDS ORDERED: PT OWN MED DRAWER 7, Y5N ONE ×4 (10:20→20:57)
[2016-07-04] MEDS: PANTOPRAZOLE 40 MG TABLET (FP) PO SCH (10:36)
[2016-07-04] MEDS: PARoxetine HCL 30 MG TABLET PO SCH (10:37)
--- NOTE | 2016-07-04 12:13 | PN ---
Progress Note (short form) - Note Progress Note: Patient is comfortable with no acute distress. Temperature 97.6 F 07/04/16 06:00 Pulse Rate 92 H 07/04/16 06:00 Respiratory Rate 20 07/04/16 06:00 Blood Pressure 135/67 07/04/16 06:00 O2 Sat by Pulse Oximetry (%) 97 07/03/16 21:00 GENERAL: Awake, alert, and fully oriented, in no acute distress. difficulty initiating speech due to her Parkinsonism HEENT: EOMI, PERRLA, moist membranes LUNGS: Breath sounds equal, clear to auscultation bilaterally. HEART: Regular rate and rhythm, normal S1 and S2 ABDOMEN: Soft, nontender, not distended, normoactive bowel sounds MUSCULOSKELETAL: No CVA tenderness. EXTREMITIES: 2+ pulses, warm, well-perfused. No calf tenderness. No peripheral edema. R foot less erythematous, less purulence between 3rd adn 4th toes. less edematous. NEUROLOGICAL: Cranial nerves II-XII grossly intact. Normal speech. rigid extremities PSYCHIATRIC: Cooperative. Good eye contact. Appropriate mood and affect. CBCD WBC 6.0 K/mm3 (4.0-10.0) 07/03/16 07:30 RBC 4.24 M/mm3 (3.60-5.2) 07/03/16 07:30 Hgb 13.4 GM/dL (10.7-15.3) 07/03/16 07:30 Hct 37.0 % (32.4-45.2) 07/03/16 07:30 MCV 87.2 fl (80-96) 07/03/16 07:30 MCHC 36.2 g/dl (32.0-36.0) H 07/03/16 07:30 RDW 15.9 % (11.6-15.6) H 07/03/16 07:30 Plt Count 184 K/MM3 (134-434) 07/03/16 07:30 MPV 7.8 fl (7.5-11.1) 07/03/16 07:30 CMP Sodium 142 mmol/L (136-145) 07/03/16 07:30 Potassium 3.8 mmol/L (3.5-5.1) 07/03/16 07:30 Chloride 107 mmol/L (98-107) 07/03/16 07:30 Carbon Dioxide 27 mmol/L (21-32) 07/03/16 07:30 Anion Gap 8 (8-16) 07/03/16 07:30 BUN 24 mg/dL (7-18) H D 07/03/16 07:30 Creatinine 0.5 mg/dL (0.55-1.02) L 07/03/16 07:30 Creat Clearance w eGFR > 60 (>60) 06/29/16 08:00 Random Glucose 84 mg/dL (74-106) 07/03/16 07:30 Calcium 8.4 mg/dL (8.5-10.1) L 07/03/16 07:30 Total Bilirubin 1.1 mg/dL (0.2-1.0) H 06/29/16 08:00 AST 14 U/L (15-37) L 06/29/16 08:00 ALT 20 U/L (12-78) D 06/29/16 08:00 Alkaline Phosphatase 53 U/L (45-117) 06/29/16 08:00 Total Protein 6.2 g/dl (6.4-8.2) L 06/29/16 08:00 Albumin 3.3 g/dl (3.4-5.0) L 06/29/16 08:00 Current Medications Generic Name Dose Route Start Last Admin Trade Name Jeremyq PRN Reason Stop Dose Admin Acetaminophen 650 mg 06/29/16 05:28 07/03/16 10:30 Tylenol - PO 650 mg Q4H PRN Administration FEVER OR PAIN Carbidopa/Levodopa 1 combo 06/29/16 14:00 07/04/16 10:36 Sinemet *Cr* 25/100 - PO 1 combo 5XD [facility] Administration Heparin Sodium (Porcine) 5,000 unit 06/29/16 10:00 07/04/16 10:36 Heparin - SQ 5,000 unit Q8H-IV [facility] Administration IV Flush 8 ml 07/01/16 10:13 Picc Line Flush IVPUSH PRN PRN Protocol IV Flush 8 ml 07/01/16 15:36 Picc Line Flush IVPUSH PRN PRN Protocol Vancomycin HCl 1,500 mg/ 500 mls @ 250 mls/hr 07/04/16 12:00 Dextrose IVPB DAILY@1200 [facility] Protocol Mupirocin 1 applic 07/02/16 22:00 07/03/16 23:07 Bactroban 2% Ointment - TP 1 applic BID [facility] Administration Pantoprazole Sodium 40 mg 06/29/16 10:00 07/04/16 10:36 Protonix - PO 40 mg DAILY [facility] Administration Paroxetine HCl 30 mg 06/29/16 13:00 07/04/16 10:37 Paxil - PO 30 mg DAILY [facility] Administration Quetiapine Fumarate 50 mg 06/29/16 22:00 07/03/16 22:23 Seroquel Xr - PO 50 mg HS [facility] Administration Home Medications Medication Instructions Recorded Cholecalciferol (Vitamin D3) 1,000 unit PO DAILY #0 tab.chew 12/10/13 [Vitamin D3] Carbidopa/Levodopa *Cr* 25/100 1 combo PO QID 01/27/16 [Sinemet *Cr* 25/100 -] Cyclosporine [Restasis] 1 each OU BID 01/27/16 Paroxetine HCl [Paxil] 30 mg PO DAILY 01/27/16 Vitamin B Complex Vit C No.4 150 mg PO DAILY 01/27/16 [Super B Complex] Vitamin E 400 unit PO DAILY 01/27/16 Quetiapine Fumarate [Quetiapine 25 mg PO HS 06/29/16 Fumarate ER] A/P: 5 y/o lady with h/o GERD, dementia , PArkinson's , who presented with draining ulcer on R foot. Patient has no fever or chills , no shortness of breath. # Acute cellulitis of right plantar aspect of the foot on IV antibiotic Vancomycin trough is low dose of Vancomycin was increased to 1500mg IV daily , culture is positive for MRSA and MRI positive for Osteomyelitis ; s/p podiatry debridement on 07/02/2016 s/p A flexor tenotomy was performed, which achieved appropriate reduction of contracture deformity. On bactroban in process of NH placement; PICC line on tuesday before discharge the patient to rehab. # Presented with Diarrhea: no further diarrhea noted # h/o Parkinson's :continue Sinemet # H/O depression : resume SSRI DVT px : Heparin sq Going to rehab in am Visit type - Emergency Visit Emergency Visit: Yes ED Registration Date: 06/29/16 Care time: The patient presented to the Emergency Department on the above date and was hospitalized for further evaluation of their emergent condition. - New Patient This patient is new to me today: No - Critical Care Critical Care patient: No
[2016-07-04] MEDS: VANCOMYCIN 1,500 MG in DEXTROSE 5%-WATER - 500 ML IVPB SCH (13:00)
[2016-07-04] MEDS: MUPIROCIN 2% TOPICAL OINTMENT 22 GM TUBE TP SCH ×2 (13:00)
--- NOTE | 2016-07-04 14:56 | PN ---
Progress Note, Physician History of Present Illness: stable no issues - Current Medication List Current Medications: Active Medications Acetaminophen (Tylenol -) 650 mg PO Q4H PRN PRN Reason: FEVER OR PAIN Last Admin: 07/03/16 10:30 Dose: 650 mg Carbidopa/Levodopa (Sinemet *Cr* 25/100 -) 1 combo PO 5XD [facility] Last Admin: 07/04/16 10:36 Dose: 1 combo Heparin Sodium (Porcine) (Heparin -) 5,000 unit SQ Q8H-IV [facility] Last Admin: 07/04/16 10:36 Dose: 5,000 unit IV Flush (Picc Line Flush) 8 ml IVPUSH PRN PRN PRN Reason: Protocol IV Flush (Picc Line Flush) 8 ml IVPUSH PRN PRN PRN Reason: Protocol Vancomycin HCl 1,500 mg/ (Dextrose) 500 mls @ 250 mls/hr IVPB DAILY@1200 [facility] PRN Reason: Protocol Last Admin: 07/04/16 13:00 Dose: 250 mls/hr Mupirocin (Bactroban 2% Ointment -) 1 applic TP BID [facility] Last Admin: 07/04/16 13:00 Dose: 1 applic Pantoprazole Sodium (Protonix -) 40 mg PO DAILY [facility] Last Admin: 07/04/16 10:36 Dose: 40 mg Paroxetine HCl (Paxil -) 30 mg PO DAILY [facility] Last Admin: 07/04/16 10:37 Dose: 30 mg Quetiapine Fumarate (Seroquel Xr -) 50 mg PO HS [facility] Last Admin: 07/03/16 22:23 Dose: 50 mg - Objective Vital Signs: Vital Signs Temperature 98.6 F 07/04/16 14:22 Pulse Rate 99 H 07/04/16 14:22 Respiratory Rate 19 07/04/16 14:22 Blood Pressure 133/68 07/04/16 14:22 O2 Sat by Pulse Oximetry (%) 97 07/03/16 21:00 Constitutional: Yes: No Distress, Calm Cardiovascular: Yes: Regular Rate and Rhythm Respiratory: Yes: Regular, CTA Bilaterally Gastrointestinal: Yes: Normal Bowel Sounds, Soft Musculoskeletal: Yes: Other Extremities: Yes: Other Wound/Incision: Yes: Dressing Dry and Intact Neurological: Yes: Alert, Oriented Psychiatric: Yes: Alert, Oriented Labs: CBC, BMP 07/03/16 07:30 07/03/16 07:30 INR, PTT INR 1.24 (0.82-1.09) H 06/29/16 01:07 Assessment/Plan cellulitis of the rt foot hammer toes osteo of rt foot plan continue current mgmt plan for final placement
[2016-07-04] MEDS: ACETAMINOPHEN 325 MG TABLET (FP) PO PRN (20:47)
[2016-07-05] MEDS: HEPARIN NA (PORCINE) 5,000 UNITS/ML 1ML VIAL SQ SCH ×3 (03:45→17:42)
[2016-07-05] MEDS: MUPIROCIN 2% TOPICAL OINTMENT 22 GM TUBE TP SCH ×2 (05:49→10:40)
[2016-07-05] MEDS ORDERED: PARoxetine HCL 10 MG TABLET (FP) ONE (10:38)
[2016-07-05] MEDS: PARoxetine HCL 30 MG TABLET PO SCH (10:41)
[2016-07-05] MEDS: PANTOPRAZOLE 40 MG TABLET (FP) PO SCH (10:41)
[2016-07-05] MEDS: VANCOMYCIN 1,500 MG in DEXTROSE 5%-WATER - 500 ML IVPB SCH (13:12)
--- NOTE | 2016-07-05 14:45 | DS ---
Physical Exam: SUBJECTIVE: Patient seen and examined Patient resting in bed NAD. Afebrile and hemodynamically stable. No acute events. pain and swelling in her R foot decreased. Denies f/c, chest pain, sob, diaphoresis, palpitations, dizziness, abd pain, dysuria. Reports having diarrhea. OBJECTIVE: Vital Signs Period Temp Pulse Resp BP Sys/Mcginnis Pulse Ox Last 24 Hr 97.8 F-100.2 F 88-105 18-20 106-132/51-62 92 PHYSICAL EXAM GENERAL: Awake, alert, and fully oriented, in no acute distress. difficulty initiating speech HEENT: EOMI, PERRLA, moist membranes LUNGS: Breath sounds equal, clear to auscultation bilaterally. HEART: Regular rate and rhythm, normal S1 and S2 ABDOMEN: Soft, nontender, not distended, normoactive bowel sounds MUSCULOSKELETAL: No CVA tenderness. UPPER EXTREMITIES: 2+ pulses, warm, well-perfused. No cyanosis. No clubbing. No peripheral edema. LOWER EXTREMITIES: 2+ pulses, warm, well-perfused. No calf tenderness. No peripheral edema. R foot less erythematous, less purulence between 3rd adn 4th toes. less edematous. NEUROLOGICAL: Cranial nerves II-XII grossly intact. Normal speech. rigid extremities PSYCHIATRIC: Cooperative. Good eye contact. Appropriate mood and affect. LABS HOSPITAL COURSE: Date of Admission:06/29/16 Patient is a 75 year old female with PMH of Parkinsons disease, depression & GERD who presents to ED with her 2 sons for right foot pain. Mother is a poor historian due to clinical condition, so majority of history is taken from son. Son states that mother complained for right foot pain a month ago and was sent to her PCP. A small ulcer was noted between her 4th and 5th right toes on the plantar aspect of her right foot. She failed PO Clindamycin at home. She was admitted for Right foot Ulcer with superimposed acute cellulitis, found to have osteomyelitis with MRSA. Was evaluated by podiatry, vascular and ID. Was treated with IV vanco. Podiatry performed debridement and flexor tenotomy. Patient was discharged to nursing [facility] with picc line to continue IV vanco for 4 -6 weeks. she IS to f/u with ID early this week for vanco levels and with vascular for hyperbaric O2 therapy at [facility] . She is to f/ u with podiatry within a week. Date of Discharge: 07/05/16 Minutes to complete discharge: 48 (na) Discharge Summary Reason For Visit: RIGHT FOOT INFECTION Current Active Problems Depressed (Acute) GERD (gastroesophageal reflux disease) (Acute) MRSA (methicillin resistant Staphylococcus aureus) (Acute) MRSA cellulitis (Acute) Osteomyelitis of ankle or foot (Acute) Parkinson disease (Acute) Right foot infection (Acute) Condition: Stable - Instructions Diet, Activity, Other Instructions: You were hospitalized due to infection of your right foot, that involves your bones. You were evaluated by podiatry. vascular surgery and infectious disease. your wound was cleaned out and your were treated with IV antibiotic. You need more IV antibiotic treatment (about 4-6 weeks) and will need to be in a long-term facility for intravenous antibiotic infusion. Please follow up with Dr Luo on Tuesday and Dr Walsh in 1 week. Follow up with Dr Kalia Ballard in 1 week for hyperbaric oxygen treatment to help healing of wound. Follow up with primary care in 2 weeks. return to hospital if symptoms worsen Referrals: Machelle Luo MD [Staff Physician] - John Barclay MD [Staff Physician] - Lucas Turner MD [Staff Physician] - Kalia Ballard MD [Staff Physician] - Disposition: [facility] - Home Medications Comprehensive Discharge Medication List: Ambulatory Orders Cholecalciferol (Vitamin D3) [Vitamin D3] 1,000 unit PO DAILY #0 tab.chew Carbidopa/Levodopa *Cr* 25/100 [Sinemet *Cr* 25/100 -] 1 combo PO QID 01/27/16 Cyclosporine [Restasis] 1 each OU BID 01/27/16 Paroxetine HCl [Paxil] 30 mg PO DAILY 01/27/16 Vitamin B Complex Vit C No.4 [Super B Complex] 150 mg PO DAILY 01/27/16 Vitamin E 400 unit PO DAILY 01/27/16 Quetiapine Fumarate [Quetiapine Fumarate ER] 25 mg PO HS 06/29/16 Mupirocin Ointment [Bactroban 2% Ointment -] 1 applic TP BID #3 applic 07/05/16 Picc Line Flush [Picc Line Flush -] 8 ml IVPUSH PRN PRN #35 ml 07/05/16 Silver Sulfadiazine 1% Top Cr [Silvadene -] 1 applic TP BID #4 jar 07/05/16 Vancomycin 1,500 mg IVPB DAILY@1200 #42 vial 07/05/16 Problem List - Problems (1) MRSA cellulitis Code(s): L03.90 - CELLULITIS, UNSPECIFIED B95.62 - METHICILLIN RESIS STAPH INFCT CAUSING DISEASES CLASSD ELSWHR (2) Right foot infection Code(s): L08.9 - LOCAL INFECTION OF THE SKIN AND SUBCUTANEOUS TISSUE, UNSP (3) Parkinson disease Code(s): G20 - PARKINSON'S DISEASE (4) Depressed Code(s): F32.9 - MAJOR DEPRESSIVE DISORDER, SINGLE EPISODE, UNSPECIFIED (5) GERD (gastroesophageal reflux disease) Code(s): K21.9 - GASTRO-ESOPHAGEAL REFLUX DISEASE WITHOUT ESOPHAGITIS (6) MRSA (methicillin resistant Staphylococcus aureus) Code(s): A49.02 - METHICILLIN RESIS STAPH INFECTION, UNSP SITE (7) Osteomyelitis of ankle or foot Code(s): M86.9 - OSTEOMYELITIS, UNSPECIFIED This patient is new to me today: No Emergency Visit: Yes ED Registration Date: 06/29/16 Care time: The patient presented to the Emergency Department on the above date and was hospitalized for further evaluation of their emergent condition. Critical Care patient: No - Discharge Referral Referred to [facility] Med P.C.: No
--- NOTE | 2016-07-05 15:00 | PN ---
Progress Note, [employer] - Note Progress Note: Selected Entries 07/04/16 07/04/16 07/04/16 10:42 14:22 17:50 Breakfast 50% Lunch 50% Supper 75% Temperature 07/05/16 07/05/16 07/05/16 02:05 06:00 10:00 Breakfast Lunch Supper Temperature 98.1 F 98.3 F 97.8 F 07/05/16 11:30 Breakfast 100% Lunch Supper Temperature Laboratory Tests 07/03/16 07:30 WBC 6.0 Tolerating diet well with dysphagia ground with 1-2 soft items. Appetite improving. For d/c to [facility].
[2016-07-05 15:35] VITALS: BP 124/48; PULSE 113; TEMP 98.8
--- NOTE | 2016-07-05 17:14 | PN ---
Teaching Attending Note Name of Resident: Jhony Walton ATTENDING PHYSICIAN STATEMENT I saw and evaluated the patient. I reviewed the resident's note and discussed the case with the resident. I agree with the resident's findings and plan as documented. Vital Signs Temperature 98.8 F 07/05/16 15:24 Pulse Rate 113 H 07/05/16 15:24 Respiratory Rate 20 07/05/16 15:24 Blood Pressure 124/48 07/05/16 15:24 O2 Sat by Pulse Oximetry (%) 94 L 07/05/16 09:00 CBCD WBC 6.0 K/mm3 (4.0-10.0) 07/03/16 07:30 RBC 4.24 M/mm3 (3.60-5.2) 07/03/16 07:30 Hgb 13.4 GM/dL (10.7-15.3) 07/03/16 07:30 Hct 37.0 % (32.4-45.2) 07/03/16 07:30 MCV 87.2 fl (80-96) 07/03/16 07:30 MCHC 36.2 g/dl (32.0-36.0) H 07/03/16 07:30 RDW 15.9 % (11.6-15.6) H 07/03/16 07:30 Plt Count 184 K/MM3 (134-434) 07/03/16 07:30 MPV 7.8 fl (7.5-11.1) 07/03/16 07:30 CMP Sodium 142 mmol/L (136-145) 07/03/16 07:30 Potassium 3.8 mmol/L (3.5-5.1) 07/03/16 07:30 Chloride 107 mmol/L (98-107) 07/03/16 07:30 Carbon Dioxide 27 mmol/L (21-32) 07/03/16 07:30 Anion Gap 8 (8-16) 07/03/16 07:30 BUN 24 mg/dL (7-18) H D 07/03/16 07:30 Creatinine 0.5 mg/dL (0.55-1.02) L 07/03/16 07:30 Creat Clearance w eGFR > 60 (>60) 06/29/16 08:00 Random Glucose 84 mg/dL (74-106) 07/03/16 07:30 Calcium 8.4 mg/dL (8.5-10.1) L 07/03/16 07:30 Total Bilirubin 1.1 mg/dL (0.2-1.0) H 06/29/16 08:00 AST 14 U/L (15-37) L 06/29/16 08:00 ALT 20 U/L (12-78) D 06/29/16 08:00 Alkaline Phosphatase 53 U/L (45-117) 06/29/16 08:00 Total Protein 6.2 g/dl (6.4-8.2) L 06/29/16 08:00 Albumin 3.3 g/dl (3.4-5.0) L 06/29/16 08:00 Current Medications Generic Name Dose Route Start Last Admin Trade Name Freq PRN Reason Stop Dose Admin Acetaminophen 650 mg 06/29/16 05:28 07/04/16 20:47 Tylenol - PO 650 mg Q4H PRN Administration FEVER OR PAIN Carbidopa/Levodopa 1 combo 06/29/16 14:00 07/05/16 14:43 Sinemet *Cr* 25/100 - PO Not Given 5XD [facility] Heparin Sodium (Porcine) 5,000 unit 06/29/16 10:00 07/05/16 10:40 Heparin - SQ 5,000 unit Q8H-IV [facility] Administration IV Flush 8 ml 07/01/16 10:13 Picc Line Flush IVPUSH PRN PRN Protocol IV Flush 8 ml 07/01/16 15:36 Picc Line Flush IVPUSH PRN PRN Protocol Vancomycin HCl 1,500 mg/ 500 mls @ 250 mls/hr 07/04/16 12:00 07/05/16 13:12 Dextrose IVPB 250 mls/hr DAILY@1200 [facility] Administration Protocol Mupirocin 1 applic 07/02/16 22:00 07/05/16 10:40 Bactroban 2% Ointment - TP 1 applic BID [facility] Administration Pantoprazole Sodium 40 mg 06/29/16 10:00 07/05/16 10:41 Protonix - PO 40 mg DAILY [facility] Administration Paroxetine HCl 30 mg 06/29/16 13:00 07/05/16 10:41 Paxil - PO 30 mg DAILY [facility] Administration Quetiapine Fumarate 50 mg 06/29/16 22:00 07/04/16 22:18 Seroquel Xr - PO 50 mg HS [facility] Administration Home Medications Medication Instructions Recorded Cholecalciferol (Vitamin D3) 1,000 unit PO DAILY #0 tab.chew 12/10/13 [Vitamin D3] Carbidopa/Levodopa *Cr* 25/100 1 combo PO QID 01/27/16 [Sinemet *Cr* 25/100 -] Cyclosporine [Restasis] 1 each OU BID 01/27/16 Paroxetine HCl [Paxil] 30 mg PO DAILY 01/27/16 Vitamin B Complex Vit C No.4 150 mg PO DAILY 01/27/16 [Super B Complex] Vitamin E 400 unit PO DAILY 01/27/16 Quetiapine Fumarate [Quetiapine 25 mg PO HS 06/29/16 Fumarate ER] Mupirocin Ointment [Bactroban 2% 1 applic TP BID #3 applic 07/05/16 Ointment -] Picc Line Flush [Picc Line Flush -] 8 ml IVPUSH PRN PRN #35 ml 07/05/16 Silver Sulfadiazine 1% Top Cr 1 applic TP BID #4 jar 07/05/16 [Silvadene -] Vancomycin 1,500 mg IVPB DAILY@1200 #42 vial 07/05/16 ASSESSMENT AND PLAN: 75 y/o lady with h/o GERD, dementia , PArkinson's , who presented with draining ulcer on R foot. Patient has no fever or chills , no shortness of breath. # Acute cellulitis of right plantar aspect of the foot on IV antibiotic Vancomycin trough is low dose of Vancomycin was increased to 1500mg IV daily , culture is positive for MRSA and MRI positive for Osteomyelitis ; s/p podiatry debridement on 07/02/2016 s/p A flexor tenotomy was performed, which achieved appropriate reduction of contracture deformity. On bactroban in process of NH placement; PICC line on tuesday before discharge the patient to rehab. # Presented with Diarrhea: no further diarrhea noted # h/o Parkinson's :continue Sinemet # H/O depression : resume SSRI DVT px : Heparin sq Going to rehab in am
[2016-07-05] MEDS ORDERED: PT OWN MED DRAWER 7, Y5N ONE (17:26)
--- NOTE | 2016-07-05 18:17 | PN ---
Progress Note, Physician History of Present Illness: stable no issues patient doing well - Current Medication List Current Medications: Active Medications Acetaminophen (Tylenol -) 650 mg PO Q4H PRN PRN Reason: FEVER OR PAIN Last Admin: 07/04/16 20:47 Dose: 650 mg Carbidopa/Levodopa (Sinemet *Cr* 25/100 -) 1 combo PO 5XD [facility] Last Admin: 07/05/16 17:42 Dose: 1 combo Heparin Sodium (Porcine) (Heparin -) 5,000 unit SQ Q8H-IV [facility] Last Admin: 07/05/16 17:42 Dose: 5,000 unit IV Flush (Picc Line Flush) 8 ml IVPUSH PRN PRN PRN Reason: Protocol IV Flush (Picc Line Flush) 8 ml IVPUSH PRN PRN PRN Reason: Protocol Vancomycin HCl 1,500 mg/ (Dextrose) 500 mls @ 250 mls/hr IVPB DAILY@1200 [facility] PRN Reason: Protocol Last Admin: 07/05/16 13:12 Dose: 250 mls/hr Mupirocin (Bactroban 2% Ointment -) 1 applic TP BID [facility] Last Admin: 07/05/16 10:40 Dose: 1 applic Pantoprazole Sodium (Protonix -) 40 mg PO DAILY [facility] Last Admin: 07/05/16 10:41 Dose: 40 mg Paroxetine HCl (Paxil -) 30 mg PO DAILY [facility] Last Admin: 07/05/16 10:41 Dose: 30 mg Quetiapine Fumarate (Seroquel Xr -) 50 mg PO HS [facility] Last Admin: 07/04/16 22:18 Dose: 50 mg - Objective Vital Signs: Vital Signs Temperature 98.8 F 07/05/16 15:24 Pulse Rate 113 H 07/05/16 15:24 Respiratory Rate 20 07/05/16 15:24 Blood Pressure 124/48 07/05/16 15:24 O2 Sat by Pulse Oximetry (%) 94 L 07/05/16 09:00 Constitutional: Yes: No Distress, Calm HENT: Yes: Atraumatic Cardiovascular: Yes: Regular Rate and Rhythm Respiratory: Yes: Regular, CTA Bilaterally Gastrointestinal: Yes: Normal Bowel Sounds, Soft Musculoskeletal: Yes: WNL Extremities: Yes: Erythema Psychiatric: Yes: Alert, Oriented Labs: CBC, BMP 07/03/16 07:30 07/03/16 07:30 INR, PTT INR 1.24 (0.82-1.09) H 06/29/16 01:07 Assessment/Plan cellulitis of the rt foot hammer toes osteo of rt foot plan continue current mgmt plan for final placement 4 more weeks of abx vanco trough needs to be followed wound care
== END 2016-07-05 18:55 | DRG 580 ==
LOC: JER 23:22 → JERBED 06-29 03:37 → J5S 06-29 12:43
PROVIDERS: ADMIT Internal Medicine; ATTEND Internal Medicine
PROC: 0KBV0ZZ Excision of Right Foot Muscle, Open Approach (ICD-10-PCS; principal; 2016-07-02)
PROC: 0LNV0ZZ Release Right Foot Tendon, Open Approach (ICD-10-PCS; 2016-07-02)
PROC: 02HV33Z Insertion of Infusion Device into Superior Vena Cava, Percutaneous Approach (ICD-10-PCS; 2016-07-05)
PROC: B5181ZA Fluoroscopy of Superior Vena Cava using Low Osmolar Contrast, Guidance (ICD-10-PCS; 2016-07-05)
DX: L03.115 Cellulitis of right lower limb (principal); M86.9 Osteomyelitis, unspecified; K52.1 Toxic gastroenteritis and colitis; L97.519 Non-pressure chronic ulcer of other part of right foot with unspecified severity; B95.62 Methicillin resistant Staphylococcus aureus infection as the cause of diseases classified elsewhere; F32.9 Major depressive disorder, single episode, unspecified; G20 Parkinson's disease; K21.9 Gastro-esophageal reflux disease without esophagitis; Z89.421 Acquired absence of other right toe(s); E87.6 Hypokalemia; T36.0X5A Adverse effect of penicillins, initial encounter; M20.42 Other hammer toe(s) (acquired), left foot; M20.41 Other hammer toe(s) (acquired), right foot; L08.9 Local infection of the skin and subcutaneous tissue, unspecified
CPT/HCPCS: 36415; 36569; 71010-TC; 73630-TC-RT; 73720-TC; 77001-TC; 80048; 80053; 81003; 81015; 82272; 82438; 83605; 83735; 84100; 84302; 84999; 85025; 85027; 85610; 85651; 86140; 87040; 87045; 87046; 87070; 87086; 87186; 87205; 87324; 87449; 90670; 93005; 93010; 99282-25; A9576; C1751; G0008; G0009; G0480; J1644; Q2037

== ENCOUNTER 2016-10-23 16:45 | Emergency (ER) | payer OTHER ==
[2016-10-23 16:55] VITALS: BP 143/61; PULSE 100; TEMP 98.4; BMI 25.0
--- NOTE | 2016-10-23 20:11 | PDOC ---
History of Present Illness - General Chief Complaint: Wound Infection Stated Complaint: WOUND INFECTION Time Seen by Provider: 10/23/16 18:55 - History of Present Illness Initial Comments: 10/23/16 20:43 Patient is a 76 year old female with a significant past medical history of Parkinson's, depression and GERD who presents to the ED accompanied by son with ulcer on her right buttock for 2 months. Her son stated he noted green discharge coming from the ulcer today prompting him to bring her in. Patient denies chest pain, SOB, abdominal pain, fever, chills, nausea, vomiting, diarrhea. Patients son states she has a home health aid that comes 7 days a week, for 8 hours on weekdays and 5 hours on weekends and that they do some wound care. PCP: Dr. Turner Past History - Past Medical History Allergies/Adverse Reactions: Allergies Allergy/AdvReac Type Severity Reaction Status Date / Time No Known Drug Allergies Allergy Verified 10/23/16 16:51 Home Medications: Ambulatory Orders Cholecalciferol (Vitamin D3) [Vitamin D3] 1,000 unit PO DAILY #0 tab.chew Paroxetine HCl [Paxil] 30 mg PO DAILY 01/27/16 Vitamin B Complex Vit C No.4 [Super B Complex] 150 mg PO DAILY 01/27/16 Vitamin E 400 unit PO DAILY 01/27/16 Carbidopa/Levodopa [Carbidopa-Levodopa 25-250 Tab] 1 tab PO TID 10/06/16 Clindamycin [Cleocin -] 300 mg PO Q6HPO #28 capsule 10/23/16 Risperidone 1 mg PO HS 10/23/16 Cardiac Disorders: No CVA: No CHF: No Dementia: Yes (PARKINSONS) Diabetes: No GI Disorders: No Disorders: No HTN: No Hypercholesterolemia: No Liver Disease: No Psychiatric Problems: Yes (DEPRESSION) Seizures: No Thyroid Disease: No - Surgical History Abdominal Surgery: No Appendectomy: No Cardiac Surgery: No Cholecystectomy: No Lung Surgery: No Neurologic Surgery: No Orthopedic Surgery: Yes (bilateral knee surgery) - Psycho/Social/Smoking Cessation Hx Anxiety: No Suicidal Ideation: No Smoking History: Never smoked Have you smoked in the past 12 months: No Hx Alcohol Use: No Drug/Substance Use Hx: No Substance Use Type: None Hx Substance Use Treatment: No Review of Systems - Review of Systems Comments:: 10/23/16 20:44 ADULT ROS GENERAL/CONSTITUTIONAL: No fever or chills. No weakness. HEAD, EYES, EARS, NOSE AND THROAT: No change in vision. No ear pain or discharge. No sore throat. CARDIOVASCULAR: No chest pain or shortness of breath. RESPIRATORY: No cough, wheezing, or hemoptysis. GASTROINTESTINAL: No nausea, vomiting, diarrhea or constipation. GENITOURINARY: No dysuria, frequency, or change in urination. MUSCULOSKELETAL: No joint or muscle swelling or pain. No neck or back pain. SKIN: + ulcer on right buttock NEUROLOGIC: No headache, vertigo, loss of consciousness, or change in strength/ sensation. ENDOCRINE: No increased thirst. No abnormal weight change. HEMATOLOGIC/LYMPHATIC: No anemia, easy bleeding, or history of blood clots. ALLERGIC/IMMUNOLOGIC: No hives or skin allergy. *Physical Exam - Vital Signs Last Vital Signs Temp Pulse Resp BP Pulse Ox 98.4 F 100 H 19 143/61 98 10/23/16 16:51 10/23/16 16:51 10/23/16 16:51 10/23/16 16:51 10/23/16 16:51 10/23/16 20:45 ADULT EXAM GENERAL: Awake, alert, and fully oriented, in no acute distress HEAD: No signs of trauma EYES: PERRLA, EOMI, sclera anicteric, conjunctiva clear ENT: Auricles normal inspection, hearing grossly normal, nares patent, oropharynx clear without exudates. Moist mucosa NECK: Normal ROM, supple, no lymphadenopathy, JVD, or masses LUNGS: Breath sounds equal, clear to auscultation bilaterally. No wheezes, and no crackles HEART: Regular rate and rhythm, normal S1 and S2, no murmurs, rubs or gallops ABDOMEN: Soft, nontender, normoactive bowel sounds. No guarding, no rebound. No masses EXTREMITIES: Normal range of motion, no edema. No clubbing or cyanosis. No cords, erythema, or tenderness NEUROLOGICAL: Cranial nerves II through XII grossly intact. Normal speech, normal gait SKIN: Right buttock has mild erythema and a 1 cm oval dry shaped ulcer w/ no drainage, no bleeding, no induration, no fluctuance. Medical Decision Making - Medical Decision Making 10/23/16 20:01 76yo F hx parkinsons disease, dementia, and osteo of the foot brought in by son for wound x2 months to the R inferior buttock. On exam, 1 cm oval shaped, dry, non draining superficial ulcer with no fluctuance, induration or warmth consistent with a superficial pressure ulcer. Also on differential is cellulitis but unlikely as pt has not had any fevers, and wound with no fluctuance, induration, or warmth. Ulcer is very superficial and thus unlikely to be a deep space infection especially in absence of infectious symptoms . -DC to wound clinic -PMD fu within 2-3 days -clindamycin PO -advised son to have WARRANTY ADMINISTRATOR shift pt Q2hrs 10/23/16 20:30 *DC/Admit/Observation/Transfer Diagnosis at time of Disposition: Pressure ulcer Qualifiers: Pressure ulcer location: buttock Pressure ulcer stage: stage 2 Laterality: right Qualified Code(s): L89.312 - Pressure ulcer of right buttock, stage 2 - Discharge Dispostion Disposition: HOME Admit: No - Referrals Referrals: Lucas Turner MD [Primary Care Provider] - - Patient Instructions Printed Discharge Instructions: How to Prevent Pressure Ulcers Additional Instructions: Please follow up with Dr. Kalia Ballard at the wound clinic within 3-4 days Call [phone] for an appointment Follow up with your primary doctor within 2-3 days Please have your mom turned every two hours in bed as this will help the healing of her wound. - Post Discharge Activity - Attestations Physician Attestion: 10/23/16 20:33 I, Dr. Marino Epps MD, attest that this document has been prepared under my direction and personally reviewed by me in its entirety. I further attest, that it accurately reflects all work, treatment, procedures and medical decision -making performed by me.
[2016-10-23] MEDS ORDERED: CLINDAMYCIN HCL 150 MG CAPSULE (FP) PO ONE (20:47)
[2016-10-23] MEDS ORDERED: CLINDAMYCIN HCL 150 MG CAPSULE (FP) ONE (21:10)
== END 2016-10-23 21:26 | disposition home or self-care (01) ==
LOC: JER 16:45
DX: L89.312 Pressure ulcer of right buttock, stage 2 (principal); G20 Parkinson's disease; F32.9 Major depressive disorder, single episode, unspecified; K21.9 Gastro-esophageal reflux disease without esophagitis
CPT/HCPCS: 99282-25

== ENCOUNTER 2017-10-30 16:13 | Observation (INO) | payer OTHER ==
--- NOTE | 2017-10-30 16:52 | PDOC ---
History of Present Illness <Esperanza Samaniego - Last Filed: 10/30/17 20:12> - General History Source: Patient, Family Exam Limitations: Language Barrier - History of Present Illness Initial Comments: 10/30/17 18:14 Ms. Quiroga is a 77 yo F with a hx of parkinsons and depression who presents to the emergency department s/p choking event while eating at home at approximately 4 pm. Per the son, the patient was eating grilled tortillas that were cut into bite sizes when she began choking. She turned purple and the heimlich maneuver which successfully produced the food item. Per the son, she has had progressively worsened chewing during the past few weeks. She has become increasingly fatigued and lethargic. He states she is still at baseline which is limited movement and ability to recognize individuals and speak, but now her speech is softened dramatically. Per the patient, she has throat, ear pain and eye pain. Denies the following: fever, chest pain, SOB, dysuria, hematuria, N/V/diarrhea. She had bronchitis 2 weeks ago and was seen in our department. 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 Meds: Allergies:None Social hx: no smoking, no alcohol, no drugs. 10/30/17 19:01 10/30/17 19:04 10/30/17 19:11 <Mark Conteh - Last Filed: 11/01/17 12:28> - General Chief Complaint: Choking Sensation Stated Complaint: CHOKING Time Seen by Provider: 10/30/17 16:26 Past History <Esperanza Samaniego - Last Filed: 10/30/17 20:12> - Past Medical History Cardiac Disorders: No CVA: No COPD: No CHF: No Dementia: Yes (PARKINSONS) Diabetes: No GI Disorders: No Disorders: No HTN: No Hypercholesterolemia: No Liver Disease: No Psychiatric Problems: Yes (DEPRESSION) Seizures: No Thyroid Disease: No - Surgical History Abdominal Surgery: No Appendectomy: No Cardiac Surgery: No Cholecystectomy: No Lung Surgery: No Neurologic Surgery: No Orthopedic Surgery: Yes (bilateral knee surgery) - Suicide/Smoking/Psychosocial Hx Smoking History: Never smoked Have you smoked in the past 12 months: No Information on smoking cessation initiated: No Hx Alcohol Use: No Drug/Substance Use Hx: No Substance Use Type: None Hx Substance Use Treatment: No <Mark Conteh Last Filed: 11/01/17 12:28> - Past Medical History Allergies/Adverse Reactions: Allergies Allergy/AdvReac Type Severity Reaction Status Date / Time No Known Drug Allergies Allergy Verified 10/19/17 12:06 Home Medications: Ambulatory Orders Cholecalciferol (Vitamin D3) [Vitamin D3] 1,000 unit PO DAILY #0 tab.chew Paroxetine HCl [Paxil] 30 mg PO DAILY 01/27/16 Vitamin B Complex Vit C No.4 [Super B Complex] 150 mg PO DAILY 01/27/16 Vitamin E 400 unit PO DAILY 01/27/16 Carbidopa/Levodopa [Carbidopa-Levodopa 25-250 Tab] 1 tab PO Q6H 10/06/16 Risperidone 1 mg PO HS 10/23/16 Amantadine HCl [Amantadine] 100 mg PO DAILY 10/31/17 Cyclosporine [Restasis] 1 drop OU DAILY 10/31/17 Cyclosporine [Restasis] 1 drop OU DAILY 10/31/17 Mirtazapine 15 mg PO DAILY 10/31/17 Omeprazole 40 mg PO DAILY 10/31/17 Quetiapine Fumarate [Seroquel -] 50 mg PO DAILY 10/31/17 Vortioxetine Hydrobromide [Trintellix] 20 mg PO DAILY 10/31/17 Review of Systems - Review of Systems Able to Perform ROS?: Yes Constitutional: No: Chills, Diaphoresis, Fever HEENTM: Yes: Eye Pain, Ear Pain, Throat Pain. No: Recent change in vision Respiratory: No: Cough, Shortness of Breath, Hemoptysis Cardiac (ROS): No: Chest Pain, Palpitations, Syncope ABD/GI: No: Constipated, Diarrhea, Nausea, Rectal Bleeding, Vomiting, Abdominal cramping, Tarry Stools : No: Burning, Dysuria, Hematuria Musculoskeletal: No: Back Pain Integumentary: No: Rash Neurological: No: Headache, Numbness Psychiatric: No: Stressors Endocrine: No: Excessive Sweating Hematologic/Lymphatic: No: Anemia <Mark Conteh - Last Filed: 11/01/17 12:28> *Physical Exam - Vital Signs Last Vital Signs Temp Pulse Resp BP Pulse Ox 97.5 F L 94 H 16 141/60 100 10/30/17 16:17 10/30/17 16:17 10/30/17 16:17 10/30/17 16:17 10/30/17 16:48 <Esperanza Samaniego - Last Filed: 10/30/17 20:12> - Vital Signs Last Vital Signs Temp Pulse Resp BP Pulse Ox 97.5 F L 94 H 16 141/60 100 10/30/17 16:17 10/30/17 16:17 10/30/17 16:17 10/30/17 16:17 10/30/17 16:48 - Physical Exam General Appearance: Yes: Appropriately Dressed, Thin HEENT: positive: EOMI, JO, Normal ENT Inspection, Other (soft voice) Respiratory/Chest: positive: Lungs Clear, Normal Breath Sounds Cardiovascular: positive: Regular Rhythm, Regular Rate, S1, S2 Gastrointestinal/Abdominal: positive: Normal Bowel Sounds, Tender (mildly diffuse tenderness) Musculoskeletal: positive: Other (contractions at the feet. thin) Extremity: positive: Normal Capillary Refill Integumentary: positive: Normal Color, Dry, Warm Neurologic: positive: Alert <Mark Conteh - Last Filed: 11/01/17 12:28> ED Treatment Course - LABORATORY CBC & Chemistry Diagram: 10/30/17 17:56 10/30/17 17:56 - ADDITIONAL ORDERS Additional order review: Laboratory Results 10/30/17 10/30/17 18:40 17:56 Sodium 145 Potassium 3.6 Chloride 109 H Carbon Dioxide 28 Anion Gap 8 BUN 18 Creatinine 0.6 Creat Clearance w eGFR > 60 Random Glucose 99 Calcium 8.6 Total Bilirubin 0.8 AST 19 ALT 30 Alkaline Phosphatase 79 Creatine Kinase 53 Troponin I 0.03 Total Protein 6.5 Albumin 3.8 Urine Color Colorless Urine Appearance Clear Urine pH 6.0 Ur Specific [place] 1.002 Urine Protein Negative Urine Glucose (UA) Negative Urine Ketones Negative Urine Blood Negative Urine Nitrite Negative Urine Bilirubin Negative Urine Urobilinogen Negative Ur Leukocyte Esterase Negative 10/30/17 17:56 RBC 3.87 MCV 89.8 MCHC 36.0 RDW 15.5 MPV 8.3 D Neutrophils % 82.5 Lymphocytes % 12.4 D Monocytes % 4.2 Eosinophils % 0.7 Basophils % 0.2 <Esperanza Samaniego - Last Filed: 10/30/17 20:12> - LABORATORY CBC & Chemistry Diagram: 11/01/17 06:15 11/01/17 06:15 <Mark Conteh - Last Filed: 11/01/17 12:28> Medical Decision Making - Medical Decision Making 10/30/17 19:36 Pt with hx of parkinsons and depression with new onset of dysphagia presenting with increased weakness and lethargy. Initial vitals: Initial Vital Signs Temp Pulse Resp BP Pulse Ox 97.5 F L 94 H 16 141/60 100 10/30/17 16:17 10/30/17 16:17 10/30/17 16:17 10/30/17 16:17 10/30/17 16:17 Work up: Laboratory Results - last 24 hr 10/30/17 10/30/17 10/30/17 17:56 17:56 18:40 WBC 5.9 RBC 3.87 Hgb 12.5 Hct 34.7 MCV 89.8 MCH 32.3 MCHC 36.0 RDW 15.5 Plt Count 136 MPV 8.3 D Absolute Neuts (auto) 4.8 Neutrophils % 82.5 Lymphocytes % 12.4 D Monocytes % 4.2 Eosinophils % 0.7 Basophils % 0.2 Nucleated RBC % 0 Sodium 145 Potassium 3.6 Chloride 109 H Carbon Dioxide 28 Anion Gap 8 BUN 18 Creatinine 0.6 Creat Clearance w eGFR > 60 Random Glucose 99 Calcium 8.6 Total Bilirubin 0.8 AST 19 ALT 30 Alkaline Phosphatase 79 Creatine Kinase 53 Troponin I 0.03 Total Protein 6.5 Albumin 3.8 Urine Color Colorless Urine Appearance Clear Urine pH 6.0 Ur Specific [place] 1.002 Urine Protein Negative Urine Glucose (UA) Negative Urine Ketones Negative Urine Blood Negative Urine Nitrite Negative Urine Bilirubin Negative Urine Urobilinogen Negative Ur Leukocyte Esterase Negative Labs wnl. CXR shows no acute process. Disposition is to admit to observation for dysphagia. consult placed for speech and swallow. Signed out to Dr. Samaniego 10/30/17 19:55 11/01/17 12:28 <Mark Conteh - Last Filed: 11/01/17 12:28> *DC/Admit/Observation/Transfer - Discharge Dispostion Decision to Admit order: Yes <Esperanza Samaniego - Last Filed: 10/30/17 20:12> <Mark Conteh - Last Filed: 11/01/17 12:28> Diagnosis at time of Disposition: Dysphagia - Discharge Dispostion Condition at time of disposition: Stable
[2017-10-30 18:02] LABS: BASO % 0.2 % (0-2.0); EOS % 0.7 % (0-4.5); HEMATOCRIT 34.7 % (32.4-45.2); HEMOGLOBIN 12.5 GM/dL (10.7-15.3); LYMPH % 12.4 % (8-40); MCH 32.3 pg (25.7-33.7); MEAN CELL VOLUME 89.8 fl (80-96); MEAN PLT VOLUME 8.3 fl (7.5-11.1); MONO % 4.2 % (3.8-10.2); NEUT % 82.5 % (42.8-82.8); PLATELET COUNT 136 K/MM3 (134-434); RBC 3.87 M/mm3 (3.60-5.2); RDW 15.5 % (11.6-15.6); WHITE BLOOD COUNT 5.9 K/mm3 (4.0-10.0)
[2017-10-30 18:31] LABS: ALBUMIN 3.8 g/dl (3.4-5.0); ANION GAP 8 (8-16); BILIRUBIN,TOTAL 0.8 mg/dL (0.2-1.0); BLOOD UREA NITROGEN 18 mg/dL (7-18); CALCIUM 8.6 mg/dL (8.5-10.1); CHLORIDE 109 mmol/L (98-107); CO2 28 mmol/L (21-32); CREATININE 0.6 mg/dL (0.55-1.02); GLUCOSE,RANDOM 99 mg/dL (74-106); POTASSIUM 3.6 mmol/L (3.5-5.1); SGOT/AST 19 U/L (15-37); SGPT/ALT 30 U/L (12-78); SODIUM 145 mmol/L (136-145); TOT PROT 6.5 g/dl (6.4-8.2)
[2017-10-30 18:34] LABS: ALK PHOS 79 U/L (45-117)
[2017-10-30 19:05] LABS: URINE APPEARANCE CLEAR; URINE BILIRUBIN NEGATIVE (<2.0 mg/dL); URINE COLOR COLORLESS; URINE GLUCOSE (UA) NEGATIVE (NEGATIVE); URINE KETONE NEGATIVE (NEGATIVE); URINE LEUK ESTERASE NEGATIVE (NEGATIVE); URINE NITRITE NEGATIVE (NEGATIVE); URINE PROTEIN NEGATIVE (NEGATIVE); URINE UROBILINOGEN NEGATIVE mg/dL (0.2-1.0)
--- NOTE | 2017-10-30 20:09 | PDOC ---
Attending Attestation - Resident Resident Name: Mark Conteh - ED Attending Attestation I have performed the following: I have examined & evaluated the patient, The case was reviewed & discussed with the resident, I agree w/resident's findings & plan, Exceptions are as noted - HPI HPI: 10/30/17 20:05 The patient is a 77-year-old female with a past medical history of Parkinsons disease, depression and GERD presents to the emergency department s/p a choking episode at 4:00 pm today. As per the son, the patient was eating a grilled tortilla piece when she began choking. The son reports that the pt turned "purple", and the son performed the Heimlich maneuver, successfully clearing her airway. Denies chest pain or shortness of breath. Denies abdominal pain. Denies dysuria , hematuria, frequency or urgency to urinate. Allergies: NKDA Surgical history: B/l knee surgery and 2nd toe on the R. foot amputated due to deformity Social history: None reported. PCP: Dr. Turner. - Physicial Exam PE: 10/30/17 20:07 "GENERAL: Awake, alert, and fully oriented, in no acute distress. HEAD: No signs of trauma EYES: PERRLA, EOMI, sclera anicteric, conjunctiva clear ENT: Auricles normal inspection, hearing grossly normal, nares patent, oropharynx clear without exudates. Moist mucosa NECK: Nontender, no stepoffs, Normal ROM, supple, no lymphadenopathy, JVD, or masses LUNGS: Breath sounds equal, clear to auscultation bilaterally. No wheezes, and no crackles HEART: Regular rate and rhythm, normal S1 and S2, no murmurs, rubs or gallops ABDOMEN: Soft, nontender, normoactive bowel sounds. No guarding, no rebound. No masses EXTREMITIES: Normal range of motion, no edema. No clubbing or cyanosis. No cords, erythema, or tenderness NEUROLOGICAL: Cranial nerves II through XII intact. 5/5 strength and sensation in all extremities, Normal speech, normal gait, normal cerebellar function SKIN: Warm, Dry, normal turgor, no rashes or lesions noted." - Medical Decision Making 10/30/17 20:07 77 F with choking episode today. Pt with progressively worsening weakness per family members. Will evaluate for infectious process and cardiac event as cause of weakness. However, suspect that underlying etiology is worsening of pt's parkinson's disease. Pt with no new neuro deficits on exam. - Labs, UA, CXR - CT head - Speech & swallow evaluation
[2017-10-30] MEDS ORDERED: SODIUM CHLORIDE 1,000 ML IV SCH (20:15)
[2017-10-30] MEDS ORDERED: HEPARIN NA (PORCINE) 5,000 UNITS/ML 1ML VIAL SQ SCH (20:15)
--- NOTE | 2017-10-30 20:37 | PN ---
Teaching Attending Note Name of Resident: Jett Lilly ATTENDING PHYSICIAN STATEMENT I saw and evaluated the patient. I reviewed the resident's note and discussed the case with the resident. I agree with the resident's findings and plan as documented. SUBJECTIVE: Patient is a 77 year old woman with history of parkinson's, remote MRSA infection of toe, bilateral knee replacement and depression who presents to the ER after a choking event while eating at home at approximately 4 pm. Per the son , the patient was eating grilled tortillas that were cut into bite sizes when she began choking. She turned purple and the Heimlich maneuver successfully produced the food item. Per the son, she has had progressively worsened chewing during the past few weeks. She has become increasingly fatigued and lethargic. He states she is still at baseline which is limited movement and ability to recognize individuals and speak, but now her speech is softened dramatically. Per the patient, she has throat, ear pain and eye pain. Denies chest pain, SOB, dysuria, N/V/diarrhea. She had bronchitis 2 weeks ago and was seen in the ER. OBJECTIVE: Very soft speech. Alert. In no acute distress Vital Signs Period Temp Pulse Resp BP Sys/Mcginnis Pulse Ox Last 24 Hr 97.5 F 94 16 141/60 100-100 HEENT: No Jaundice, eye redness or discharge, PERRLA, no thrush; Normocephalic, atraumatic. External ears are normal and hearing is grossly intact. No nasal discharge. Neck: Supple, nontender. No palpable adenopathy or thyromegaly. No JVD Chest: Good effort. Clear to auscultation and percussion. Heart: Regular. No S3, rub or murmur Abdomen: Not distended, soft, nontender and no HSM. No rebound or guarding. Normoactive bowel sounds. Ext: Peripheral pulses intact. No leg edema. Amputated right 5th toe. Skin: Warm and dry. No petechiae, rash or ecchymosis. Neuro: Alert. Oriented person and place. Sensation grossly intact in all four extremities and DTR are symmetric. Current Medications Generic Name Dose Route Start Last Admin Trade Name Freq PRN Reason Stop Dose Admin Heparin Sodium (Porcine) 5,000 unit 10/30/17 20:15 Heparin - SQ Q8H-IV KOREY Sodium Chloride 1,000 mls @ 75 mls/hr 10/30/17 20:15 Normal Saline - IV ASDIR KOREY Home Medications Medication Instructions Recorded Cholecalciferol (Vitamin D3) 1,000 unit PO DAILY #0 tab.chew 12/10/13 [Vitamin D3] Paroxetine HCl [Paxil] 30 mg PO DAILY 01/27/16 Vitamin B Complex Vit C No.4 150 mg PO DAILY 01/27/16 [Super B Complex] Vitamin E 400 unit PO DAILY 01/27/16 Carbidopa/Levodopa 1 tab PO TID 10/06/16 [Carbidopa-Levodopa 25-250 Tab] Risperidone 1 mg PO HS 10/23/16 Abnormal Lab Results 10/30/17 17:56 Chloride 109 H ASSESSMENT AND PLAN: 1. Dysphagia/Choking - Recent chewing/swallow problems may represent progression of the parkinson's disease. However, will consult GI to rule out any esophageal lesion. Keep her NPO and get speech/swallow consult and also a neurology consult. Consult corporate law specialist - patient is underweight. Ensure head elevation of at least 30 degree angle to minimize risk of aspiration. IV fluids D5NS at 40 ml/hour. 2. Parkinson's disease - Continue comprehensive care and explore liquid substitutes for her core medications if she has problems swallowing pills. 3. DVT prophylaxis - Lovenox 40 mg SQ q 24 hours. 4. Advance directives - Full code
[2017-10-30] MEDS: DEXTROSE 5%-NORMAL SALINE 1,000 ML IV SCH (21:13)
--- NOTE | 2017-10-30 21:39 | HP ---
CHIEF COMPLAINT: choking PCP: HISTORY OF PRESENT ILLNESS: 77 yo female with PMH Parkinsons (15 yrs) and depression being admitted following an episode witnessed choking which was successfully terminated by the Heimlich maneuver at about 6 hours ago. Her son states that she was eating soft tortillas cut into small bites when he noted her to be choking. Pts voice is very soft which he states has been progressing for a few months, though today is acutely worse after the choking episode. He states he has noticed her to have increasing difficulty chewing and swallowing over the last 2 weeks. He states that she has had more difficulty with solids, though admits that she has also been coughing some with liquids. He also states that she is ambulatory with a walker and assistance on better days, but that she has been having increasing weakness over the last few months as well. ER course was notable for: (1) Vitals stable, labs w/in normal range (2) CXR noted, no gross infiltrate, possibly some atelectasis in right base (3) Recent Travel: PAST MEDICAL HISTORY: Parkinsons (dx about 15 years ago) Depression PAST SURGICAL HISTORY: B/l total knee replacements R 5th digit amputation about 4 years ago ([facility]) Social History: Smoking: none Alcohol: none Drugs: none Family History: Allergies No Known Drug Allergies Allergy (Verified 10/19/17 12:06) HOME MEDICATIONS: Home Medications Medication Instructions Recorded Cholecalciferol (Vitamin D3) 1,000 unit PO DAILY #0 tab.chew 12/10/13 [Vitamin D3] Paroxetine HCl [Paxil] 30 mg PO DAILY 01/27/16 Vitamin B Complex Vit C No.4 150 mg PO DAILY 01/27/16 [Super B Complex] Vitamin E 400 unit PO DAILY 01/27/16 Carbidopa/Levodopa 1 tab PO TID 10/06/16 [Carbidopa-Levodopa 25-250 Tab] Risperidone 1 mg PO HS 10/23/16 REVIEW OF SYSTEMS CONSTITUTIONAL: fever, generalized weakness Absent: , chills, diaphoresis, , malaise, loss of appetite, weight change HEENT: difficulty swallowing, Absent: rhinorrhea, nasal congestion, throat pain, throat swelling, mouth swelling, ear pain, eye pain, visual changes CARDIOVASCULAR: Absent: chest pain, syncope, palpitations, irregular heart rate, lightheadedness , peripheral edema RESPIRATORY: cough, Absent: shortness of breath, dyspnea with exertion, orthopnea, wheezing, stridor, hemoptysis GASTROINTESTINAL: Absent: abdominal pain, abdominal distension, nausea, vomiting, diarrhea, constipation, melena, hematochezia GENITOURINARY: Absent: dysuria, frequency, urgency, hesitancy, hematuria, flank pain, genital pain MUSCULOSKELETAL: Absent: myalgia, arthralgia, joint swelling, back pain, neck pain SKIN: Absent: rash, itching, pallor HEMATOLOGIC/IMMUNOLOGIC: Absent: easy bleeding, easy bruising, lymphadenopathy, frequent infections ENDOCRINE: Absent: unexplained weight gain, unexplained weight loss, heat intolerance, cold intolerance NEUROLOGIC: Absent: headache, focal weakness or paresthesias, dizziness, unsteady gait, seizure, mental status changes, bladder or bowel incontinence PSYCHIATRIC: depression, Absent: anxiety, suicidal or homicidal ideation, hallucinations. PHYSICAL EXAMINATION Vital Signs - 24 hr 10/30/17 10/30/17 10/30/17 16:17 16:48 20:08 Temperature 97.5 F L 99.3 F Pulse Rate 94 H Pulse Rate [ 80 Apical] Respiratory 16 18 Rate Blood Pressure 141/60 Blood Pressure 162/57 [Right Arm] O2 Sat by Pulse 100 100 100 Oximetry (%) GENERAL: A&O, very thin, no acute distress HEAD: Normocephalic, atraumatic. EYES: PERRL, no scleral icterus EARS, NOSE, THROAT: oropharynx clear without exudates. Moist mucous membranes. NECK: supple without lymphadenopathy LUNGS: CTA b/l, no crackles or wheezes HEART: Regular rate and rhythm, normal S1 and S2 without murmur, rub or gallop. ABDOMEN: Soft, concave abdomen, mildly tender to palpation, normoactive bowel sounds MUSCULOSKELETAL: No bony deformities or tenderness. No CVA tenderness. UPPER EXTREMITIES: 2+ pulses, warm, well-perfused. No cyanosis. No clubbing. No peripheral edema. LOWER EXTREMITIES: 2+ pulses, warm, well-perfused. No calf tenderness. No peripheral edema. NEUROLOGICAL: Cranial nerves II-XII grossly intact. PSYCHIATRIC: Cooperative. Good eye contact. Appropriate mood and affect. SKIN: Warm, dry, normal turgor, no rashes or lesions noted Laboratory Results - last 24 hr 10/30/17 10/30/17 10/30/17 17:56 17:56 18:40 WBC 5.9 RBC 3.87 Hgb 12.5 Hct 34.7 MCV 89.8 MCH 32.3 MCHC 36.0 RDW 15.5 Plt Count 136 MPV 8.3 D Absolute Neuts (auto) 4.8 Neutrophils % 82.5 Lymphocytes % 12.4 D Monocytes % 4.2 Eosinophils % 0.7 Basophils % 0.2 Nucleated RBC % 0 Sodium 145 Potassium 3.6 Chloride 109 H Carbon Dioxide 28 Anion Gap 8 BUN 18 Creatinine 0.6 Creat Clearance w eGFR > 60 Random Glucose 99 Calcium 8.6 Total Bilirubin 0.8 AST 19 ALT 30 Alkaline Phosphatase 79 Creatine Kinase 53 Troponin I 0.03 Total Protein 6.5 Albumin 3.8 Urine Color Colorless Urine Appearance Clear Urine pH 6.0 Ur Specific [place] 1.002 Urine Protein Negative Urine Glucose (UA) Negative Urine Ketones Negative Urine Blood Negative Urine Nitrite Negative Urine Bilirubin Negative Urine Urobilinogen Negative Ur Leukocyte Esterase Negative ASSESSMENT/PLAN: 77 yo female with PMH Parkinsons (15 yrs) and depression being admitted following an episode witnessed choking. Pt has been having increased weakness and dysphagia. Choking episode/Dysphagia -In addition to recent worsening of weakness, could be caused by progression of Parkinsons Dz -Speech and Swallow eval -NPO until S&S -Pt appears underweight, could benefit from clinical reporting developer recommendations as well Parkinsons Dz -Most likely progressing and causing worsening weakness and dysphagia symptoms -Neurology consult ordered -Home Carbidopa/levodopa restarted Depression -Restart PO home meds after speech and swallow -Paroxetine 30 mg PO Daily -Risperidone 1 mg PO Daily FEN -D5 NS @ 42 cc/hr -No electrolyte abnormalities, BMP in AM -NPO until speach and swallow DVT Prophylaxis -Lovenox 40 mg SQ Daily Disposition Observation Visit type - Emergency Visit Emergency Visit: Yes ED Registration Date: 10/30/17 Care time: The patient presented to the Emergency Department on the above date and was hospitalized for further evaluation of their emergent condition. - New Patient This patient is new to me today: Yes Date on this admission: 10/31/17 - Critical Care Critical Care patient: No Hospitalist Screening - Colonoscopy Questionnaire Colonoscopy Questionnaire: Colonoscopy Questionnaire - Patient: 50 - 75 years old and never had a screening colonoscopy: No History of colon or rectal polyps, or CA: No History of IBD, Crohn's disease or UC: No History of abdominal radiation therapy as a child: No - Relative: 1 with colon or rectal CA, or polyps at age 60 or younger: Unknown Colon or rectal CA diagnosed at age 45 or younger: Unknown Multiple relatives with colon or rectal CA: Unknown - Outcome: Screening Result: Negative Screen
[2017-10-30] MEDS: CARBIDOPA/LEVODOPA 25/250 TABLET (FP) PO SCH (22:28)
[2017-10-30] MEDS: risperiDONE 1 MG TABLET (FP) PO SCH (22:28)
[2017-10-31] MEDS: CARBIDOPA/LEVODOPA 25/250 TABLET (FP) PO SCH ×3 (06:58→23:18)
[2017-10-31 07:27] LABS: ALBUMIN 3.4 g/dl (3.4-5.0); CHLORIDE 112 mmol/L (98-107); SODIUM 147 mmol/L (136-145)
[2017-10-31 07:30] LABS: ALK PHOS 62 U/L (45-117); ANION GAP 7 (8-16); BILIRUBIN,TOTAL 0.8 mg/dL (0.2-1.0); BLOOD UREA NITROGEN 16 mg/dL (7-18); CALCIUM 8.3 mg/dL (8.5-10.1); CO2 28 mmol/L (21-32); CREATININE 0.5 mg/dL (0.55-1.02); GLUCOSE,RANDOM 83 mg/dL (74-106); PHOSPHOROUS 3.6 mg/dL (2.5-4.9); SGPT/ALT 12 U/L (12-78); TOT PROT 5.8 g/dl (6.4-8.2)
[2017-10-31 07:32] LABS: MAGNESIUM 2.3 mg/dL (1.8-2.4); POTASSIUM 3.8 mmol/L (3.5-5.1); SGOT/AST 26 U/L (15-37)
--- NOTE | 2017-10-31 08:57 | PN ---
Teaching Attending Note Name of Resident: Lucia Fitzgerald ATTENDING PHYSICIAN STATEMENT I saw and evaluated the patient. I reviewed the resident's note and discussed the case with the resident. I agree with the resident's findings and plan as documented. SUBJECTIVE: OBJECTIVE: Vital Signs Temperature 98.1 F 10/31/17 06:00 Pulse Rate 80 10/31/17 06:00 Respiratory Rate 20 10/31/17 06:00 Blood Pressure 129/53 10/31/17 06:00 O2 Sat by Pulse Oximetry (%) 96 10/31/17 05:48 CBCD WBC 5.9 K/mm3 (4.0-10.0) 10/30/17 17:56 RBC 3.87 M/mm3 (3.60-5.2) 10/30/17 17:56 Hgb 12.5 GM/dL (10.7-15.3) 10/30/17 17:56 Hct 34.7 % (32.4-45.2) 10/30/17 17:56 MCV 89.8 fl (80-96) 10/30/17 17:56 MCHC 36.0 g/dl (32.0-36.0) 10/30/17 17:56 RDW 15.5 % (11.6-15.6) 10/30/17 17:56 Plt Count 136 K/MM3 (134-434) 10/30/17 17:56 MPV 8.3 fl (7.5-11.1) D 10/30/17 17:56 CMP Sodium 147 mmol/L (136-145) H 10/31/17 05:50 Potassium 3.8 mmol/L (3.5-5.1) 10/31/17 05:50 Chloride 112 mmol/L (98-107) H 10/31/17 05:50 Carbon Dioxide 28 mmol/L (21-32) 10/31/17 05:50 Anion Gap 7 (8-16) L 10/31/17 05:50 BUN 16 mg/dL (7-18) 10/31/17 05:50 Creatinine 0.5 mg/dL (0.55-1.02) L 10/31/17 05:50 Creat Clearance w eGFR > 60 (>60) 10/31/17 05:50 Random Glucose 83 mg/dL (74-106) 10/31/17 05:50 Calcium 8.3 mg/dL (8.5-10.1) L 10/31/17 05:50 Total Bilirubin 0.8 mg/dL (0.2-1.0) 10/31/17 05:50 AST 26 U/L (15-37) 10/31/17 05:50 ALT 12 U/L (12-78) 10/31/17 05:50 Alkaline Phosphatase 62 U/L (45-117) D 10/31/17 05:50 Total Protein 5.8 g/dl (6.4-8.2) L 10/31/17 05:50 Albumin 3.4 g/dl (3.4-5.0) 10/31/17 05:50 CARDIAC ENZYMES Creatine Kinase 53 IU/L (26-192) 10/30/17 17:56 Troponin I 0.03 ng/ml (0.00-0.05) 10/30/17 17:56 Current Medications Generic Name Dose Route Start Last Admin Trade Name Freq PRN Reason Stop Dose Admin Carbidopa/Levodopa 1 each 10/30/17 22:00 10/31/17 06:58 Sinemet 25/250 - PO 1 each TID [facility] Administration Cholecalciferol 1,000 unit 10/31/17 10:00 Vitamin D3 - PO DAILY [facility] Enoxaparin Sodium 40 mg 10/31/17 10:00 Lovenox - SQ DAILY [facility] Dextrose/Sodium Chloride 1,000 mls @ 42 mls/hr 10/30/17 21:15 10/30/17 21:13 D5-Ns - IV 42 mls/hr ASDIR KOREY Administration Multivitamins 1 each 10/31/17 10:00 Total B With C - PO DAILY [facility] Paroxetine HCl 20 mg/ 30 mg 10/31/17 10:00 Paroxetine HCl 10 mg PO DAILY [facility] Risperidone 1 mg 10/30/17 22:00 10/30/17 22:28 Risperdal - PO 1 mg HS [facility] Administration Vitamin E 400 unit 10/31/17 10:00 Vitamin E - PO DAILY [facility] Home Medications Medication Instructions Recorded Cholecalciferol (Vitamin D3) 1,000 unit PO DAILY #0 tab.chew 12/10/13 [Vitamin D3] Paroxetine HCl [Paxil] 30 mg PO DAILY 01/27/16 Vitamin B Complex Vit C No.4 150 mg PO DAILY 01/27/16 [Super B Complex] Vitamin E 400 unit PO DAILY 01/27/16 Carbidopa/Levodopa 1 tab PO TID 10/06/16 [Carbidopa-Levodopa 25-250 Tab] Risperidone 1 mg PO HS 10/23/16 CXR: No acute pathology ASSESSMENT AND PLAN: 77 yo female with PMH Parkinsons (15 yrs) and depression being admitted following an episode witnessed choking. Pt has been having increased weakness and dysphagia. # Dysphagia possible due to progression of Parkinsonism dz; consult GI Mariana, Neuro Kingsley And Kajal Farooq appreciated. #Parkinsons Dz :Neurology consult appreciated , continue Sinemet #Depression Restart PO home meds after speech and swallow, continue Paroxetine 30 mg and Risperidone DVT Prophylaxis: Lovenox 40 mg SQ Daily
[2017-10-31 09:04] LABS: BASO % 0.2 % (0-2.0); EOS % 1.4 % (0-4.5); HEMATOCRIT 31.7 % (32.4-45.2); HEMOGLOBIN 11.7 GM/dL (10.7-15.3); LYMPH % 30.2 % (8-40); MCH 33.2 pg (25.7-33.7); MEAN CELL VOLUME 89.9 fl (80-96); MONO % 6.5 % (3.8-10.2); NEUT % 61.7 % (42.8-82.8); PLATELET COUNT 125 K/MM3 (134-434); RBC 3.53 M/mm3 (3.60-5.2); RDW 15.3 % (11.6-15.6)
[2017-10-31] MEDS ORDERED: PARoxetine HCL 10 MG TABLET (FP) ONE (09:24)
[2017-10-31] MEDS ORDERED: PARoxetine HCL 20 MG TABLET (FP) ONE (09:24)
[2017-10-31] MEDS: PAROXETINE HCL 20 MG, PAROXETINE HCL 10 MG PO SCH (09:27)
[2017-10-31] MEDS: ENOXAPARIN NA (PORCINE) 40 MG/0.4 ML DISP.SYRIN SQ SCH (09:27)
[2017-10-31] MEDS: CHOLECALCIFEROL (VITAMIN D3) 1,000 UNIT TABLET (FP) PO SCH (09:27)
[2017-10-31] MEDS ORDERED: VITAMIN B COMPLEX VIT C NO 4 PO SCH (10:00)
[2017-10-31] MEDS ORDERED: PARoxetine HCL 30 MG TABLET PO SCH (10:00)
[2017-10-31] MEDS: VITAMIN E 400 INTERNATIONAL-UNITS CAPSULE (FP) PO SCH (10:15)
--- NOTE | 2017-10-31 10:23 | PN ---
Physical Exam: SUBJECTIVE: Patient seen and examined this morning. Does not communicate very much. OBJECTIVE: Vital Signs Period Temp Pulse Resp BP Sys/Mcginnis Pulse Ox Last 24 Hr 97.5 F-99.3 F 80-94 16-20 123-162/53-71 96-100 GENERAL: AOx1, in no acute distress EYES: PERRL, EOMI, No ptosis. THROAT: oropharynx clear without exudates, moist mucous membranes. LUNGS: Breath sounds equal, clear to auscultation bilaterally, no wheezes, no crackles. HEART: Regular rate and rhythm, S1, S2 without murmur. ABDOMEN: Soft, nontender, nondistended, normoactive bowel sounds, no guarding, no rebound. EXTREMITIES: 2+ pulses, no edema. SKIN: Warm, dry, no rashes or lesions noted Laboratory Results - last 24 hr 10/30/17 10/30/17 10/30/17 17:56 17:56 18:40 WBC 5.9 RBC 3.87 Hgb 12.5 Hct 34.7 MCV 89.8 MCH 32.3 MCHC 36.0 RDW 15.5 Plt Count 136 MPV 8.3 D Absolute Neuts (auto) 4.8 Neutrophils % 82.5 Lymphocytes % 12.4 D Monocytes % 4.2 Eosinophils % 0.7 Basophils % 0.2 Nucleated RBC % 0 Sodium 145 Potassium 3.6 Chloride 109 H Carbon Dioxide 28 Anion Gap 8 BUN 18 Creatinine 0.6 Creat Clearance w eGFR > 60 Random Glucose 99 Calcium 8.6 Phosphorus Magnesium Total Bilirubin 0.8 AST 19 ALT 30 Alkaline Phosphatase 79 Creatine Kinase 53 Troponin I 0.03 Total Protein 6.5 Albumin 3.8 Urine Color Colorless Urine Appearance Clear Urine pH 6.0 Ur Specific [place] 1.002 Urine Protein Negative Urine Glucose (UA) Negative Urine Ketones Negative Urine Blood Negative Urine Nitrite Negative Urine Bilirubin Negative Urine Urobilinogen Negative Ur Leukocyte Esterase Negative 10/31/17 05:50 WBC RBC Hgb Hct MCV MCH MCHC RDW Plt Count MPV Absolute Neuts (auto) Neutrophils % Lymphocytes % Monocytes % Eosinophils % Basophils % Nucleated RBC % Sodium 147 H Potassium 3.8 Chloride 112 H Carbon Dioxide 28 Anion Gap 7 L BUN 16 Creatinine 0.5 L Creat Clearance w eGFR > 60 Random Glucose 83 Calcium 8.3 L Phosphorus 3.6 Magnesium 2.3 Total Bilirubin 0.8 AST 26 ALT 12 Alkaline Phosphatase 62 D Creatine Kinase Troponin I Total Protein 5.8 L Albumin 3.4 Urine Color Urine Appearance Urine pH Ur Specific [place] Urine Protein Urine Glucose (UA) Urine Ketones Urine Blood Urine Nitrite Urine Bilirubin Urine Urobilinogen Ur Leukocyte Esterase Active Medications Carbidopa/Levodopa (Sinemet 25/250 -) 1 each PO TID ON LICENSE OF [facility] Last Admin: 10/31/17 06:58 Dose: 1 each Cholecalciferol (Vitamin D3 -) 1,000 unit PO DAILY ON LICENSE OF [facility] Last Admin: 10/31/17 09:27 Dose: 1,000 unit Enoxaparin Sodium (Lovenox -) 40 mg SQ DAILY ON LICENSE OF [facility] Last Admin: 10/31/17 09:27 Dose: 40 mg Dextrose/Sodium Chloride (D5-Ns -) 1,000 mls @ 42 mls/hr IV ASDIR ON LICENSE OF [facility] Last Admin: 10/30/17 21:13 Dose: 42 mls/hr Multivitamins (Total B With C -) 1 each PO DAILY ON LICENSE OF [facility] Paroxetine HCl 20 mg/ (Paroxetine HCl 10 mg) 30 mg PO DAILY ON [facility] OF [facility] Last Admin: 10/31/17 09:27 Dose: 30 mg Risperidone (Risperdal -) 1 mg PO HS ON LICENSE OF [facility] Last Admin: 10/30/17 22:28 Dose: 1 mg Vitamin E (Vitamin E -) 400 unit PO DAILY ON LICENSE OF [facility] IMAGING: - CXR: No acute chest pathology. No change of an adverse nature since 10/19/2017. - EKG: NORMAL SINUS RHYTHM NORMAL ECG - Modified Barium swallow: Reduced mastication efficiency with risk of choking. Swallow reflex was brisk and strong with no aspiration penetration or stasis noted ASSESSMENT/PLAN: 77 yo female with PMH Parkinsons (15 yrs) and depression being admitted following an episode witnessed choking. Pt has been having increased weakness and dysphagia. 1. Choking episode/Dysphagia - Possibly due to progression of Parkinsons Dz - Speech and Swallow (Kajal Farooq) consulted, Appreciate Rec's: Dysphagia ground diet and thin liquid. Ensure plus. Patient's Son observed the study and was educated on the results. - Clinical hangersmith counsulted - GI (Dr. Sutheralnd) counsulted, appreciate rec's 2. Parkinsons Dz - Likely causing worsening weakness and dysphagia symptoms - Neuro (Dr. Wynn) counsulted - Home Carbidopa/levodopa continued 3. Depression - Restart PO home meds - Paroxetine 30 mg PO Daily - Risperidone 1 mg PO Daily 4. FEN - D5-Ns @ 42 mls/hr IV - lytes wnl - Dysphagia chopped (ground) diet, dysphagia thin liquids 5. DVT Prophylaxis - Lovenox 40 mg SQ Daily Disposition Observation Visit type - Emergency Visit Emergency Visit: Yes ED Registration Date: 10/30/17 Care time: The patient presented to the Emergency Department on the above date and was hospitalized for further evaluation of their emergent condition. - New Patient This patient is new to me today: Yes Date on this admission: 10/31/17 - Critical Care Critical Care patient: No
[2017-10-31] MEDS: VITAMIN B COMPLEX W/C COMBO TABLET (FP) PO SCH (11:01)
--- NOTE | 2017-10-31 12:12 | CONSULT ---
Admitting History and Physical - Primary Care Physician PCP: Geovany Savage - Admission History of Present Illness: 77 yo female with PMH Parkinsons (15 yrs) and depression being admitted following an episode witnessed choking. Pt has been having increased weakness and dysphagia. Pt kept NPO. Seen 06/2016 - Speech Evaluation, Impression/Plan Impression: Hypokinetic dysathria, Language barrier but seems confused. Swallowing is quite brisk with good tolerance of thin liquid from a straw. Extended mastication. Son reports: "fair" appetite at home, but with recent weightloss, drinking 2 ensure daily at home. - Dysphagia Impressions/Plan Swallowing Skills: Impaired (oral pharyngeal. Doubt aspirating.) Dysphagia Impressions: Mild Impairment, Moderate Impairment, Ongoing Evaluation *Silent aspiration: cannot be R/O at bedside Dysphagia Treatment Plan: Small Bites, Chin Tuck/Down, Clear Pocket Food, Safe Rate, 1/2 tsp. at a time, Elevate HOB during feed Recommendations: Other (feed pt. Alternate solids with liquids. 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 Son served as plunger shovel operator. Says she can/t hear because of Parkinson's ??) Attention: Distractible, Mild Impairment - Hearing Hearing: Impaired Hearing Aide: No With Patient: No Speech Evaluation - Communication Primary Language: [id number] Communication: Yes: Simple Responses, Language Barrier, Hearing Deficit Oral Expression Ability: Yes: Mild Impairment, Moderate Impairment - Speech Production Able to Make Needs Known: Yes: Mildly Impaired, Moderately Impaired Intelligibility: Yes: Mildly Impaired, Moderately Impaired - Speech Characteristics Voice Loudness: Mildly Soft/Quiet Voice Pitch: Yes: Mildly Low Voice Phonatory-based Quality: Yes: Dysphonia Speech Clarity: < 75% - Language/Auditory Comprehension Observation: Benefits from Slow Speech: Yes, Benefits from Repetiton: Yes, Benefits from Increased Volume of Speech: Yes - Swallow Evaluation/Bedside Assessment Current Nutritional Intake: NPO Oral Secretions: Yes: WFL Dentition: Yes: Adequate Facial Symmetry at Rest: Symmetrical Facial Symmetry on Retraction: Symmetrical Against Resistance Opening: Normal Against Resistance Closing: Normal Pucker Lips: Weak Smile: Weak Lingual Movement: Symmetric, Reduced Protrusion Lingual Speed of Movement: Normal Lingual Movement Strgth Against Opposition: Reduced Lingual Movement Characteristics: Normal (tremor) Laryngeal Movement: Able to Palpate, Reduced Excursion, Labored,delay initiation Labial Seal: WFL Oral Prep Time: Increased A-P Transit: Impaired Timing of Swallow: Delayed Coughing/Throat Clear: No Change in Voice: No Recommendations - Speech Evaluation, Impression/Plan Impression: r/o dysphagia. Dysphonia. Difficult to assess due to language barrier. Son served as plunger shovel operator. Says she can/t hear because of Parkinson's ?? - Dysphagia Impressions/Plan Swallowing Skills: Impaired Dysphagia Impressions: Risk of Aspiration *Silent aspiration: cannot be R/O at bedside Recommendations: ENT Consult (Out pt Otolaryngology consult/Audiogram/ hearing mgmt), ARACELI Son
--- NOTE | 2017-10-31 13:37 | CON.GI ---
Consult Consult Specialty:: GI Reason for Consultation:: failure to thrive, - History of Present Illness History of Present Illness: Chart reviewed. Events noted. History from the chart and pt's son who was at bedside at the time of this encounter. Progressive in po intake with associated weight loss for 2-3 years. No problems with liquid diet, however, refuses to eat solids, per son. Had a choking on solid food episode yesterday. No history of food impaction, GERD, chronic reflux symptoms, no GI-related issues in the past, per pt's son. No melena,hematochezia. The son reports she takes laxatives. 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 - Alcohol/Substance Use Hx Alcohol Use: No - Smoking History Smoking history: Never smoked Have you smoked in the past 12 months: No Home Medications - Allergies Allergies/Adverse Reactions: Allergies Allergy/AdvReac Type Severity Reaction Status Date / Time No Known Drug Allergies Allergy Verified 10/19/17 12:06 - Home Medications Home Medications: Ambulatory Orders Cholecalciferol (Vitamin D3) [Vitamin D3] 1,000 unit PO DAILY #0 tab.chew Paroxetine HCl [Paxil] 30 mg PO DAILY 01/27/16 Vitamin B Complex Vit C No.4 [Super B Complex] 150 mg PO DAILY 01/27/16 Vitamin E 400 unit PO DAILY 01/27/16 Carbidopa/Levodopa [Carbidopa-Levodopa 25-250 Tab] 1 tab PO TID 10/06/16 Risperidone 1 mg PO HS 10/23/16 Family Disease History - Family Disease History Family History: Unremarkable (non-contributory) Review of Systems Findings/Remarks: as per HPI, ED Physical Exam-GI Vital Signs: Vital Signs Temperature 98.1 F 10/31/17 10:00 Pulse Rate 73 10/31/17 10:00 Respiratory Rate 20 10/31/17 10:00 Blood Pressure 120/60 10/31/17 10:00 O2 Sat by Pulse Oximetry (%) 96 10/31/17 05:48 Constitutional: Yes: No Distress, Calm Eyes: Yes: Conjunctiva Clear HENT: Yes: Atraumatic Neck: Yes: Supple Cardiovascular: Yes: Regular Rate and Rhythm Respiratory: Yes: Regular Gastrointestinal Inspection: No: Ascites, Distention ...Auscultate: Yes: Normoactive Bowel Sounds ...Palpate: Yes: Soft. No: Firm/Rigid, Guarding, Mass, Tenderness, Tenderness, Epigastium Neurological: Yes: Alert Labs: CBC, BMP 10/31/17 05:50 10/31/17 05:50 Laboratory Last Values WBC 4.0 K/mm3 (4.0-10.0) 10/31/17 05:50 RBC 3.53 M/mm3 (3.60-5.2) L 10/31/17 05:50 Hgb 11.7 GM/dL (10.7-15.3) 10/31/17 05:50 Hct 31.7 % (32.4-45.2) L 10/31/17 05:50 MCV 89.9 fl (80-96) 10/31/17 05:50 MCH 33.2 pg (25.7-33.7) 10/31/17 05:50 MCHC 37.0 g/dl (32.0-36.0) H 10/31/17 05:50 RDW 15.3 % (11.6-15.6) 10/31/17 05:50 Plt Count 125 K/MM3 (134-434) L 10/31/17 05:50 MPV 9.0 fl (7.5-11.1) 10/31/17 05:50 Absolute Neuts (auto) 2.5 # 10/31/17 05:50 Neutrophils % 61.7 % (42.8-82.8) D 10/31/17 05:50 Lymphocytes % 30.2 % (8-40) D 10/31/17 05:50 Monocytes % 6.5 % (3.8-10.2) 10/31/17 05:50 Eosinophils % 1.4 % (0-4.5) D 10/31/17 05:50 Basophils % 0.2 % (0-2.0) 10/31/17 05:50 Nucleated RBC % 0 % (0-0) 10/31/17 05:50 Sodium 147 mmol/L (136-145) H 10/31/17 05:50 Potassium 3.8 mmol/L (3.5-5.1) 10/31/17 05:50 Chloride 112 mmol/L (98-107) H 10/31/17 05:50 Carbon Dioxide 28 mmol/L (21-32) 10/31/17 05:50 Anion Gap 7 (8-16) L 10/31/17 05:50 BUN 16 mg/dL (7-18) 10/31/17 05:50 Creatinine 0.5 mg/dL (0.55-1.02) L 10/31/17 05:50 Creat Clearance w eGFR > 60 (>60) 10/31/17 05:50 Random Glucose 83 mg/dL (74-106) 10/31/17 05:50 Calcium 8.3 mg/dL (8.5-10.1) L 10/31/17 05:50 Phosphorus 3.6 mg/dL (2.5-4.9) 10/31/17 05:50 Magnesium 2.3 mg/dL (1.8-2.4) 10/31/17 05:50 Total Bilirubin 0.8 mg/dL (0.2-1.0) 10/31/17 05:50 AST 26 U/L (15-37) 10/31/17 05:50 ALT 12 U/L (12-78) 10/31/17 05:50 Alkaline Phosphatase 62 U/L (45-117) D 10/31/17 05:50 Creatine Kinase 53 IU/L (26-192) 10/30/17 17:56 Troponin I 0.03 ng/ml (0.00-0.05) 10/30/17 17:56 Total Protein 5.8 g/dl (6.4-8.2) L 10/31/17 05:50 Albumin 3.4 g/dl (3.4-5.0) 10/31/17 05:50 Urine Color Colorless 10/30/17 18:40 Urine Appearance Clear 10/30/17 18:40 Urine pH 6.0 (5.0-8.0) 10/30/17 18:40 Ur Specific [place] 1.002 (1.001-1.035) 10/30/17 18:40 Urine Protein Negative (NEGATIVE) 10/30/17 18:40 Urine Glucose (UA) Negative (NEGATIVE) 10/30/17 18:40 Urine Ketones Negative (NEGATIVE) 10/30/17 18:40 Urine Blood Negative (NEGATIVE) 10/30/17 18:40 Urine Nitrite Negative (NEGATIVE) 10/30/17 18:40 Urine Bilirubin Negative (<2.0 mg/dL) 10/30/17 18:40 Urine Urobilinogen Negative mg/dL (0.2-1.0) 10/30/17 18:40 Ur Leukocyte Esterase Negative (NEGATIVE) 10/30/17 18:40 Imaging - Results Chest X-ray: Report Reviewed Problem List - Problems (1) Failure to thrive in adult Code(s): R62.7 - ADULT FAILURE TO THRIVE (2) Dysphagia Code(s): R13.10 - DYSPHAGIA, UNSPECIFIED Assessment/Plan A 77F with what appears to be a progressive dementia affecting swallowing and preventing adequate PO intake. Agree with obtaining SS evaluation and modified barium esophagram. EGD as per SS findings. Aspiration precautions. Soft/dysphagia diet. Will follow.
--- NOTE | 2017-10-31 14:06 | EKG ---
Test Reason : Blood Pressure : / mmHG Vent. Rate : 087 BPM Atrial Rate : 087 BPM P-R Int : 176 ms QRS Dur : 082 ms QT Int : 366 ms P-R-T Axes : 056 048 053 degrees QTc Int : 440 ms NORMAL SINUS RHYTHM NORMAL ECG WHEN COMPARED WITH ECG OF 19-OCT-2017 13:21, NO SIGNIFICANT CHANGE WAS FOUND Confirmed by DOUGIE MORA MD ([id number]) on 10/31/2017 2:05:53 PM Referred By: Confirmed By:DOUGIE MORA MD
[2017-10-31] MEDS ORDERED: PT OWN MED DRAWER 7, Y5N ONE ×2 (14:32→22:29)
--- NOTE | 2017-10-31 19:18 | CON.NEURO ---
Consult Consult Specialty:: [place] Referred by:: Hospitlaist - History of Present Illness History of Present Illness: this is a 77-year-old right-handed Gabonese-echols after she had a choking episode at home I note the patient for many years patient has been under my care for Parkinson' s has been progressing with diff difficulty controlling her disease. 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 - Alcohol/Substance Use Hx Alcohol Use: No - Smoking History Smoking history: Never smoked Have you smoked in the past 12 months: No Home Medications - Allergies Allergies/Adverse Reactions: Allergies Allergy/AdvReac Type Severity Reaction Status Date / Time No Known Drug Allergies Allergy Verified 10/19/17 12:06 - Home Medications Home Medications: Ambulatory Orders Cholecalciferol (Vitamin D3) [Vitamin D3] 1,000 unit PO DAILY #0 tab.chew Paroxetine HCl [Paxil] 30 mg PO DAILY 01/27/16 Vitamin B Complex Vit C No.4 [Super B Complex] 150 mg PO DAILY 01/27/16 Vitamin E 400 unit PO DAILY 01/27/16 Carbidopa/Levodopa [Carbidopa-Levodopa 25-250 Tab] 1 tab PO Q6H 10/06/16 Risperidone 1 mg PO HS 10/23/16 Amantadine HCl [Amantadine] 100 mg PO DAILY 10/31/17 Cyclosporine [Restasis] 1 drop OU DAILY 10/31/17 Cyclosporine [Restasis] 1 drop OU DAILY 10/31/17 Mirtazapine 15 mg PO DAILY 10/31/17 Omeprazole 40 mg PO DAILY 10/31/17 Quetiapine Fumarate [Seroquel -] 50 mg PO DAILY 10/31/17 Vortioxetine Hydrobromide [Trintellix] 20 mg PO DAILY 10/31/17 Family Disease History - Family Disease History Family History: Unable to Obtain Review of Systems - Review of Systems Constitutional: reports: No Symptoms Eyes: reports: No Symptoms Physical Exam-Neuro Vital Signs: Vital Signs Temperature 98.7 F 10/31/17 14:00 Pulse Rate 99 H 10/31/17 14:00 Respiratory Rate 20 10/31/17 18:00 Blood Pressure 114/60 10/31/17 14:00 O2 Sat by Pulse Oximetry (%) 96 10/31/17 18:00 Constitutional: Yes: Well Nourished Neck: Yes: WNL Labs: CBC, BMP 10/31/17 05:50 10/31/17 05:50 - Neuro Exam Level Of Consciousness: Yes: Oriented to Person, Oriented to Place Eyes: Yes: PERRLA Speech: Garbled Dominant Hand: Right Cranial Nerves II-XII Intact: Yes Gag: Present DTR's: 1+ Left Bicep, 1+ Right Bicep, 1+ Left Tricep, 1+ Right Tricep Response to light touch: Abnormal Response to pain prick: Abnormal Movement Disorders: Spasticity, Tremors Motor Strength: 2/5: Left Arm, Right Arm, Left Leg, Right Leg Problem List - Problems (1) Parkinson disease Assessment/Plan: 1. aspiration precautions 2. Sinement adjust 3. DVT prophylaxis 4. PT 5. TEDS unit Code(s): G20 - PARKINSON'S DISEASE
[2017-10-31] MEDS: risperiDONE 1 MG TABLET (FP) PO SCH (23:17)
[2017-10-31] MEDS: DEXTROSE 5%-NORMAL SALINE 1,000 ML IV SCH (23:19)
[2017-11-01 07:05] LABS: BASO % 0.1 % (0-2.0); EOS % 1.6 % (0-4.5); HEMOGLOBIN 11.4 GM/dL (10.7-15.3); LYMPH % 23.8 % (8-40); MCH 32.9 pg (25.7-33.7); MCHC 36.9 g/dl (32.0-36.0); MEAN CELL VOLUME 89.3 fl (80-96); MEAN PLT VOLUME 8.4 fl (7.5-11.1); MONO % 4.7 % (3.8-10.2); NEUT % 69.8 % (42.8-82.8); PLATELET COUNT 112 K/MM3 (134-434); RBC 3.47 M/mm3 (3.60-5.2); RDW 15.5 % (11.6-15.6)
--- NOTE | 2017-11-01 07:31 | PN ---
Physical Exam: SUBJECTIVE: Patient seen and examined this morning at bedside. No overnight acute events as per nursing. Patient does communicate very much, mumbles words and speech is unclear. OBJECTIVE: Vital Signs Period Temp Pulse Resp BP Sys/Mcginnis Pulse Ox Last 24 Hr 97.4 F-98.7 F 73-102 20-20 104-126/54-66 96-97 GENERAL: AOx1, in no acute distress EYES: PERRL THROAT: oropharynx clear without exudates, moist mucous membranes. LUNGS: Breath sounds equal, clear to auscultation bilaterally, no wheezes, no crackles. HEART: Regular rate and rhythm, S1, S2 without murmur. ABDOMEN: Soft, nontender, nondistended, normoactive bowel sounds, no guarding, no rebound. EXTREMITIES: 2+ pulses, 1+ edema. SKIN: Warm, dry, no rashes or lesions noted Laboratory Results - last 24 hr 10/31/17 10/31/17 05:50 05:50 WBC 4.0 RBC 3.53 L Hgb 11.7 Hct 31.7 L MCV 89.9 MCH 33.2 MCHC 37.0 H RDW 15.3 Plt Count 125 L MPV 9.0 Absolute Neuts (auto) 2.5 Neutrophils % 61.7 D Lymphocytes % 30.2 D Monocytes % 6.5 Eosinophils % 1.4 D Basophils % 0.2 Nucleated RBC % 0 Sodium 147 H Potassium 3.8 Chloride 112 H Carbon Dioxide 28 Anion Gap 7 L BUN 16 Creatinine 0.5 L Creat Clearance w eGFR > 60 Random Glucose 83 Calcium 8.3 L Phosphorus 3.6 Magnesium 2.3 Total Bilirubin 0.8 AST 26 ALT 12 Alkaline Phosphatase 62 D Total Protein 5.8 L Albumin 3.4 Active Medications Carbidopa/Levodopa (Sinemet 25/250 -) 1 each PO QID [facility] Last Admin: 10/31/17 23:18 Dose: 1 each Cholecalciferol (Vitamin D3 -) 1,000 unit PO DAILY [facility] Last Admin: 10/31/17 09:27 Dose: 1,000 unit Enoxaparin Sodium (Lovenox -) 40 mg SQ DAILY [facility] Last Admin: 10/31/17 09:27 Dose: 40 mg Dextrose/Sodium Chloride (D5-Ns -) 1,000 mls @ 42 mls/hr IV ASDIR [facility] Last Admin: 10/31/17 23:19 Dose: 42 mls/hr Multivitamins (Total B With C -) 1 each PO DAILY [facility] Last Admin: 10/31/17 11:01 Dose: 1 each Paroxetine HCl 20 mg/ (Paroxetine HCl 10 mg) 30 mg PO DAILY [facility] Last Admin: 10/31/17 09:27 Dose: 30 mg Risperidone (Risperdal -) 1 mg PO HS [facility] Last Admin: 10/31/17 23:17 Dose: 1 mg Vitamin E (Vitamin E -) 400 unit PO DAILY [facility] Last Admin: 10/31/17 10:15 Dose: 400 unit IMAGING: - CXR: No acute chest pathology. No change of an adverse nature since 10/19/2017. - EKG: NORMAL SINUS RHYTHM NORMAL ECG - Modified Barium swallow: Reduced mastication efficiency with risk of choking. Swallow reflex was brisk and strong with no aspiration penetration or stasis noted ASSESSMENT/PLAN: 77 yo female with PMH Parkinsons (15 yrs) and depression being admitted following an episode witnessed choking. Pt has been having increased weakness and dysphagia. 1. Choking episode/Dysphagia - Possibly due to progression of Parkinsons Dz - Speech and Swallow (Kajal Farooq) consulted, Appreciate Rec's: Dysphagia ground diet and thin liquid. Ensure plus. Patient's Son observed the study and was educated on the results. - Clinical strap sewer counsulted - GI (Dr. Sutherland) counsulted, appreciate rec's 2. Parkinsons Dz - Likely causing worsening weakness and dysphagia symptoms - Neuro (Dr. Wynn) counsulted - Home Carbidopa/levodopa continued 3. Depression - Restart PO home meds - Paroxetine 30 mg PO Daily - Risperidone 1 mg PO Daily 4. FEN - D5-Ns @ 42 mls/hr IV - lytes wnl - Dysphagia chopped (ground) diet, dysphagia thin liquids 5. DVT Prophylaxis - Lovenox 40 mg SQ Daily Disposition Observation
[2017-11-01 07:35] LABS: ALBUMIN 3.2 g/dl (3.4-5.0); ANION GAP 7 (8-16); BLOOD UREA NITROGEN 15 mg/dL (7-18); CHLORIDE 113 mmol/L (98-107); CO2 28 mmol/L (21-32); GLUCOSE,RANDOM 85 mg/dL (74-106); MAGNESIUM 2.3 mg/dL (1.8-2.4); POTASSIUM 3.6 mmol/L (3.5-5.1); SODIUM 148 mmol/L (136-145)
[2017-11-01 07:39] LABS: ALK PHOS 56 U/L (45-117); CREATININE 0.6 mg/dL (0.55-1.02); PHOSPHOROUS 3.6 mg/dL (2.5-4.9); SGOT/AST 15 U/L (15-37); SGPT/ALT 9 U/L (12-78); TOT PROT 5.5 g/dl (6.4-8.2)
[2017-11-01] MEDS ORDERED: DEXTROSE 5%-0.45% SALINE 1,000 ML IV SCH (08:00)
[2017-11-01] MEDS ORDERED: PARoxetine HCL 10 MG TABLET (FP) ONE (10:44)
[2017-11-01] MEDS ORDERED: PARoxetine HCL 20 MG TABLET (FP) ONE (10:45)
[2017-11-01] MEDS ORDERED: PT OWN MED DRAWER 7, Y5N ONE (10:45)
[2017-11-01] MEDS: PAROXETINE HCL 20 MG, PAROXETINE HCL 10 MG PO SCH (10:59)
[2017-11-01] MEDS: CARBIDOPA/LEVODOPA 25/250 TABLET (FP) PO SCH ×3 (10:59→17:48)
[2017-11-01] MEDS: CHOLECALCIFEROL (VITAMIN D3) 1,000 UNIT TABLET (FP) PO SCH (10:59)
[2017-11-01] MEDS: ENOXAPARIN NA (PORCINE) 40 MG/0.4 ML DISP.SYRIN SQ SCH (10:59)
[2017-11-01] MEDS: VITAMIN B COMPLEX W/C COMBO TABLET (FP) PO SCH (10:59)
[2017-11-01] MEDS: VITAMIN E 400 INTERNATIONAL-UNITS CAPSULE (FP) PO SCH (11:00)
--- NOTE | 2017-11-01 12:43 | PN ---
Progress Note, BANQUET CAPTAIN - Note Progress Note: Pt downgraded to dys chopped and thin liquids with good tolerance. Selected Entries 10/31/17 11/01/17 11/01/17 18:30 02:00 06:00 Breakfast Supper 75% Temperature 97.4 F L 97.5 F L 11/01/17 11:11 Breakfast 75% Supper Temperature MBSreviewed /Son and Staff aware of feeding recommendations.
--- NOTE | 2017-11-01 14:07 | PN ---
Teaching Attending Note Name of Resident: Lucia Fitzgerald ATTENDING PHYSICIAN STATEMENT I saw and evaluated the patient. I reviewed the resident's note and discussed the case with the resident. I agree with the resident's findings and plan as documented with exceptions below. SUBJECTIVE: patient seen and examined, no complaints. son at bedside. OBJECTIVE: Vital Signs Period Temp Pulse Resp BP Sys/Mcginnis Pulse Ox Last 24 Hr 97.4 F-98.2 F 78-102 20-20 104-126/54-66 96-97 Intake & Output 10/29/17 10/30/17 10/31/17 11/01/17 23:59 23:59 23:59 23:59 Intake Total 552 604 Balance 552 604 Weight 90 lb 96 lb general: lying in bed in no acute distress Chest: decreased effort, no rales or wheezing Abdomen:Soft, NT, Nd, positive bowel sounds Extremities: no edema Home Medications Medication Instructions Recorded Cholecalciferol (Vitamin D3) 1,000 unit PO DAILY #0 tab.chew 12/10/13 [Vitamin D3] Paroxetine HCl [Paxil] 30 mg PO DAILY 01/27/16 Vitamin B Complex Vit C No.4 150 mg PO DAILY 01/27/16 [Super B Complex] Vitamin E 400 unit PO DAILY 01/27/16 Carbidopa/Levodopa 1 tab PO Q6H 10/06/16 [Carbidopa-Levodopa 25-250 Tab] Risperidone 1 mg PO HS 10/23/16 Amantadine HCl [Amantadine] 100 mg PO DAILY 10/31/17 Cyclosporine [Restasis] 1 drop OU DAILY 10/31/17 Mirtazapine 15 mg PO DAILY 10/31/17 Omeprazole 40 mg PO DAILY 10/31/17 Quetiapine Fumarate [Seroquel -] 50 mg PO DAILY 10/31/17 Vortioxetine Hydrobromide 20 mg PO DAILY 10/31/17 [Trintellix] Active Medications Carbidopa/Levodopa (Sinemet 25/250 -) 1 each PO QID [facility] Last Admin: 11/01/17 10:59 Dose: 1 each Cholecalciferol (Vitamin D3 -) 1,000 unit PO DAILY [facility] Last Admin: 11/01/17 10:59 Dose: 1,000 unit Enoxaparin Sodium (Lovenox -) 40 mg SQ DAILY [facility] Last Admin: 11/01/17 10:59 Dose: 40 mg Dextrose/Sodium Chloride (D5-1/2ns -) 1,000 mls @ 42 mls/hr IV ASDIR [facility] Last Admin: 11/01/17 09:57 Dose: 42 mls/hr Multivitamins (Total B With C -) 1 each PO DAILY [facility] Last Admin: 11/01/17 10:59 Dose: 1 each Paroxetine HCl 20 mg/ (Paroxetine HCl 10 mg) 30 mg PO DAILY [facility] Last Admin: 11/01/17 10:59 Dose: 30 mg Risperidone (Risperdal -) 1 mg PO HS [facility] Last Admin: 10/31/17 23:17 Dose: 1 mg Vitamin E (Vitamin E -) 400 unit PO DAILY [facility] Last Admin: 11/01/17 11:00 Dose: 400 unit ASSESSMENT AND PLAN: 77 yof with Parkinson's disease, Depression, admitted with witnessed choking episode. -Witnessed choking episode _parkinson's disease Plan: Speech/swallow input noted. Ground diet with thin liquids, aspiration precautions. Neurology input noted. Sinemet increased. PT eval noted. PLan for home with assist/VNS/PT. D/c home with services today. Plan discussed with son at bedside in detail, all questions answered.
--- NOTE | 2017-11-01 15:34 | DS ---
Physical Exam: SUBJECTIVE: Patient seen and examined at bedside. No complaints. Limited communication. OBJECTIVE: Vital Signs Period Temp Pulse Resp BP Sys/Mcginnis Pulse Ox Last 24 Hr 97.4 F-98.2 F 78-102 20-20 104-126/54-66 96-97 PHYSICAL EXAM GENERAL: NAD, lying in bed, frail-appearing HEAD: NCAT EYES: PERRL, extraocular movements intact, sclera anicteric, conjunctiva clear. NECK: Trachea midline, full range of motion, supple. no jvd LUNGS: Breath sounds equal, clear to auscultation bilaterally, no wheezes, no crackles, no accessory muscle use. HEART: Regular rate and rhythm, S1, S2 without murmur, rub or gallop. ABDOMEN: Soft, nontender, nondistended, normoactive bowel sounds, no guarding, no rebound, no hepatosplenomegaly, no masses. EXTREMITIES: 2+ pulses, warm, well-perfused, no edema. NEUROLOGICAL: Limited patient participation. Mask-like facies. Cogwheel rigidity. Unable to assess strength/sensation SKIN: Warm, dry, normal turgor, no rashes or lesions noted. LABS Laboratory Results - last 24 hr 11/01/17 11/01/17 11/01/17 06:15 06:15 06:15 WBC 5.0 RBC 3.47 L Hgb 11.4 Hct 31.0 L MCV 89.3 MCH 32.9 MCHC 36.9 H RDW 15.5 Plt Count 112 L MPV 8.4 Absolute Neuts (auto) 3.5 Neutrophils % 69.8 Lymphocytes % 23.8 D Monocytes % 4.7 Eosinophils % 1.6 Basophils % 0.1 Nucleated RBC % 0 ESR 5 Sodium 148 H Potassium 3.6 Chloride 113 H Carbon Dioxide 28 Anion Gap 7 L BUN 15 Creatinine 0.6 Creat Clearance w eGFR > 60 Random Glucose 85 Calcium 8.0 L Phosphorus 3.6 Magnesium 2.3 Total Bilirubin 1.0 AST 15 ALT 9 L Alkaline Phosphatase 56 Total Protein 5.5 L Albumin 3.2 L HOSPITAL COURSE: Date of Admission:10/30/17 Date of Discharge: 11/01/17 Pt is a 77 y/o F with PMH Parkinson's x 15 years who presented to ED after having an episode of choking during which her son successfully performed the Heimlich maneuver on her. Pt was placed on Obs and made NPO and put on aspiration precautions. She was seen by speech and swallow and had an MBS done. MBS revealed reduced mastication but brisk swallow reflex. Pt was placed on chopped diet with thin liquids and tolerated it well. Pt was seen by GI who agreed with speech and swallow evaluation and soft diet. Pt was seen by Neurology who increased her Sinemet from TID to QID. Pt has no complaints. Pt is in no distress and is stable for discharge. She is being discharged with VNS, home PT, and pt requires a lightweight wheelchair to complete ADLs within her home due to her parkinson's disease. Minutes to complete discharge: 40 Discharge Summary Reason For Visit: DYSPHAGIA Current Active Problems Dysphagia (Acute) Failure to thrive in adult (Acute) Condition: Stable - Instructions Diet, Activity, Other Instructions: You were admitted for difficulty swallowing after a choking episode. You were evaluated by a speech and swallow therapist who recommended you have a ground diet (grind table foods using a small baby food knife setter grinder machine or food chopper) with thin liquids. Please add Ensure plus to your diet. You are being sent home with visiting nurse services. 1:1 meal assist Please sit upright 90 degrees during meals and for 1 hour post meals. Carefully continue diet consistency as recommended and stop if any choking, trouble breathing, or new concerns and call 911 or come to ED. 24 hour assist and supervision with activities. Your Parkinsons disease medication, SInemet, you are advised to take it 4 times a day. You will take it at 9am, 1pm, 6pm, and 10pm. Please take this medication as prescribed. Please follow up with your neurologist within one week for follow up. If you are unable to follow up with your neurologist, Please set up follow up with Dr. Wynn (who visited you here) to further manage your condition. Continue rest of your medications as before. Please follow up with your PCP in one week. Please return to the Emergency Department or Call 911 if you experience any worrisome symptoms including new fevers, chills, chest pain, dizziness, new bleeds, new choking, trouble breathing or new concerns. Referrals: Soni Wynn MD [Staff Physician] - Disposition: VNS/HOME HEALTH CARE - Home Medications Comprehensive Discharge Medication List: Ambulatory Orders Cholecalciferol (Vitamin D3) [Vitamin D3] 1,000 unit PO DAILY #0 tab.chew Paroxetine HCl [Paxil] 30 mg PO DAILY 01/27/16 Vitamin B Complex Vit C No.4 [Super B Complex] 150 mg PO DAILY 01/27/16 Vitamin E 400 unit PO DAILY 01/27/16 Carbidopa/Levodopa [Carbidopa-Levodopa 25-250 Tab] 1 tab PO Q6H 10/06/16 Risperidone 1 mg PO HS 10/23/16 Amantadine HCl [Amantadine] 100 mg PO DAILY 10/31/17 Cyclosporine [Restasis] 1 drop OU DAILY 10/31/17 Mirtazapine 15 mg PO DAILY 10/31/17 Omeprazole 40 mg PO DAILY 10/31/17 Quetiapine Fumarate [Seroquel -] 50 mg PO DAILY 10/31/17 Vortioxetine Hydrobromide [Trintellix] 20 mg PO DAILY 10/31/17 This patient is new to me today: No Emergency Visit: No Critical Care patient: No - Discharge Referral Referred to [facility] No
[2017-11-01 18:20] VITALS: BP 102/46; PULSE 108; TEMP 99.4
== END 2017-11-01 18:34 | disposition home health service (06) ==
LOC: JER 16:13 → JERBED 20:12 → UNDOADMOB 20:56 → JERBED 20:56 → J5S 22:53
PROVIDERS: ADMIT Internal Medicine; ATTEND Hospitalist
PROC: 3E013GC Introduction of Other Therapeutic Substance into Subcutaneous Tissue, Percutaneous Approach (ICD-10-PCS; principal; 2017-10-30)
PROC: 3E0337Z Introduction of Electrolytic and Water Balance Substance into Peripheral Vein, Percutaneous Approach (ICD-10-PCS; 2017-10-30)
DX: R13.10 Dysphagia, unspecified (principal); G20 Parkinson's disease; F32.9 Major depressive disorder, single episode, unspecified; R62.7 Adult failure to thrive; R09.89 Other specified symptoms and signs involving the circulatory and respiratory systems
CPT/HCPCS: 36415; 71045-TC-FY; 74230-TC-FY; 80053; 81003; 82550; 83090; 83735; 84100; 84484; 85025; 85651; 86038; 87081; 87086; 92611-GN; 93005; 93010; 96372; 97116-GP; 97162-GP; 99283-25; G0378; G8996-CK-GN; G8997-CK-GN; G8998-CK-GN; J2794

== ENCOUNTER 2018-02-13 09:21 | Emergency (ER) | payer MEDICARE, OTHER ==
[2018-02-13 09:31] VITALS: TEMP 97.5; BMI 20.7
[2018-02-13] MEDS ORDERED: BISACODYL 10 MG SUPP.RECT PR ONE (11:02)
[2018-02-13] MEDS ORDERED: MAGNESIUM CITRATE 300 ML BOTTLE PO ONE (11:02)
[2018-02-13] MEDS ORDERED: BISACODYL 10 MG SUPP.RECT RC ONE (11:06)
[2018-02-13] MEDS ORDERED: MAGNESIUM CITRATE 300 ML BOTTLE ONE (11:07)
--- NOTE | 2018-02-13 11:10 | PDOC ---
History of Present Illness - General Chief Complaint: Constipation Stated Complaint: Constipation Time Seen by Provider: 02/13/18 10:52 - History of Present Illness Initial Comments: 02/13/18 11:05 77 F with h/o parkinson's presents to ED with constipation. Family states that her last BM was 8 days ago. Pt denies any nausea or vomiting. Denies abdominal distention. NO prior surgeries. Family reports that her constipation is a chronic issue. She does not take any stool softeners because her PMD did not want her to take any. Family has been giving her prune juice. Pt reports cramp- like abdominal pain and the urge to defecate but is unable to do so. Currently denies any pain. No F/C. No CP/SOB. No dysuria. Family states that she was given a "liquid medicine" in the past that helped with her constipation. Past History - Past Medical History Allergies/Adverse Reactions: Allergies Allergy/AdvReac Type Severity Reaction Status Date / Time No Known Drug Allergies Allergy Verified 02/13/18 09:26 Home Medications: Ambulatory Orders Cholecalciferol (Vitamin D3) [Vitamin D3] 1,000 unit PO DAILY #0 tab.chew Paroxetine HCl [Paxil] 30 mg PO DAILY 01/27/16 Vitamin B Complex Vit C No.4 [Super B Complex] 150 mg PO DAILY 01/27/16 Vitamin E 400 unit PO DAILY 01/27/16 Carbidopa/Levodopa [Carbidopa-Levodopa 25-250 Tab] 1 tab PO Q6H 10/06/16 Risperidone 1 mg PO HS 10/23/16 Amantadine HCl [Amantadine] 100 mg PO DAILY 10/31/17 Cyclosporine [Restasis] 1 drop OU DAILY 10/31/17 Mirtazapine 15 mg PO DAILY 10/31/17 Omeprazole 40 mg PO DAILY 10/31/17 Quetiapine Fumarate [Seroquel -] 50 mg PO DAILY 10/31/17 Vortioxetine Hydrobromide [Trintellix] 20 mg PO DAILY 10/31/17 Docusate Sodium [Colace -] 100 mg PO BID #14 capsule 02/13/18 Sennosides [Senna] 2 tab PO DAILY #30 tablet 02/13/18 Cardiac Disorders: No CVA: No COPD: No CHF: No Dementia: Yes (PARKINSONS) Diabetes: No GI Disorders: No Disorders: No HTN: No Hypercholesterolemia: No Liver Disease: No Psychiatric Problems: Yes (DEPRESSION) Seizures: No Thyroid Disease: No - Surgical History Abdominal Surgery: No Appendectomy: No Cardiac Surgery: No Cholecystectomy: No Lung Surgery: No Neurologic Surgery: No Orthopedic Surgery: Yes (bilateral knee surgery) - Immunization History Immunization Up to Date: Yes - Suicide/Smoking/Psychosocial Hx Smoking History: Never smoked Have you smoked in the past 12 months: No Information on smoking cessation initiated: No Hx Alcohol Use: No Drug/Substance Use Hx: No Substance Use Type: None Hx Substance Use Treatment: No Review of Systems - Review of Systems Comments:: 02/13/18 11:07 "GENERAL/CONSTITUTIONAL: No fever or chills. No weakness. HEAD, EYES, EARS, NOSE AND THROAT: No change in vision. No ear pain or discharge. No sore throat. CARDIOVASCULAR: No chest pain, no shortness of breath, no loss of consciousness RESPIRATORY: No cough, wheezing, or hemoptysis. GASTROINTESTINAL: + constipation, No nausea, vomiting, or diarrhea. GENITOURINARY: No dysuria, frequency, or change in urination. MUSCULOSKELETAL: No joint or muscle swelling or pain. No neck or back pain. SKIN: No rash NEUROLOGIC: No vertigo, no change in strength/sensation. ENDOCRINE: No increased thirst. No abnormal weight change. HEMATOLOGIC/LYMPHATIC: No anemia, easy bleeding, or history of blood clots. ALLERGIC/IMMUNOLOGIC: No hives or skin allergy. *Physical Exam - Vital Signs Last Vital Signs Temp Pulse Resp BP Pulse Ox 97.5 F L 90 16 91/31 L 99 02/13/18 09:27 02/13/18 09:27 02/13/18 09:27 02/13/18 09:27 02/13/18 09:27 - Physical Exam Comments: 02/13/18 11:08 GENERAL: Awake, alert, and fully oriented, in no acute distress. HEAD: No signs of trauma EYES: PERRLA, EOMI, sclera anicteric, conjunctiva clear ENT: Auricles normal inspection, hearing grossly normal, nares patent, oropharynx clear without exudates. Moist mucosa NECK: Nontender, no stepoffs, Normal ROM, supple, no lymphadenopathy, JVD, or masses LUNGS: Breath sounds equal, clear to auscultation bilaterally. No wheezes, and no crackles HEART: Regular rate and rhythm, normal S1 and S2, no murmurs, rubs or gallops ABDOMEN: Soft, nondistended, nontender, normoactive bowel sounds. No guarding, no rebound. No masses EXTREMITIES: Normal range of motion, no edema. No clubbing or cyanosis. No cords, erythema, or tenderness NEUROLOGICAL: Cranial nerves II through XII intact. 5/5 strength and sensation in all extremities, Normal speech, normal gait, normal cerebellar function SKIN: Warm, Dry, normal turgor, no rashes or lesions noted. Medical Decision Making - Medical Decision Making 02/13/18 11:10 77 F with constipation x 8 days. Pt reports crampy intermittent abdominal pain but DENIES pain in the ED and has completely benign abdominal exam. No distention or clinical signs of obstruction. Pt is well appearing, non-toxic, with normal exam. Pt noted to be slightly hypotensive, but chart review shows this is likely pt's baseline. Pt with no tachycardia. No fever. - Mag citrate - Dulcolax supp 02/13/18 12:39 Pt had large BM after mag citrate and suppository. Now reports that she feels much better. Repeat abdominal exam benign. Pt very well appearing Will PO challenge at this time. *DC/Admit/Observation/Transfer Diagnosis at time of Disposition: Constipation - Discharge Dispostion Disposition: HOME - Referrals Referrals: Lucas Turner MD [Primary Care Provider] - Hamlet Huston DO [Staff Physician] - - Patient Instructions Printed Discharge Instructions: DI for Constipation Additional Instructions: Eat a high fiber diet and drink plenty of fluids to prevent constipation. Take the stool softeners as prescribed. If you experience any abdominal pain, vomiting, fevers, or any other concerning symptoms, return to the ER immediately. Otherwise, follow up with a automobile brakes bonder within 1 week. Call the number provided to make an appointment. Lleve christian dieta pavel en fibra y tome muchos lquidos para prevenir el estreimiento. [place] los ablandadores de heces segn lo prescrito. Si experimenta dolor abdominal, vmitos, fiebres o cualquier otro sntoma relacionado con los sntomas, vuelva a la kathleen de emergencias inmediatamente. De lo contrario, vicky un seguimiento con un gastroenterlogo dentro de 1 semana. Llame al nmero proporcionado para hacer christian nathan. - Post Discharge Activity - Attestations Physician Attestion: 02/13/18 12:43 I, Dr. Patrick Swenson MD, attest that this document has been prepared under my direction and personally reviewed by me in its entirety. I further attest, that it accurately reflects all work, treatment, procedures and medical decision -making performed by me.
[2018-02-13 12:58] VITALS: BP 111/46; PULSE 102
== END 2018-02-13 12:58 | disposition home or self-care (01) ==
LOC: JER 09:21
DX: K59.00 Constipation, unspecified (principal); G20 Parkinson's disease; F02.80 Dementia in other diseases classified elsewhere, unspecified severity, without behavioral disturbance, psychotic disturbance, mood disturbance, and anxiety; F41.9 Anxiety disorder, unspecified
CPT/HCPCS: 99282-25

== ENCOUNTER 2018-08-07 16:43 | Emergency (ER) | payer MEDICARE, OTHER ==
--- NOTE | 2018-08-07 17:38 | PDOC ---
Rapid Medical Evaluation Chief Complaint: Pain, Acute Time Seen by Provider: 08/07/18 17:35 Medical Evaluation: Allergies Allergy/AdvReac Type Severity Reaction Status Date / Time No Known Drug Allergies Allergy Verified 08/07/18 17:35 08/07/18 17:35 I have performed a brief in-person evaluation of this patient. The patient presents with a chief complaint of: H/o parkingsons brought in by son with complains of pain and deformity to left foot. Son report he realized toe deformity today and brought mother to ED Pertinent physical exam findings:valgus derfomity of left 2nd and 3th toes I have ordered the following: nothing The patient will proceed to the ED for further evaluation. Discharge Disposition - Diagnosis Toe deformity - Discharge Dispostion Condition at time of disposition: Stable - Referrals - Patient Instructions - Post Discharge Activity
[2018-08-07 17:42] VITALS: BP 115/50; PULSE 87; TEMP 99.1; BMI 20.2
--- NOTE | 2018-08-07 18:27 | PDOC ---
History of Present Illness - General Chief Complaint: Pain, Acute Stated Complaint: TOE INFECTED Time Seen by Provider: 08/07/18 17:35 - History of Present Illness Initial Comments: 08/07/18 18:23 77-year-old noncommunicative woman with Parkinson's disease presents for evaluation with her sons for potential infection of her left second toe. No systemic symptoms. Patient is unable to give a history Past History - Past Medical History Allergies/Adverse Reactions: Allergies Allergy/AdvReac Type Severity Reaction Status Date / Time No Known Drug Allergies Allergy Verified 08/07/18 18:11 Home Medications: Ambulatory Orders Cholecalciferol (Vitamin D3) [Vitamin D3] 1,000 unit PO DAILY #0 tab.chew Vitamin E 400 unit PO DAILY 01/27/16 Carbidopa/Levodopa [Carbidopa-Levodopa 25-250 Tab] 1 tab PO Q6H 10/06/16 Risperidone 1 mg PO HS 10/23/16 Cyclosporine [Restasis] 1 drop OU DAILY 10/31/17 Vortioxetine Hydrobromide [Trintellix] 20 mg PO DAILY 10/31/17 Cardiac Disorders: No CVA: No COPD: No CHF: No Dementia: Yes (PARKINSONS) Diabetes: No GI Disorders: No Disorders: No HTN: No Hypercholesterolemia: No Liver Disease: No Psychiatric Problems: Yes (DEPRESSION) Seizures: No Thyroid Disease: No - Surgical History Abdominal Surgery: No Appendectomy: No Cardiac Surgery: No Cholecystectomy: No Lung Surgery: No Neurologic Surgery: No Orthopedic Surgery: Yes (bilateral knee surgery) - Immunization History Immunization Up to Date: Yes - Suicide/Smoking/Psychosocial Hx Smoking History: Unknown if ever smoked Have you smoked in the past 12 months: No Hx Alcohol Use: No Drug/Substance Use Hx: No Substance Use Type: None Hx Substance Use Treatment: No Review of Systems - Review of Systems Able to Perform ROS?: No (noncommunicative) *Physical Exam - Vital Signs Last Vital Signs Temp Pulse Resp BP Pulse Ox 99.1 F 87 20 115/50 L 99 08/07/18 17:40 08/07/18 17:40 08/07/18 17:40 08/07/18 17:40 08/07/18 17:40 - Physical Exam Comments: 08/07/18 18:23 Left second toe skin color and temperature are normal. There is a callus over the PIPJ on the dorsum of the toe there is severe valgus deformities of the toes. Unable to evaluate sensory and motor Medical Decision Making - Medical Decision Making 08/07/18 18:24 No infectious process appears to be happening in the left second toe. I will refer the patient to podiatry for further evaluation and treatment options. *DC/Admit/Observation/Transfer Diagnosis at time of Disposition: Toe deformity, [place] of toe - Discharge Dispostion Disposition: HOME Condition at time of disposition: Stable Decision to Admit order: No - Referrals Referrals: Lucas Turner MD [Primary Care Provider] - Beto Nuno DPM [Non Staff, Medical] - Aneudy Ríos MD [Non Staff, Medical] - John Barclay MD [Staff Physician] - Yuliet Machado DPM [Non Staff, Medical] - Anthony Rabago MD [Non Staff, Medical] - Aneudy Cohn [Non Staff, Medical] - Michelle Sorensen MD [Non Staff, Medical] - Macy Paul MD [Non Staff, Medical] - Fidel Chua MD [Non Staff, Medical] - Itz Mao MD [Staff Physician] - - Patient Instructions Additional Instructions: Please follow-up with podiatry in 1-2 days for further evaluation and treatment options and return to the emergency room should symptoms worsen or go unresolved. - Post Discharge Activity
== END 2018-08-07 18:44 | disposition home or self-care (01) ==
LOC: JERFT 16:43
DX: M20.5X2 Other deformities of toe(s) (acquired), left foot (principal); L84 Corns and callosities; G20 Parkinson's disease; F32.9 Major depressive disorder, single episode, unspecified
CPT/HCPCS: 99281-25

== ENCOUNTER 2019-02-03 17:37 | Inpatient (IN) | payer MEDICARE, OTHER ==
[2019-02-03 18:30] VITALS: BMI 28.3
[2019-02-03] MEDS ORDERED: ACETAMINOPHEN 1000 MG/100 ML VIAL (NON FORMULARY) IVPB ONE (18:36)
[2019-02-03 18:52] LABS: EPI CELLS 0.3 /HPF (0-5/HPF); HYALINE CASTS 34 /lpf (0-8); PH,URINE 5.5 (5.0-8.0); URINE APPEARANCE CLOUDY; URINE BILIRUBIN 1+ (NEGATIVE); URINE COLOR DK YELLOW; URINE GLUCOSE (UA) NEGATIVE (NEGATIVE); URINE KETONE TRACE (NEGATIVE); URINE LEUK ESTERASE 1+ (NEGATIVE); URINE NITRITE POSITIVE (NEGATIVE); URINE PROTEIN 1+ (NEGATIVE); URINE RBC 0 /hpf (0-4); URINE WBC 36 /hpf (0-5)
[2019-02-03] MEDS ORDERED: ACETAMINOPHEN INJECTION 100 ML IVPB ONE (18:57)
[2019-02-03 19:05] LABS: URINE BACTERIA POSITIVE /hpf (NEGATIVE)
--- NOTE | 2019-02-03 19:07 | PDOC ---
History of Present Illness - General Chief Complaint: SIRS, Suspected/Possible Stated Complaint: POST CHOCKING Time Seen by Provider: 02/03/19 18:16 - History of Present Illness Initial Comments: 02/03/19 19:48 78 yo F PMH Parkinson's disease, arthritis, BIBEMS from home with fever. Patient is nonverbal at baseline, here with two sons. Sons report that she was seen last week by her primary care doctor, who wanted her to get a barium swallow study for potential dysphagia. Fever began yesterday night, reportedly 102F orally at home. Patient has had issues swallowing, appearing to choke when trying to swallow for months. Sons have noticed that she is very cold, but have not noted any change in her breathing or signs of pain. Unable to assess ROS. Past History - Past Medical History Allergies/Adverse Reactions: Allergies Allergy/AdvReac Type Severity Reaction Status Date / Time No Known Drug Allergies Allergy Verified 02/03/19 18:18 Home Medications: Ambulatory Orders Carbidopa/Levodopa [Carbidopa-Levodopa 25-250 Tab] 1 tab PO Q6H 10/06/16 Risperidone 1 mg PO HS 10/23/16 Vortioxetine Hydrobromide [Trintellix] 20 mg PO DAILY 10/31/17 Cardiac Disorders: No CVA: No COPD: No CHF: No Dementia: Yes (PARKINSONS) Diabetes: No GI Disorders: No Disorders: No HTN: No Hypercholesterolemia: No Liver Disease: No Psychiatric Problems: Yes (DEPRESSION) Seizures: No Thyroid Disease: No Other medical history: MULTIPLE MANTILLA TO LEGS - Surgical History Abdominal Surgery: No Appendectomy: No Cardiac Surgery: No Cholecystectomy: No Lung Surgery: No Neurologic Surgery: No Orthopedic Surgery: Yes (bilateral knee surgery) - Immunization History Immunization Up to Date: Yes - Psycho Social/Smoking Cessation Hx Smoking History: Never smoked Have you smoked in the past 12 months: No Hx Alcohol Use: No Drug/Substance Use Hx: No Substance Use Type: None Hx Substance Use Treatment: No Review of Systems - Review of Systems Able to Perform ROS?: No (nonverbal at baseline) Comments:: 02/03/19 19:52 Unable to assess 2/2 patient being nonverbal at baseline. *Physical Exam - Vital Signs Last Vital Signs Temp Pulse Resp BP Pulse Ox 102.4 F H 110 H 16 102/47 L 98 02/03/19 18:00 02/03/19 18:00 02/03/19 18:00 02/03/19 18:00 02/03/19 18:00 - Physical Exam Comments: 02/03/19 20:07 Gen: thin, appears distressed Neuro: nonverbal, moving limbs spontaneously, 5/5 strength, EOMI, PERRLA, noncooperative with cranial nerve exam HEENT: atraumatic, normocephalic, dry mucous membranes Neck: trachea midline, supple CV: tachycardic, regular rhythm, no murmurs, rubs, or gallops Pulm: CTA b/l, no wheezing Abd: soft, non-distended, non-tender MSK: full ROM, intact pulses Extr: no edema, no deformities Skin: warm, dry ED Treatment Course - LABORATORY CBC & Chemistry Diagram: 02/03/19 19:00 02/03/19 19:00 - ADDITIONAL ORDERS Additional order review: Laboratory Results 02/03/19 18:37 Urine Color Dk yellow Urine Appearance Cloudy Urine pH 5.5 Ur Specific [place] 1.024 Urine Protein 1+ H Urine Glucose (UA) Negative Urine Ketones Trace H Urine Blood Negative Urine Nitrite Positive H Urine Bilirubin 1+ H Urine Urobilinogen 2.0 H Ur Leukocyte Esterase 1+ H Urine WBC (Auto) 36 Urine RBC (Auto) 0 Urine Casts (Auto) 34 U Epithel Cells (Auto) 0.3 Urine Bacteria (Auto) Positive - Medications Given in the ED: ED Medications Discontinued Medications Generic Name Dose Route Start Last Admin Trade Name Freq PRN Reason Stop Dose Admin Acetaminophen 1,000 mg 02/03/19 18:36 02/03/19 19:05 Ofirmev Injection - IVPB 02/03/19 18:37 1,000 mg ONCE ONE Administration Medical Decision Making - Medical Decision Making 02/03/19 19:54 Concern for sepsis. Potential sources include urine, blood, lungs. - sepsis orders - 1L NS - Ofirmev - Vanc/piptazo - admit 02/03/19 20:06 Trop 0.37. EKG normal sinus at 102 bpm. CXR without acute pathology, unchanged from prior. Will admit, f/u CT head. 02/03/19 20:50 CT head with mild microvascular ischemic and age-related changes. Discharge - Discharge Information Problems reviewed: Yes Clinical Impression/Diagnosis: Sepsis, Elevated troponin I level, UTI (urinary tract infection) - Follow up/Referral Referrals: Lucas Turner MD [Primary Care Provider] - - Patient Discharge Instructions - Post Discharge Activity
[2019-02-03 19:08] LABS: BASO % 0.1 % (0-2.0); EOS % 1.2 % (0-4.5); HEMATOCRIT 31.8 % (32.4-45.2); HEMOGLOBIN 11.2 GM/dL (10.7-15.3); LYMPH % 4.6 % (8-40); MCH 32.3 pg (25.7-33.7); MCHC 35.3 g/dl (32.0-36.0); MEAN CELL VOLUME 91.5 fl (80-96); MEAN PLT VOLUME 8.5 fl (7.5-11.1); MONO % 6.2 % (3.8-10.2); NEUT % 87.9 % (42.8-82.8); PLATELET COUNT 127 K/MM3 (134-434); RBC 3.48 M/mm3 (3.60-5.2); RDW 15.4 % (11.6-15.6); WHITE BLOOD COUNT 7.8 K/mm3 (4.0-10.0)
[2019-02-03] MEDS ORDERED: VANCOMYCIN 1 GM in D5W (PRE-DOCKED) 1,000 MG/250 ML IVPB ONE (19:08)
[2019-02-03] MEDS ORDERED: PIPERACILLIN/TAZOB 3.375 GM 3.375 GM in DEXTROSE 5%-WATER - 50 ML IVPB ONE (19:10)
[2019-02-03] MEDS ORDERED: VANCOMYCIN 1 GRAM (PRE-DOCKED) 1,000 MG/250 ML BAG IVPB ONE (19:11)
[2019-02-03 19:14] LABS: VENOUS PC02 35.5 mmHg (38-52); VENOUS PH 7.46 (7.31-7.41)
[2019-02-03 19:15] LABS: VENOUS PO2 < 49 mmHg (28-48)
[2019-02-03 19:21] LABS: INR 1.28 (0.83-1.09); PROTHROMBIN TIME (PATIENT) 15.1 SEC (9.7-13.0)
[2019-02-03 19:23] LABS: ACTIVATED PTT 34.1 SECONDS (25.2-36.5)
[2019-02-03 19:38] LABS: ALBUMIN 3.2 g/dl (3.4-5.0); BLOOD UREA NITROGEN 25.4 mg/dL (7-18); CALCIUM 7.9 mg/dL (8.5-10.1); CREATININE 0.7 mg/dL (0.55-1.3); POTASSIUM 3.8 mmol/L (3.5-5.1)
[2019-02-03] MEDS ORDERED: SODIUM CHLORIDE 0.9% 1000 ML INFUS.BAG IV ONE (19:53)
[2019-02-03] MEDS ORDERED: PIPERACILLIN/TAZOB 3.375 GM 3.375 GM/50 ML BAG IVPB ONE (20:51)
[2019-02-03] MEDS ORDERED: SODIUM CHLORIDE 0.9% 500 ML INFUS.BAG IV ONE (20:59)
--- NOTE | 2019-02-03 21:06 | PDOC ---
Documentation entered by Jeffrey Paz SCRIBE, acting as scribe for David Adame MD. David Adame MD: This documentation has been prepared by the Jackson rojas Daniel, SCRIBE, under my direction and personally reviewed by me in its entirety. I confirm that the documentation accurately reflects all work, treatment, procedures, and medical decision making performed by me. Attending Attestation - Resident Resident Name: Jordan Casanova - ED Attending Attestation I have performed the following: I have examined & evaluated the patient, The case was reviewed & discussed with the resident, I agree w/resident's findings & plan, Exceptions are as noted - HPI HPI: 02/03/19 19:41 The patient is a 78 year old female with a past medical history of Parkinsons disease here today for evaluation of fever. The patients family reports that earlier today the patient was choking and had to have the heimlich performed on her. Family reports that the family developed a fever after this. They also note that the patient saw her PCP last week who recommended a barium swallow for dysphagia. Patient is non verbal at baseline and was unable to provide history. Allergies: NKDA - Physicial Exam PE: 02/03/19 20:26 Vitals: Triage vital signs reviewed General Appearance: +thin. No acute distress, well developed Head: Atraumatic Eyes: Pupils equal reactive round, extraocular movement intact Ears: TM's normal bilaterally Nose: Nares patent bilaterally; no nasal congestion Throat: mucous membranes moist Neck: Supple; No nuchal rigidity Chest Wall: Nontender Cardiac: Regular rate and rhythm, no murmurs, no rubs, no gallops Lungs: Clear to auscultation bilateral, good air movement bilaterally Extremities: Full range of motion to all extremities, no cyanosis, clubbing, or edema Skin: Warm and dry, no rashes or lesions, no rash, no petechiae Neuro: +nonverbal. Cranial Nerves 2-12 grossly intact, Strength intact to all extremities, Sensation intact to all extremities - Medical Decision Making 02/03/19 20:27 The patient is a 78 year old female with a past medical history of Parkinsons disease here today for evaluation of fever. Laboratory analysis notable for urinary tract infection I am also concerned given the history there may be a concomitant early aspiration pneumonia although the chest x-ray at this time does not appear to demonstrate such. Patient has been covered with broad-spectrum antibiotics and will be admitted to the hospital for further management. 02/03/19 21:06
--- NOTE | 2019-02-03 22:05 | PN ---
Teaching Attending Note Name of Resident: David Issa ATTENDING PHYSICIAN STATEMENT I saw and evaluated the patient. I reviewed the resident's note and discussed the case with the resident. I agree with the resident's findings and plan as documented. SUBJECTIVE: 77 yo female with PMH Parkinsons (15 yrs) and depression brought in by ambulance for fever and choking episode which occurred just prior to admission. Patient choked on cut up soft tortillas. In the emergency room patient was found to have a high fever 102.4 Fahrenheit and had tachycardia up to 110 upon initial presentation. Was treated empirically with vancomycin and Zosyn in the ER. Patient was nonverbal when I assessed her and was not very cooperative with the physical exam. OBJECTIVE: Last Vital Signs Temp Pulse Resp BP Pulse Ox 100.1 F H 77 15 104/45 L 100 02/03/19 20:59 02/03/19 21:38 02/03/19 21:38 02/03/19 21:38 02/03/19 21:38 GENERAL: Elderly, frail, not in acute distress,Noted to be shivering HEENT: Normocephalic, atraumatic. PERRLA, EOMI. No conjunctival pallor. Sclera are non- icteric. Moist mucous membranes. Oropharynx is clear. NECK: Supple. Full ROM. No JVD. Carotid pulses 2+ and symmetric, without bruits. No thyromegaly. No lymphadenopathy. CARDIOVASCULAR: Regular rate and rhythm. No murmurs, rubs, or gallops. Distal pulses are 2+ and symmetric. PULMONARY: No evidence of respiratory distress. Lungs clear to auscultation bilaterally. No wheezing, rales or rhonchi. ABDOMINAL: Soft. Non-tender. Non-distended. No rebound or guarding. No organomegaly. Normoactive bowel sounds. MUSCULOSKELETAL Normal range of motion at all joints. No bony deformities or tenderness. No CVA tenderness. EXTREMITIES: No cyanosis. No clubbing. No edema. No calf tenderness. SKIN: Skin is intact as per nursing, no decubitus ulcers reported Abnormal Lab Results 02/03/19 02/03/19 02/03/19 18:37 19:00 19:00 RBC 3.48 L Hct 31.8 L Plt Count 127 L Neutrophils % 87.9 H D Lymphocytes % 4.6 L D PT with INR INR VBG pH POC VBG pCO2 POC VBG pO2 Sodium Anion Gap BUN Random Glucose Calcium ALT Troponin I 0.37 H Total Protein Albumin Urine Protein 1+ H Urine Ketones Trace H Urine Nitrite Positive H Urine Bilirubin 1+ H Urine Urobilinogen 2.0 H Ur Leukocyte Esterase 1+ H 02/03/19 02/03/19 02/03/19 19:00 19:00 19:00 RBC Hct Plt Count Neutrophils % Lymphocytes % PT with INR 15.10 H INR 1.28 H VBG pH 7.46 H POC VBG pCO2 35.5 L POC VBG pO2 < 49 H Sodium 133 L Anion Gap 7 L BUN 25.4 H Random Glucose 138 H Calcium 7.9 L ALT 7 L Troponin I Total Protein 6.0 L Albumin 3.2 L Urine Protein Urine Ketones Urine Nitrite Urine Bilirubin Urine Urobilinogen Ur Leukocyte Esterase Imaging reviewed EKG was negative for any ischemic changes ASSESSMENT AND PLAN: 78-year-old woman with sepsis. Source of infection may be secondary to aspiration pneumonia Or UTI. Suspect possible aspiration as it was noted to be choking just prior to admission. Aspiration precautions Blood cultures Monitor vital signs closely Urine culture ID consult IV fluid hydration Supplemental oxygen via nasal cannula as needed Continue Zosyn empirically for possible UTI versus aspiration pneumonia N.p.o. for now, speech and swallow eval in the morning, Barium swallow study #Parkinsonism Continue with Sinemet #Elevated troponinno ischemic changes seen on EKG. May be secondary to sepsis and demand ischemia Trend troponin Monitor on environmental monitoring specialist #Thrombocytopenia Monitor platelets carefully #DVT prophylaxisheparin subcutaneously
--- NOTE | 2019-02-03 22:35 | HP ---
CHIEF COMPLAINT: Fever PCP: Jairo HISTORY OF PRESENT ILLNESS: The patient is a 78 yo f w/ PMH parkinsons, arthritis who was BIBEMS by her two sons because she had fevers at home. The patient is nonverbal at baseline and the history was obtained from the EMR and from her two sons at bedside. Per the sons, the patient has been having intermittent fevers at home for the last week ranging from 100.0 to 102. In addition to this, the patient has also been having progressively worsening dysphagia for the past few months. They took the patient to her PCP on Tuesday, who prescribed a modified barium swallow. Today , however, the patient's sons stated that she was having such a hard time swallowing that they decided that she needed to be evaluated. ER course was notable for: (1) Rectal temp of 102.4 (2) UA w/ positive nitrates, 1+ leuk esterase, 36 WBC (3) CXR unremarkable (4) mild troponemia .37 Recent Travel: none PAST MEDICAL HISTORY: se HPI PAST SURGICAL HISTORY: Social History: Smoking: denies Alcohol: denies Drugs: denies Allergies No Known Drug Allergies Allergy (Verified 02/03/19 18:18) HOME MEDICATIONS: Home Medications Medication Instructions Recorded Carbidopa/Levodopa 1 tab PO Q6H 10/06/16 [Carbidopa-Levodopa 25-250 Tab] Risperidone 1 mg PO HS 10/23/16 Vortioxetine Hydrobromide 20 mg PO DAILY 10/31/17 [Trintellix] REVIEW OF SYSTEMS unable to obtain 2/2 functional status PHYSICAL EXAMINATION Vital Signs - 24 hr 02/03/19 02/03/19 02/03/19 18:00 19:30 20:47 Temperature 102.4 F H Pulse Rate 110 H Pulse Rate [ 90 82 Radial] Respiratory 16 18 17 Rate Blood Pressure 102/47 L Blood Pressure 102/44 L [Left Arm] O2 Sat by Pulse 98 100 100 Oximetry (%) 02/03/19 02/03/19 02/03/19 20:59 21:22 21:38 Temperature 100.1 F H Pulse Rate Pulse Rate [ 77 Radial] Respiratory 15 Rate Blood Pressure Blood Pressure 96/44 L 104/42 L 104/45 L [Left Arm] O2 Sat by Pulse 100 Oximetry (%) GENERAL: Awake, alert, and fully oriented, in no acute distress. HEAD: Normal with no signs of trauma. EYES: Pupils equal, round and reactive to light, extraocular movements intact, sclera anicteric, conjunctiva clear. No lid lag. LUNGS: Breath sounds equal, clear to auscultation bilaterally. No wheezes, and no crackles. No accessory muscle use. HEART: Regular rate and rhythm, normal S1 and S2 without murmur, rub or gallop. ABDOMEN: Soft, nontender, not distended, normoactive bowel sounds, no guarding, no rebound, no masses. No hepatomegaly or splenomegaly. LOWER EXTREMITIES: 2+ pulses, warm, well-perfused. No calf tenderness. No peripheral edema. NEUROLOGICAL: unable to obtain as the patient unable to follow commands. Laboratory Results - last 24 hr 02/03/19 02/03/19 02/03/19 18:37 19:00 19:00 WBC 7.8 RBC 3.48 L Hgb 11.2 Hct 31.8 L MCV 91.5 MCH 32.3 MCHC 35.3 RDW 15.4 Plt Count 127 L MPV 8.5 Absolute Neuts (auto) 6.8 Neutrophils % 87.9 H D Lymphocytes % 4.6 L D Monocytes % 6.2 Eosinophils % 1.2 Basophils % 0.1 Nucleated RBC % 0 PT with INR INR PTT (Actin FS) VBG pH POC VBG pCO2 POC VBG pO2 VBG HCO3 VBG O2 Sat (Bertha) VBG Base Excess Sodium Potassium Chloride Carbon Dioxide Anion Gap BUN Creatinine Est GFR (CKD-EPI)AfAm Est GFR (CKD-EPI)NonAf Random Glucose Lactic Acid Calcium Total Bilirubin AST ALT Alkaline Phosphatase Troponin I 0.37 H Total Protein Albumin Urine Color Dk yellow Urine Appearance Cloudy Urine pH 5.5 Ur Specific [place] 1.024 Urine Protein 1+ H Urine Glucose (UA) Negative Urine Ketones Trace H Urine Blood Negative Urine Nitrite Positive H Urine Bilirubin 1+ H Urine Urobilinogen 2.0 H Ur Leukocyte Esterase 1+ H Urine WBC (Auto) 36 Urine RBC (Auto) 0 Urine Casts (Auto) 34 U Epithel Cells (Auto) 0.3 Urine Bacteria (Auto) Positive 02/03/19 02/03/19 02/03/19 19:00 19:00 19:00 WBC RBC Hgb Hct MCV MCH MCHC RDW Plt Count MPV Absolute Neuts (auto) Neutrophils % Lymphocytes % Monocytes % Eosinophils % Basophils % Nucleated RBC % PT with INR INR PTT (Actin FS) VBG pH 7.46 H POC VBG pCO2 35.5 L POC VBG pO2 < 49 H VBG HCO3 25.0 VBG O2 Sat (Bertha) 77.5 VBG Base Excess 2.0 Sodium 133 L Potassium 3.8 Chloride 102 Carbon Dioxide 24 Anion Gap 7 L BUN 25.4 H Creatinine 0.7 Est GFR (CKD-EPI)AfAm 96.18 Est GFR (CKD-EPI)NonAf 82.99 Random Glucose 138 H Lactic Acid 1.0 Calcium 7.9 L Total Bilirubin 1.0 AST 31 ALT 7 L Alkaline Phosphatase 77 Troponin I Total Protein 6.0 L Albumin 3.2 L Urine Color Urine Appearance Urine pH Ur Specific [place] Urine Protein Urine Glucose (UA) Urine Ketones Urine Blood Urine Nitrite Urine Bilirubin Urine Urobilinogen Ur Leukocyte Esterase Urine WBC (Auto) Urine RBC (Auto) Urine Casts (Auto) U Epithel Cells (Auto) Urine Bacteria (Auto) 02/03/19 19:00 WBC RBC Hgb Hct MCV MCH MCHC RDW Plt Count MPV Absolute Neuts (auto) Neutrophils % Lymphocytes % Monocytes % Eosinophils % Basophils % Nucleated RBC % PT with INR 15.10 H INR 1.28 H PTT (Actin FS) 34.1 VBG pH POC VBG pCO2 POC VBG pO2 VBG HCO3 VBG O2 Sat (Bertha) VBG Base Excess Sodium Potassium Chloride Carbon Dioxide Anion Gap BUN Creatinine Est GFR (CKD-EPI)AfAm Est GFR (CKD-EPI)NonAf Random Glucose Lactic Acid Calcium Total Bilirubin AST ALT Alkaline Phosphatase Troponin I Total Protein Albumin Urine Color Urine Appearance Urine pH Ur Specific [place] Urine Protein Urine Glucose (UA) Urine Ketones Urine Blood Urine Nitrite Urine Bilirubin Urine Urobilinogen Ur Leukocyte Esterase Urine WBC (Auto) Urine RBC (Auto) Urine Casts (Auto) U Epithel Cells (Auto) Urine Bacteria (Auto) ASSESSMENT/PLAN: The patient is a 78 yo f w/ PMH parkinsons, arthritis who was BIBEMS by her two sons because she had fevers at home and dysphagia. She was found to have a UTI #fevers at home likely 2/2 UTI r/o PNA -UA positive in ED -febrile -no white count on admission -s/p vanc/zosyn in ED -patient received several liters of fluid in the ED -will continue abx with zosyn monotherapy -ID consult -monitor BP -BCX, Ucx pending -will start NS @ 75 x1 bag for maintainence fluids #troponemia -possibly demand 2/2 sepsis -EKG unchanged -tend trop and EKG q6h until peak documented -tele admit #FEN -NS @ 75 -lytes WNL, replete PRN -NPO for now #dispo -admit tele Visit type - Emergency Visit Emergency Visit: Yes ED Registration Date: 02/03/19 Care time: The patient presented to the Emergency Department on the above date and was hospitalized for further evaluation of their emergent condition. - New Patient This patient is new to me today: Yes Date on this admission: 02/04/19 - Critical Care Critical Care patient: No ATTENDING PHYSICIAN STATEMENT I saw and evaluated the patient. I reviewed the resident's note and discussed the case with the resident. I agree with the resident's findings and plan as documented. SUBJECTIVE: OBJECTIVE: ASSESSMENT AND PLAN:
[2019-02-03] MEDS ORDERED: SODIUM CHLORIDE 1,000 ML IV SCH (22:45)
[2019-02-04] MEDS ORDERED: PT OWN MED DRAWER 7, Y5N ONE ×3 (00:47→21:19)
[2019-02-04] MEDS ORDERED: PIPERACILLIN/TAZOBACTAM 2.25 GM VIAL IVPB ONE ×2 (01:22→08:48)
[2019-02-04] MEDS ORDERED: DEXTROSE 5%-WATER - 50 ML IVPB ONE ×3 (01:23→12:40)
[2019-02-04] MEDS: CARBIDOPA/LEVODOPA 25/250 TABLET (FP) PO SCH ×4 (01:41→21:46)
[2019-02-04] MEDS: PIPERACILLIN/TAZOB 2.25 GM 2.25 GM in DEXTROSE 5%-WATER - 50 ML IVPB SCH ×2 (01:41→08:59)
[2019-02-04] MEDS ORDERED: HEPARIN NA (PORCINE) 5,000 UNITS/ML 1ML VIAL SQ SCH (02:00)
[2019-02-04] MEDS: HEPARIN NA (PORCINE) 5,000 UNITS/ML 1ML VIAL SQ SCH ×3 (05:54→21:46)
[2019-02-04 06:17] LABS: HEMATOCRIT 27.6 % (32.4-45.2); HEMOGLOBIN 10.1 GM/dL (10.7-15.3); MCH 33.2 pg (25.7-33.7); MCHC 36.7 g/dl (32.0-36.0); MEAN CELL VOLUME 90.5 fl (80-96); MEAN PLT VOLUME 8.2 fl (7.5-11.1); PLATELET COUNT 100 K/MM3 (134-434); RBC 3.05 M/mm3 (3.60-5.2); RDW 15.1 % (11.6-15.6)
[2019-02-04 07:28] LABS: ALBUMIN 2.6 g/dl (3.4-5.0); BLOOD UREA NITROGEN 17.3 mg/dL (7-18); CALCIUM 7.2 mg/dL (8.5-10.1); CREATININE 0.6 mg/dL (0.55-1.3); PHOSPHOROUS 2.6 mg/dL (2.5-4.9); POTASSIUM 3.8 mmol/L (3.5-5.1)
[2019-02-04] MEDS ORDERED: ACETAMINOPHEN 1000 MG/100 ML VIAL (NON FORMULARY) IVPB ONE (09:50)
[2019-02-04] MEDS ORDERED: PATIENT'S OWN MEDICATION (NON-FORMULARY) (Vortioxetine Hydrobromide [Trintellix] 20 MG) PO SCH (10:00)
[2019-02-04] MEDS: SODIUM CHLORIDE 1,000 ML IV SCH (10:00)
--- NOTE | 2019-02-04 12:08 | PN ---
Progress Note (short form) - Note Progress Note: ID consult dictated imp/reccd 78 yo female with parkinsons disease admitted with fevers intermittent for last several weeks at home also with worsening dysphagia, has been choking and coughing when she eats at home ambulates with assistance per the son has [place] for 8 hours a day +pyuria fevers severe parkinsons disease ?uti ?aspiration rocephin f/u cultures iv hydration swallowing evaluation if fevers persist and cultures are negative will need ct imaging chest/ab/ pelvis Problem List - Problems (1) Fever Code(s): R50.9 - FEVER, UNSPECIFIED (2) UTI (urinary tract infection) Code(s): N39.0 - URINARY TRACT INFECTION, SITE NOT SPECIFIED (3) Parkinson disease Code(s): G20 - PARKINSON'S DISEASE
[2019-02-04] MEDS ORDERED: cefTRIAXone SODIUM 1 GM VIAL ONE (12:40)
[2019-02-04] MEDS: CEFTRIAXONE 1 GM in DEXTROSE 5%-WATER - 50 ML IVPB SCH (12:42)
--- NOTE | 2019-02-04 13:40 | CONS ---
DATE OF CONSULTATION: DATE OF DICTATION: 02/04/2019 REQUESTED BY: Hospitalist service. This is a 78-year-old woman who lives at home. She has history of Parkinson disease. She is followed by Dr. Turner as an outpatient. She is admitted from home with 2 to 3 weeks of intermittent fevers at home. She has severe Parkinson disease and has had progressively worsening dysphagia. She is coughing when she eats, and choking. They have been mainly giving her yogurt and chopped meats. She has had a lot of weight loss. She was seen by Dr. Turner on Tuesday and a swallowing study was recommended. She has not had a bowel movement in at least a week. Per the sons who take care of her and speak to her in [place] [employer], they are present at the bedside, there is no history of any pain. Apparently they walk her with assistance to the bathroom. She has no history of bed sores. She has a home health aide for 8 hours a day at home. In the emergency room, she had a rectal temperature of 102.4, a UA with 36 white cells and 1+ leukocyte esterase, a normal chest x-ray. She was noted, as well, to have an elevated troponin and she is saturating 98% on room air. She received vancomycin and Zosyn in the emergency room, and I am asked to see her for further evaluation of fever. She is originally from [place]. She has not traveled since coming to this country about 20 years ago. She lives with her 2 sons and one of her son's children and family. She has a past history of MRSA infection of her toe and was treated with IV vancomycin for 6 weeks in 2017. Surgical history is not known. She has history of Parkinson's and arthritis. SOCIAL HISTORY: There is no history of cigarette, alcohol, or substance use. She was born in [place]. She has no known drug allergies. She takes carbidopa/levodopa, risperidone, and Trintellix at home. Per the sons, they are still giving her medicines at night and she is able to swallow them. Review of systems is notable for constipation and for weight loss and intermittent fever. PHYSICAL EXAMINATION: Vital Signs: Current temperature is 101.3 rectally, T-max was 102.4. Pulse 107. Blood pressure 116/49. Respiratory rate 18. She is saturating 98% on room air. General: She is a thin woman in no acute distress. She is stiff all over from her head to her toe. HEENT: She is barely able to open her mouth. She has dry mucosa. There is no thrush. Lungs: Her lungs have diminished breath sounds at the bases but are clear. Heart: Regular rate and rhythm. Abdomen: Soft, nontender. She appears to have suprapubic fullness, which I suspect may be her bladder. Extremities: Without edema. Skin: She has no skin breakdown or ulcers. Her white count is 6000, hemoglobin is 10.1, platelets 100,000. BUN 17, creatinine 0.6; on admission, were BUN 25 and creatinine 0.7. Albumin is 2.6. Troponin is 0.22. Urinalysis with 1+ leukocytes and 36 white cells. Cultures are pending. She had a MRSA screen in 2018 that was negative. She had a chest x-ray done in the ER that is clear. In summary, this is an elderly woman with intermittent fever at home, with definitely symptoms of dysphagia. She has been unable to eat, with choking and coughing reported. She has evidence of UTI in the setting of intermittent fevers, and she has severe Parkinson disease. Would treat her at this time with ceftriaxone. Would check a bladder scan to make sure she is not retaining urine. Would follow up her cultures. IV hydration. Swallowing evaluation. If the fevers persist and cultures are negative, she will need CT imaging with a chest, abdomen and pelvis, as she cannot give us very much history. Further recommendations to follow. EVETTE VANG M.D. NICHOLAS/[id number]
[2019-02-04] MEDS ORDERED: BISACODYL 10 MG SUPP.RECT RC ONE (15:06)
--- NOTE | 2019-02-04 15:13 | PN ---
Progress Note (short form) - Note Progress Note: Subjective: No events over night . she shakes her head ' no " for pain. Objective: Last Vital Signs Temp Pulse Resp BP Pulse Ox 100.1 F H 107 H 18 116/49 L 98 02/04/19 12:56 02/04/19 09:03 02/04/19 09:03 02/04/19 09:03 02/04/19 10:00 Laboratory Results - last 24 hr 02/03/19 02/03/19 02/03/19 18:37 19:00 19:00 WBC 7.8 RBC 3.48 L Hgb 11.2 Hct 31.8 L MCV 91.5 MCH 32.3 MCHC 35.3 RDW 15.4 Plt Count 127 L MPV 8.5 Absolute Neuts (auto) 6.8 Neutrophils % 87.9 H D Lymphocytes % 4.6 L D Monocytes % 6.2 Eosinophils % 1.2 Basophils % 0.1 Nucleated RBC % 0 PT with INR INR PTT (Actin FS) VBG pH POC VBG pCO2 POC VBG pO2 VBG HCO3 VBG O2 Sat (Bertha) VBG Base Excess Sodium Potassium Chloride Carbon Dioxide Anion Gap BUN Creatinine Est GFR (CKD-EPI)AfAm Est GFR (CKD-EPI)NonAf Random Glucose Lactic Acid Calcium Phosphorus Magnesium Total Bilirubin AST ALT Alkaline Phosphatase Troponin I 0.37 H Total Protein Albumin Urine Color Dk yellow Urine Appearance Cloudy Urine pH 5.5 Ur Specific [place] 1.024 Urine Protein 1+ H Urine Glucose (UA) Negative Urine Ketones Trace H Urine Blood Negative Urine Nitrite Positive H Urine Bilirubin 1+ H Urine Urobilinogen 2.0 H Ur Leukocyte Esterase 1+ H Urine WBC (Auto) 36 Urine RBC (Auto) 0 Urine Casts (Auto) 34 U Epithel Cells (Auto) 0.3 Urine Bacteria (Auto) Positive 02/03/19 02/03/19 02/03/19 19:00 19:00 19:00 WBC RBC Hgb Hct MCV MCH MCHC RDW Plt Count MPV Absolute Neuts (auto) Neutrophils % Lymphocytes % Monocytes % Eosinophils % Basophils % Nucleated RBC % PT with INR INR PTT (Actin FS) VBG pH 7.46 H POC VBG pCO2 35.5 L POC VBG pO2 < 49 H VBG HCO3 25.0 VBG O2 Sat (Bertha) 77.5 VBG Base Excess 2.0 Sodium 133 L Potassium 3.8 Chloride 102 Carbon Dioxide 24 Anion Gap 7 L BUN 25.4 H Creatinine 0.7 Est GFR (CKD-EPI)AfAm 96.18 Est GFR (CKD-EPI)NonAf 82.99 Random Glucose 138 H Lactic Acid 1.0 Calcium 7.9 L Phosphorus Magnesium Total Bilirubin 1.0 AST 31 ALT 7 L Alkaline Phosphatase 77 Troponin I Total Protein 6.0 L Albumin 3.2 L Urine Color Urine Appearance Urine pH Ur Specific [place] Urine Protein Urine Glucose (UA) Urine Ketones Urine Blood Urine Nitrite Urine Bilirubin Urine Urobilinogen Ur Leukocyte Esterase Urine WBC (Auto) Urine RBC (Auto) Urine Casts (Auto) U Epithel Cells (Auto) Urine Bacteria (Auto) 02/03/19 02/04/19 02/04/19 19:00 01:15 05:33 WBC 6.0 RBC 3.05 L Hgb 10.1 L Hct 27.6 L MCV 90.5 MCH 33.2 MCHC 36.7 H RDW 15.1 Plt Count 100 L D MPV 8.2 Absolute Neuts (auto) Neutrophils % Lymphocytes % Monocytes % Eosinophils % Basophils % Nucleated RBC % PT with INR 15.10 H INR 1.28 H PTT (Actin FS) 34.1 VBG pH POC VBG pCO2 POC VBG pO2 VBG HCO3 VBG O2 Sat (Bertha) VBG Base Excess Sodium Potassium Chloride Carbon Dioxide Anion Gap BUN Creatinine Est GFR (CKD-EPI)AfAm Est GFR (CKD-EPI)NonAf Random Glucose Lactic Acid Calcium Phosphorus Magnesium Total Bilirubin AST ALT Alkaline Phosphatase Troponin I 0.22 H Total Protein Albumin Urine Color Urine Appearance Urine pH Ur Specific [place] Urine Protein Urine Glucose (UA) Urine Ketones Urine Blood Urine Nitrite Urine Bilirubin Urine Urobilinogen Ur Leukocyte Esterase Urine WBC (Auto) Urine RBC (Auto) Urine Casts (Auto) U Epithel Cells (Auto) Urine Bacteria (Auto) 02/04/19 05:33 WBC RBC Hgb Hct MCV MCH MCHC RDW Plt Count MPV Absolute Neuts (auto) Neutrophils % Lymphocytes % Monocytes % Eosinophils % Basophils % Nucleated RBC % PT with INR INR PTT (Actin FS) VBG pH POC VBG pCO2 POC VBG pO2 VBG HCO3 VBG O2 Sat (Bertha) VBG Base Excess Sodium 141 Potassium 3.8 Chloride 112 H Carbon Dioxide 24 Anion Gap 5 L BUN 17.3 Creatinine 0.6 Est GFR (CKD-EPI)AfAm 101.18 Est GFR (CKD-EPI)NonAf 87.30 Random Glucose 122 H Lactic Acid Calcium 7.2 L Phosphorus 2.6 Magnesium 2.0 Total Bilirubin 1.0 AST 39 H ALT 9 L Alkaline Phosphatase 60 Troponin I Total Protein 5.0 L Albumin 2.6 L Urine Color Urine Appearance Urine pH Ur Specific [place] Urine Protein Urine Glucose (UA) Urine Ketones Urine Blood Urine Nitrite Urine Bilirubin Urine Urobilinogen Ur Leukocyte Esterase Urine WBC (Auto) Urine RBC (Auto) Urine Casts (Auto) U Epithel Cells (Auto) Urine Bacteria (Auto) NAD, minimally verbal. MMM CV; RRR,no MRG Lungs: CTAB Abd: soft, NT, ND , NL BS Ext : deformed toes, thin legs , no edema . skin: no decub ulcers on sacral area. no fungal infection in toe webs Assessment/Plan: Unfortunate 78 y/o lady with h/o Parkinson's disease, and depression who presented with chocking episodes and fever and she was found to have sepsis . 1- Sepsis : likely due to UTI. can't r/ o aspiration PNA. - cxray reviewed. - follow urine cx - D/W ID , Ceftriaxone for now - follow blood cx - Agree with CT scans if no improvement 2- Dysphagia: - NPO for now - can give meds with apple sauce - speech and swallow eval 3- Parkinson's : cont CArbi-Levo 4- Elevated trop : likely demand ischemia. trop trended down 5- Depression: Family has to bring Vortioxetine from home DVT PX : heparin SQ Visit type - Emergency Visit Emergency Visit: Yes ED Registration Date: 02/03/19 Care time: The patient presented to the Emergency Department on the above date and was hospitalized for further evaluation of their emergent condition. - New Patient This patient is new to me today: Yes Date on this admission: 02/04/19 - Critical Care Critical Care patient: No
--- NOTE | 2019-02-04 17:00 | EKG ---
Test Reason : Blood Pressure : / mmHG Vent. Rate : 102 BPM Atrial Rate : 102 BPM P-R Int : 156 ms QRS Dur : 078 ms QT Int : 338 ms P-R-T Axes : 068 071 070 degrees QTc Int : 440 ms SINUS TACHYCARDIA CANNOT RULE OUT INFERIOR INFARCT , AGE UNDETERMINED WHEN COMPARED WITH ECG OF 30-OCT-2017 18:12, NO SIGNIFICANT CHANGE WAS FOUND Confirmed by NAYE VARGAS MD ([id number]) on 02/04/2019 5:00:22 PM Referred By: Confirmed By:NAYE VARGAS MD
[2019-02-04] MEDS ORDERED: PIPERACILLIN/TAZOB 2.25 GM 2.25 GM in DEXTROSE 5%-WATER - 50 ML IVPB SCH (18:00)
[2019-02-04] MEDS: risperiDONE 1 MG TABLET (FP) PO SCH (21:46)
[2019-02-05] MEDS: SODIUM CHLORIDE 1,000 ML IV SCH (00:30)
[2019-02-05] MEDS ORDERED: PT OWN MED DRAWER 7, Y5N ONE ×6 (06:32→21:09)
[2019-02-05] MEDS: HEPARIN NA (PORCINE) 5,000 UNITS/ML 1ML VIAL SQ SCH ×3 (06:34→21:14)
[2019-02-05] MEDS: CARBIDOPA/LEVODOPA 25/250 TABLET (FP) PO SCH ×3 (06:34→21:14)
[2019-02-05 07:39] LABS: BLOOD UREA NITROGEN 17.1 mg/dL (7-18); CALCIUM 7.4 mg/dL (8.5-10.1); CREATININE 0.5 mg/dL (0.55-1.3); MAGNESIUM 2.1 mg/dL (1.8-2.4); PHOSPHOROUS 2.4 mg/dL (2.5-4.9); POTASSIUM 3.3 mmol/L (3.5-5.1)
[2019-02-05 07:45] LABS: BASO % 0.1 % (0-2.0); EOS % 2.2 % (0-4.5); HEMATOCRIT 26.6 % (32.4-45.2); HEMOGLOBIN 9.5 GM/dL (10.7-15.3); LYMPH % 9.1 % (8-40); MCH 32.6 pg (25.7-33.7); MCHC 35.6 g/dl (32.0-36.0); MEAN CELL VOLUME 91.4 fl (80-96); MEAN PLT VOLUME 8.6 fl (7.5-11.1); MONO % 4.8 % (3.8-10.2); NEUT % 83.8 % (42.8-82.8); PLATELET COUNT 109 K/MM3 (134-434); RBC 2.91 M/mm3 (3.60-5.2); RDW 15.1 % (11.6-15.6); WHITE BLOOD COUNT 5.3 K/mm3 (4.0-10.0)
[2019-02-05] MEDS ORDERED: POTASSIUM CHLORIDE TABS 20 MEQ TABLET.ER (FP) PO ONE (09:00)
[2019-02-05] MEDS ORDERED: NAPH,MB-DB/K PH,MBDB POWDER PACKET PO ONE (09:00)
[2019-02-05] MEDS ORDERED: cefTRIAXone SODIUM 1 GM VIAL ONE (09:24)
[2019-02-05] MEDS ORDERED: DEXTROSE 5%-WATER - 50 ML IVPB ONE (09:24)
[2019-02-05] MEDS: TRINTELLIX 20 MG PO SCH (09:30)
[2019-02-05] MEDS: CEFTRIAXONE 1 GM in DEXTROSE 5%-WATER - 50 ML IVPB SCH (09:32)
[2019-02-05] MEDS: DEXTROSE 5%-NORMAL SALINE 1,000 ML IV SCH (10:35)
--- NOTE | 2019-02-05 10:52 | CONSULT ---
Admitting History and Physical - Primary Care Physician PCP: Asad Vaz - Admission History of Present Illness: Per EMR- 78 yo f w/ PMH parkinsons, arthritis who was BIBEMS by her two sons because she had fevers at home. The patient is nonverbal at baseline and the history was obtained from the EMR and from her two sons at bedside. Per the sons, the patient has been having intermittent fevers at home for the last week ranging from 100.0 to 102. In addition to this, the patient has also been having progressively worsening dysphagia for the past few months. They took the patient to her PCP on Tuesday, who prescribed a modified barium swallow. Today , however, the patient's sons stated that she was having such a hard time swallowing that they decided that she needed to be evaluated. MBS 10/31/17 - Reduced efficiency of mastication, but with brisk swallow (-) aspiration Rec-Chopped/thin Reported worsening dysphagia, has been choking and coughing when she eats at home ID imp-fevers severe parkinsons disease ?uti ?aspiration CXR (-). Selected Entries 02/03/19 02/03/19 02/03/19 18:00 20:59 23:30 Breakfast Temperature 102.4 F H 100.1 F H 98.7 F 02/03/19 02/04/19 02/04/19 23:45 06:00 09:03 Breakfast Temperature 98.4 F 98.1 F 101.3 F H 02/04/19 02/04/19 02/04/19 09:36 12:56 16:00 Breakfast NPO Temperature 100.1 F H 99.6 F 02/04/19 02/04/19 02/05/19 18:00 20:51 02:00 Breakfast Temperature 98.6 F 98.3 F 97.8 F 02/05/19 11:02 Breakfast NPO Temperature Laboratory Tests 02/03/19 02/04/19 02/05/19 19:00 05:33 06:15 WBC 7.8 6.0 5.3 History Source: Medical Record Limitations to Obtaining History: Clinical Condition - Past Medical History 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 - Smoking History Smoking history: Never smoked Have you smoked in the past 12 months: No - Alcohol/Substance Use Hx Alcohol Use: No History - Admission Reason For Visit: URINARY TRACT INFECTION ELEVATED TROPONIN I LEVEL - Diagnostics X-ray: Report Reviewed ((-)) CT Scan: Report Reviewed ((-)) Modified Barium Swallow: Report Reviewed ([facility] [place] - Reduced efficiency of mastication, but with brisk swallow (-) aspiration Rec-Chopped/thin) - General Mental Status: Awake and Alert, Able to Follow Commands, Intermittently Confused (suspected) Attention: Intact Ability to Follow Directions: Fair ([place]) Head/Neck Control: Fair - Hearing Hearing: Impaired Hearing Aide: No Speech Evaluation - Communication Primary Language: KHMER Communication: Yes: Simple Responses, Language Barrier Oral Expression Ability: Yes: Mild Impairment - Speech Production Able to Make Needs Known: Yes: Mildly Impaired Intelligibility: Yes: Mildly Impaired - Speech Characteristics Voice Loudness: Mildly Soft/Quiet Voice Pitch: Yes: Normal Voice Phonatory-based Quality: Yes: Dysphonia (intermittent) Speech Clarity: < 100% Nasal Resonance: Normal Articulation: Yes: Precise - Language/Auditory Comprehension Follows: Yes: 1 Stage Simple Commands Observation: Comprehends Conversational Speech: Yes - Swallow Evaluation/Bedside Assessment Current Nutritional Intake: NPO Oral Secretions: Yes: WFL Dentition: Yes: Adequate Facial Symmetry at Rest: Symmetrical Lingual Movement: Symmetric Lingual Speed of Movement: Normal Lingual Movement Strgth Against Opposition: Normal Velopharyngeal Movement: Normal Laryngeal Movement: Able to Palpate Rate of Intake: WFL Bolus Size: WFL Labial Seal: WFL Chewing: WFL (with trial cookie) Oral Prep Time: WFL A-P Transit: WFL Pocketing: None Timing of Swallow: Delayed Coughing/Throat Clear: No (3 oz water test) Change in Voice: No Recommendations - Speech Evaluation, Impression/Plan Impression: [place], asks to speak into her left ear. Language barrier but told me her name, occas single word responses. suspect confusion. Swallow is brisk with (-) 3 oz water test, tolerated puree/cookie. Possibly pt had infection at home with resulting Dyshagia, that has improved? Impulsive intake? - Dysphagia Impressions/Plan Dysphagia Impressions: Minimal Impairment, Risk of Aspiration *Silent aspiration: cannot be R/O at bedside Dysphagia Treatment Plan: Small Bites, Chin Tuck/Down, Clear Pocket Food, Trial Feedings, 1/2 tsp. at a time, Elevate HOB during feed Recommendations: Modified Barium Swallow (if cough, congestion, fever, or if suspected aspiration) - Recommendations Diet Consistency: Dysphagia Minced Medication Administration: Crushed with applesauce Liquids: Thin Liquids Supplement: Ensure, Magic Cup
--- NOTE | 2019-02-05 14:08 | PN ---
Physical Exam: SUBJECTIVE: Patient seen and examined. She reports umbilical abdominal pain. No acute events reported overnight. OBJECTIVE: Vital Signs Period Temp Pulse Resp BP Sys/Mcginnis Pulse Ox Last 24 Hr 97.6 F-99.6 F 84-95 16-18 104-131/42-65 96-98 GENERAL: The patient is awake, and alert, in no acute distress. HEAD: Normal with no signs of trauma. EYES: PERRL, extraocular movements intact, conjunctiva clear. ENT: Ears normal, nares patent, moist mucous membranes. NECK: Trachea midline, full range of motion, supple. LUNGS: Breath sounds equal, clear to auscultation bilaterally, no wheezes, no crackles, no accessory muscle use. HEART: Regular rate and rhythm, no murmur ABDOMEN: Soft, nondistended, normoactive bowel sounds, mild tenderness to palpation at umbilicus EXTREMITIES: Warm, well-perfused, no edema. Bilateral fingers and toes contracted. NEUROLOGICAL: Minimally verbal. PSYCH: Normal mood, normal affect. SKIN: Warm, dry, normal turgor, no rashes. Laboratory Results - last 24 hr 02/05/19 02/05/19 06:15 06:15 WBC 5.3 RBC 2.91 L Hgb 9.5 L Hct 26.6 L MCV 91.4 MCH 32.6 MCHC 35.6 RDW 15.1 Plt Count 109 L MPV 8.6 Absolute Neuts (auto) 4.4 Neutrophils % 83.8 H Lymphocytes % 9.1 D Monocytes % 4.8 Eosinophils % 2.2 D Basophils % 0.1 Nucleated RBC % 0 Sodium 143 Potassium 3.3 L Chloride 115 H Carbon Dioxide 22 Anion Gap 7 L BUN 17.1 Creatinine 0.5 L Est GFR (CKD-EPI)AfAm 107.44 Est GFR (CKD-EPI)NonAf 92.70 Random Glucose 65 L Calcium 7.4 L Phosphorus 2.4 L Magnesium 2.1 Active Medications Generic Name Dose Route Start Last Admin Trade Name Freq PRN Reason Stop Dose Admin Carbidopa/Levodopa 1 each 02/04/19 22:00 02/05/19 13:09 Sinemet 25/250 - PO 1 each TID KOREY Administration Heparin Sodium (Porcine) 5,000 unit 02/04/19 06:00 02/05/19 13:09 Heparin - SQ 5,000 unit TID KOREY Administration Ceftriaxone Sodium 1 gm/ 50 mls @ 100 mls/hr 02/04/19 12:30 02/05/19 09:32 Dextrose IVPB 100 mls/hr DAILY KOREY Administration Protocol Dextrose/Sodium Chloride 1,000 mls @ 75 mls/hr 02/05/19 10:00 02/05/19 10:35 D5-Ns - IV 75 mls/hr ASDIR KOREY Administration Trintellix 20mg 1 each 02/05/19 10:00 02/05/19 09:30 Patient's Own PO 1 each Medication (Non- DAILY KOREY Administration Formulary) Risperidone 1 mg 02/04/19 22:00 02/04/19 21:46 Risperdal - PO 1 mg HS KOREY Administration ASSESSMENT/PLAN: Ms. Quiroga is a 78y/o female with Parkinson's, depression, and arthritis who presents with fevers and persistent dysphagia. UA was nitrite and leuk esterase positive. Pt was admitted for possible sepsis 2/2 UTI. #sepsis likely 2/2 UTI Urine cx prelim report positive for proteus species. Blood cx prelim negative. -Continue ceftriaxone 1gm (day 2) -f/u final urine cx and blood cx reports -ID following- july switch to PO abx tomorrow #dysphagia Progressive over last several months. Pt was to have modified barium swallow as out pt prior to presentation. Swallow study at bedside today. Unlikely pt has aspirated. -chopped diet with thin liquids #normocytic anemia Hb 11.2-->9.5. MCV 91.4. -monitor CBC #hypokalemia 3.3 -KCl 40meq x 1 -repeat BMP tomorrow #hypophosphatemia 2.4. -Na Phos x 1 -repeat lab tomorrow #depression -risperidone 1mg QHS -Trintellix 20mg (pt's own med) #Parkinson's disease -continue home Sinemet DVT Ppx heparin FEN D5NS 75mL/hr monitor K and Phos chopped diet Visit type - Emergency Visit Emergency Visit: Yes ED Registration Date: 02/03/19 Care time: The patient presented to the Emergency Department on the above date and was hospitalized for further evaluation of their emergent condition. - New Patient This patient is new to me today: Yes Date on this admission: 02/05/19 - Critical Care Critical Care patient: No - Discharge Referral Referred to [facility] Med P.C.: No ATTENDING PHYSICIAN STATEMENT I saw and evaluated the patient. I reviewed the resident's note and discussed the case with the resident. I agree with the resident's findings and plan as documented. SUBJECTIVE: OBJECTIVE: ASSESSMENT AND PLAN:
--- NOTE | 2019-02-05 14:58 | PN ---
Progress Note (short form) - Note Progress Note: afebrile more alert Vital Signs Period Temp Pulse Resp BP Sys/Mcginnis Pulse Ox Last 24 Hr 97.6 F-99.6 F 84-95 16-18 104-131/42-65 96-98 cor-rrr lungs clear abd soft,nt ext no edema CBC, BMP 02/05/19 06:15 02/05/19 06:15 Microbiology 02/03/19 18:37 Urine - Urine - Catheterized Urine Culture - Preliminary Proteus Species 02/03/19 19:00 Blood - Peripheral Venous Blood Culture - Preliminary NO GROWTH OBTAINED AFTER 24 HOURS, INCUBATION TO CONTINUE FOR 4 DAYS. 02/03/19 19:00 Blood - Peripheral Venous Blood Culture - Preliminary NO GROWTH OBTAINED AFTER 24 HOURS, INCUBATION TO CONTINUE FOR 4 DAYS. a/p fevers severe parkinsons disease proteus UTI rocephin, hopefully po antibiotics in am d/w son at bedside Problem List - Problems (1) Fever Code(s): R50.9 - FEVER, UNSPECIFIED (2) UTI (urinary tract infection) Code(s): N39.0 - URINARY TRACT INFECTION, SITE NOT SPECIFIED (3) Parkinson disease Code(s): G20 - PARKINSON'S DISEASE
--- NOTE | 2019-02-05 18:26 | PN ---
Teaching Attending Note Name of Resident: Keisha Jurado ATTENDING PHYSICIAN STATEMENT I saw and evaluated the patient. I reviewed the resident's note and discussed the case with the resident. I agree with the resident's findings and plan as documented. SUBJECTIVE: pints at her abd where she has pain . unable to obtain other hx OBJECTIVE: NAD, minimally verbal. MMM CV; RRR,no MRG Lungs: CTAB Abd: soft, TTP in suprapubic area , ND , NL BS Ext :thin legs , no edema . Assessment/Plan: Unfortunate 78 y/o lady with h/o Parkinson's disease, and depression who presented with chocking episodes and fever and she was found to have sepsis . 1- Sepsis : improved . due to UTI -cont ceftriaxone - U cx noted. follow sensitivity - blood cx neg to date 2- Dysphagia: - appreciate Speech help. minced diet with thins 3- Parkinson's : cont CArbi-Levo 4- Elevated trop : likely demand ischemia. trop trended down 5- Depression: cont Vortioxetine DVT PX : heparin SQ possible dc tomorrow
[2019-02-05] MEDS: risperiDONE 1 MG TABLET (FP) PO SCH (21:14)
[2019-02-06] MEDS: CARBIDOPA/LEVODOPA 25/250 TABLET (FP) PO SCH ×2 (05:48→13:29)
[2019-02-06] MEDS: HEPARIN NA (PORCINE) 5,000 UNITS/ML 1ML VIAL SQ SCH ×2 (05:48→13:29)
[2019-02-06 07:11] LABS: BASO % 0.2 % (0-2.0); EOS % 3.4 % (0-4.5); HEMATOCRIT 26.3 % (32.4-45.2); HEMOGLOBIN 9.2 GM/dL (10.7-15.3); LYMPH % 12.7 % (8-40); MCH 32.2 pg (25.7-33.7); MCHC 35.1 g/dl (32.0-36.0); MEAN CELL VOLUME 91.6 fl (80-96); MEAN PLT VOLUME 8.5 fl (7.5-11.1); NEUT % 77.7 % (42.8-82.8); PLATELET COUNT 126 K/MM3 (134-434); RBC 2.87 M/mm3 (3.60-5.2); RDW 15.1 % (11.6-15.6); WHITE BLOOD COUNT 4.1 K/mm3 (4.0-10.0)
[2019-02-06 07:58] LABS: ALBUMIN 2.3 g/dl (3.4-5.0); BILIRUBIN,TOTAL 0.6 mg/dL (0.2-1); BLOOD UREA NITROGEN 19.8 mg/dL (7-18); CALCIUM 7.5 mg/dL (8.5-10.1); CREATININE 0.5 mg/dL (0.55-1.3); MAGNESIUM 2.1 mg/dL (1.8-2.4); PHOSPHOROUS 1.9 mg/dL (2.5-4.9); POTASSIUM 3.6 mmol/L (3.5-5.1); TOT PROT 4.9 g/dl (6.4-8.2)
[2019-02-06] MEDS ORDERED: DEXTROSE 5%-WATER - 50 ML IVPB ONE (08:56)
[2019-02-06] MEDS ORDERED: cefTRIAXone SODIUM 1 GM VIAL ONE (08:56)
[2019-02-06] MEDS ORDERED: NAPH,MB-DB/K PH,MBDB POWDER PACKET PO ONE (09:00)
[2019-02-06] MEDS: TRINTELLIX 20 MG PO SCH (09:30)
[2019-02-06] MEDS: CEFTRIAXONE 1 GM in DEXTROSE 5%-WATER - 50 ML IVPB SCH (09:30)
[2019-02-06] MEDS: DEXTROSE 5%-NORMAL SALINE 1,000 ML IV SCH (10:00)
--- NOTE | 2019-02-06 14:32 | PN ---
Teaching Attending Note Name of Resident: Keisha Jurado ATTENDING PHYSICIAN STATEMENT I saw and evaluated the patient. I reviewed the resident's note and discussed the case with the resident. I agree with the resident's findings and plan as documented. SUBJECTIVE: No events over night OBJECTIVE: NAD, minimally verbal. MMM CV; RRR,no MRG Lungs: CTAB Abd: soft, minimal TTP in suprapubic area , ND , NL BS Ext :thin legs , no edema . Assessment/Plan: Unfortunate 78 y/o lady with h/o Parkinson's disease, and depression who presented with chocking episodes and fever and she was found to have sepsis . 1- Sepsis :resolved. due to UTI . urine cx noted dc on ceftin x 4 more days blood cx neg x 48 hrs 2- Dysphagia: - appreciate Speech help. minced diet with thins 3- Parkinson's : cont CArbi-Levo 4- Elevated trop : likely demand ischemia. trop trended down 5- Depression: cont Vortioxetine dc home
[2019-02-06 14:46] VITALS: BP 105/49; PULSE 97; TEMP 98.4
--- NOTE | 2019-02-06 15:05 | DS ---
Physical Exam: SUBJECTIVE: Patient seen and examined. She reports continued umbilical abdominal pain. OBJECTIVE: Vital Signs Period Temp Pulse Resp BP Sys/Mcginnis Pulse Ox Last 24 Hr 98 F-99.1 F 89-97 16-18 97-128/40-63 97-97 PHYSICAL EXAM GENERAL: The patient is awake, and alert, in no acute distress. HEAD: Normal with no signs of trauma. EYES: PERRL, extraocular movements intact, conjunctiva clear. ENT: Ears normal, nares patent, moist mucous membranes. NECK: Trachea midline, full range of motion, supple. LUNGS: Clear to auscultation bilaterally, no wheezes HEART: Regular rate and rhythm, no murmur ABDOMEN: Soft, nondistended, normoactive bowel sounds, mild tenderness to palpation at umbilicus EXTREMITIES: Warm, well-perfused, no edema. Bilateral fingers and toes contracted. NEUROLOGICAL: Minimally verbal. PSYCH: Normal mood, normal affect. SKIN: Warm, dry, normal turgor, no rashes. LABS Laboratory Results - last 24 hr 02/06/19 02/06/19 06:00 06:00 WBC 4.1 RBC 2.87 L Hgb 9.2 L Hct 26.3 L MCV 91.6 MCH 32.2 MCHC 35.1 RDW 15.1 Plt Count 126 L MPV 8.5 Absolute Neuts (auto) 3.2 Neutrophils % 77.7 Lymphocytes % 12.7 D Monocytes % 6.0 Eosinophils % 3.4 Basophils % 0.2 Nucleated RBC % 0 Sodium 143 Potassium 3.6 Chloride 117 H Carbon Dioxide 21 Anion Gap 5 L BUN 19.8 H Creatinine 0.5 L Est GFR (CKD-EPI)AfAm 107.44 Est GFR (CKD-EPI)NonAf 92.70 Random Glucose 157 H Calcium 7.5 L Phosphorus 1.9 L Magnesium 2.1 Total Bilirubin 0.6 AST 26 ALT 11 L Alkaline Phosphatase 66 Total Protein 4.9 L Albumin 2.3 L HOSPITAL COURSE: Ms. Quiroga is a 78y/o female with Parkinson's, depression, and arthritis who presented with fevers and persistent dysphagia. UA was nitrite and leuk esterase positive. Pt was admitted for sepsis 2/2 UTI and treated with 3 days ceftriaxone for proteus urine cx results. She was discharged with ceftin to complete 1 week abx. Blood cultures were negative. Electrolytes were repleted as needed. She was found to be anemic Hb 9-11. She was instructed to follow up out pt for repeat CBC and BMP. According to family, pt also had progressive dysphagia over the last several months and was being worked up out pt prior to presentation. She was recommended a chopped diet with thin liquids. Date of Admission:02/03/19 Date of Discharge: 02/06/19 Minutes to complete discharge: 35 Discharge Summary Problems reviewed: Yes Reason For Visit: URINARY TRACT INFECTION ELEVATED TROPONIN I LEVEL Current Active Problems UTI (urinary tract infection) (Acute) Condition: Improved - Instructions Diet, Activity, Other Instructions: Hospital Visit: You were admitted to the hospital because you were having fevers and difficulty swallowing. You were found to have a urinary tract infection. You were treated with IV antibiotics and are doing better. You are stable to be discharged and continue antibiotics by mouth at home. Your swallowing was evaluated by a speech pathologist, and it was recommended that you eat a diet of chopped/minced food and drink thin liquids. You can also drink supplemental shakes like Ensure. You can crush your medications in applesauce to help take them if needed. aspiration precautions Medications: You are being given the antibiotic, Ceftin twice a day to take for 4 days.(02/07 -02/10) Continue your regular medications as prescribed. Follow Up: Dr. Gill, primary care, in the next 2 weeks to have blood work again. - CBC and metabolic panel Other Instructions: 1. Call Dr. Gill or return to the emergency room if you begin having fever above 101 again or having difficulty urinating, . 2. Take your antibiotics to completion to prevent the infection from returning. please go to th ER if you have any chest pains, shortness of breath, nausea/ vomiting , trouble swallowing Referrals: Lucas Turner MD [Primary Care Provider] - Disposition: VNS/HOME HEALTH CARE - Home Medications Comprehensive Discharge Medication List: Ambulatory Orders Carbidopa/Levodopa [Carbidopa-Levodopa 25-250 Tab] 1 tab PO TID 10/06/16 Risperidone 1 mg PO HS 10/23/16 Vortioxetine Hydrobromide [Trintellix] 20 mg PO DAILY 10/31/17 Cefuroxime Axetil [Ceftin -] 500 mg PO Q12H #8 tablet 11/19/19 This patient is new to me today: No Emergency Visit: Yes ED Registration Date: 02/03/19 Care time: The patient presented to the Emergency Department on the above date and was hospitalized for further evaluation of their emergent condition. Critical Care patient: No - Discharge Referral Referred to [facility] Med P.C.: No ATTENDING PHYSICIAN STATEMENT I saw and evaluated the patient. I reviewed the resident's note and discussed the case with the resident. I agree with the resident's findings and plan as documented. SUBJECTIVE: OBJECTIVE: ASSESSMENT AND PLAN:
== END 2019-02-06 17:00 | disposition home health service (06) | DRG 872 ==
LOC: JER 17:37 → JERBED 20:06 → J4S 23:54
PROVIDERS: ADMIT Internal Medicine; ATTEND Internal Medicine
DX: A41.9 Sepsis, unspecified organism (principal); I24.8 Other forms of acute ischemic heart disease; N39.0 Urinary tract infection, site not specified; G20 Parkinson's disease; F32.9 Major depressive disorder, single episode, unspecified; D69.6 Thrombocytopenia, unspecified; R13.10 Dysphagia, unspecified; D64.9 Anemia, unspecified; E87.6 Hypokalemia; E83.39 Other disorders of phosphorus metabolism
CPT/HCPCS: 36415; 70450-TC; 71045-TC-FY; 80048; 80053; 81003; 82803; 83605; 83735; 84100; 84484; 85025; 85027; 85610; 85730; 87040; 87086; 87186; 93005; 93010; 99285-25; J0131; J1644; J2794; J7030

== ENCOUNTER 2020-12-10 15:51 | Inpatient (IN) | payer MEDICARE, OTHER ==
[2020-12-10 17:18] LABS: BASO % 0.1 % (0-2.0); EOS % 0.1 % (0-4.5); HEMATOCRIT 26.1 % (32.4-45.2); HEMOGLOBIN 8.9 GM/dL (10.7-15.3); LYMPH % 14.3 % (8-40); MEAN CELL VOLUME 85.3 fl (80-96); MEAN PLT VOLUME 6.7 fl (7.5-11.1); MONO % 2.8 % (3.8-10.2); NEUT % 82.7 % (42.8-82.8); PLATELET COUNT 252 10^3/uL (134-434); RBC 3.06 M/mm3 (3.60-5.2); RDW 19.2 % (11.6-15.6); WHITE BLOOD COUNT 7.1 K/mm3 (4.0-10.0)
[2020-12-10 17:24] LABS: INR 1.06 (0.83-1.09)
[2020-12-10 17:27] LABS: ACTIVATED PTT 32.3 SECONDS (25.2-36.5)
[2020-12-10 17:43] LABS: CHLORIDE 110 mmol/L (98-107); SODIUM 144 mmol/L (136-145)
[2020-12-10 17:45] LABS: CALCIUM 7.7 mg/dL (8.5-10.1)
[2020-12-10 17:46] LABS: ANION GAP 4 MMOL/L (8-16); BLOOD UREA NITROGEN 13.8 mg/dL (7-18); CO2 29 mmol/L (21-32); GLUCOSE,RANDOM 77 mg/dL (74-106)
[2020-12-10 17:48] LABS: SGOT/AST 18 U/L (15-37); SGPT/ALT 21 U/L (13-61)
[2020-12-10 17:49] LABS: CREATININE < 0.2 mg/dL (0.55-1.3); PHOSPHOROUS 2.3 mg/dL (2.5-4.9)
[2020-12-10 17:51] LABS: BILIRUBIN,TOTAL 0.5 mg/dL (0.2-1); TOT PROT 5.7 g/dl (6.4-8.2)
[2020-12-10 17:52] LABS: ALK PHOS 154 U/L (45-117)
[2020-12-10 17:54] LABS: PREALBUMIN 6.4 mg/dl (20-40)
[2020-12-10] MEDS: DEXTROSE 5%-0.45% SALINE 1,000 ML IV SCH (21:53)
[2020-12-10] MEDS: CARBIDOPA/LEVODOPA 25/250 TABLET (FP) PO SCH (23:08)
[2020-12-10] MEDS: risperiDONE 1 MG TABLET PO SCH (23:08)
[2020-12-10] MEDS: HEPARIN NA (PORCINE) 5,000 UNITS/ML 1ML VIAL SQ SCH (23:25)
[2020-12-11] MEDS: CARBIDOPA/LEVODOPA 25/250 TABLET (FP) PO SCH ×3 (05:25→22:34)
[2020-12-11 09:12] LABS: HEMATOCRIT 22.7 % (32.4-45.2); HEMOGLOBIN 7.9 GM/dL (10.7-15.3); MCHC 34.6 g/dl (32.0-36.0); MEAN CELL VOLUME 83.8 fl (80-96); MEAN PLT VOLUME 6.9 fl (7.5-11.1); PLATELET COUNT 221 10^3/uL (134-434); RBC 2.71 M/mm3 (3.60-5.2); WHITE BLOOD COUNT 4.7 K/mm3 (4.0-10.0)
[2020-12-11 09:31] LABS: CHLORIDE 108 mmol/L (98-107); SODIUM 142 mmol/L (136-145)
[2020-12-11 09:34] LABS: CALCIUM 7.5 mg/dL (8.5-10.1); GLUCOSE,RANDOM 84 mg/dL (74-106)
[2020-12-11 09:35] LABS: ALBUMIN 1.7 g/dl (3.4-5.0); BLOOD UREA NITROGEN 11.5 mg/dL (7-18); CO2 29 mmol/L (21-32)
[2020-12-11 09:38] LABS: CREATININE < 0.2 mg/dL (0.55-1.3); SGOT/AST 13 U/L (15-37); SGPT/ALT 19 U/L (13-61)
[2020-12-11 09:40] LABS: BILIRUBIN,TOTAL 0.5 mg/dL (0.2-1); TOT PROT 5.1 g/dl (6.4-8.2)
[2020-12-11 09:41] LABS: ALK PHOS 137 U/L (45-117)
[2020-12-11 09:42] LABS: ANION GAP 5 MMOL/L (8-16)
[2020-12-11] MEDS: HEPARIN NA (PORCINE) 5,000 UNITS/ML 1ML VIAL SQ SCH ×2 (10:11→22:34)
[2020-12-11] MEDS ORDERED: POTASSIUM CHLORIDE ORAL LIQUID 20 MEQ/15 ML PO ONE (10:21)
[2020-12-11] MEDS: KCL 10 MEQ IVPB 10 MEQ/100 ML INFUS.BAG IVPB SCH ×2 (10:38→11:57)
[2020-12-11] MEDS: DEXTROSE 5%-0.45% SALINE 1,000 ML IV SCH (12:35)
[2020-12-11 16:51] LABS: HEMATOCRIT 23.1 % (32.4-45.2); HEMOGLOBIN 7.8 GM/dL (10.7-15.3); MCH 28.6 pg (25.7-33.7); MCHC 33.8 g/dl (32.0-36.0); MEAN CELL VOLUME 84.6 fl (80-96); MEAN PLT VOLUME 6.6 fl (7.5-11.1); PLATELET COUNT 233 10^3/uL (134-434); RBC 2.73 M/mm3 (3.60-5.2); WHITE BLOOD COUNT 6.2 K/mm3 (4.0-10.0)
[2020-12-11 17:38] LABS: CALCIUM 7.4 mg/dL (8.5-10.1)
[2020-12-11 17:39] LABS: BLOOD UREA NITROGEN 11.2 mg/dL (7-18); MAGNESIUM 1.9 mg/dL (1.8-2.4)
[2020-12-11] MEDS: POTASSIUM CHLORIDE 20 MEQ in AMINO ACIDS 4.25%/D5W 1,000 ML IV SCH (17:39)
[2020-12-11 17:41] LABS: CREATININE 0.3 mg/dL (0.55-1.3)
[2020-12-11] MEDS ORDERED: PT OWN MED DRAWER 7, Y5N ONE (21:52)
[2020-12-11] MEDS: risperiDONE 1 MG TABLET PO SCH (22:56)
[2020-12-12] MEDS: CARBIDOPA/LEVODOPA 25/250 TABLET (FP) PO SCH ×3 (05:21→21:51)
[2020-12-12 08:40] LABS: MCH 29.1 pg (25.7-33.7); MCHC 34.3 g/dl (32.0-36.0); MEAN PLT VOLUME 6.6 fl (7.5-11.1); PLATELET COUNT 187 10^3/uL (134-434); RBC 2.35 M/mm3 (3.60-5.2); RDW 18.8 % (11.6-15.6); WHITE BLOOD COUNT 4.2 K/mm3 (4.0-10.0)
[2020-12-12 08:48] LABS: HEMOGLOBIN 6.8 GM/dL (10.7-15.3)
[2020-12-12 08:58] LABS: CHLORIDE 110 mmol/L (98-107); SODIUM 141 mmol/L (136-145)
[2020-12-12 09:12] LABS: CALCIUM 7.3 mg/dL (8.5-10.1)
[2020-12-12 09:13] LABS: ALBUMIN 1.5 g/dl (3.4-5.0); ANION GAP 4 MMOL/L (8-16); BLOOD UREA NITROGEN 15.6 mg/dL (7-18); CO2 27 mmol/L (21-32); GLUCOSE,RANDOM 100 mg/dL (74-106); MAGNESIUM 1.8 mg/dL (1.8-2.4)
[2020-12-12 09:14] LABS: ALK PHOS 118 U/L (45-117)
[2020-12-12 09:15] LABS: CREATININE < 0.2 mg/dL (0.55-1.3); PHOSPHOROUS 1.6 mg/dL (2.5-4.9); SGPT/ALT < 6 U/L (13-61)
[2020-12-12 09:16] LABS: BILIRUBIN,TOTAL 0.4 mg/dL (0.2-1); SGOT/AST 16 U/L (15-37); TOT PROT 4.6 g/dl (6.4-8.2)
[2020-12-12] MEDS ORDERED: PT OWN MED DRAWER 7, Y5N ONE ×2 (10:29→21:48)
[2020-12-12] MEDS: HEPARIN NA (PORCINE) 5,000 UNITS/ML 1ML VIAL SQ SCH ×2 (10:31→21:51)
[2020-12-12] MEDS: COLLAGENASE CLOSTRIDIUM HIST. 30 GRAMS TUBE TP SCH ×2 (12:40→15:15)
[2020-12-12] MEDS: POTASSIUM CHLORIDE 20 MEQ in AMINO ACIDS 4.25%/D5W 1,000 ML IV SCH ×2 (13:26→15:23)
[2020-12-12] MEDS: NAPH,MB-DB/K PH,MBDB POWDER PACKET PO SCH ×2 (13:26→21:51)
[2020-12-12] MEDS: PANTOPRAZOLE SODIUM 40 MG VIAL IVPUSH SCH (13:26)
[2020-12-12 13:28] VITALS: BMI 12.5
[2020-12-12 13:50] LABS: EOS % 0.1 % (0-4.5); HEMATOCRIT 24.5 % (32.4-45.2); HEMOGLOBIN 8.2 GM/dL (10.7-15.3); LYMPH % 14.5 % (8-40); MCH 28.4 pg (25.7-33.7); MCHC 33.5 g/dl (32.0-36.0); MEAN CELL VOLUME 84.6 fl (80-96); MEAN PLT VOLUME 6.5 fl (7.5-11.1); MONO % 2.5 % (3.8-10.2); NEUT % 82.9 % (42.8-82.8); PLATELET COUNT 231 10^3/uL (134-434); RBC 2.89 M/mm3 (3.60-5.2); RDW 19.2 % (11.6-15.6); WHITE BLOOD COUNT 6.9 K/mm3 (4.0-10.0)
[2020-12-12] MEDS ORDERED: POTASSIUM PHOSPHATE 30 MM in SODIUM CHLORIDE 500 ML IVPB ONE (15:00)
[2020-12-12] MEDS: AMINO ACIDS/PROTEIN HYDROLYS 30 ML LIQUID.PKT PO SCH (18:00)
[2020-12-12] MEDS: risperiDONE 1 MG TABLET PO SCH (21:51)
[2020-12-13] MEDS: CARBIDOPA/LEVODOPA 25/250 TABLET (FP) PO SCH ×4 (06:34→22:18)
[2020-12-13] MEDS: POTASSIUM CHLORIDE 20 MEQ in AMINO ACIDS 4.25%/D5W 1,000 ML IV SCH ×3 (08:45→18:27)
[2020-12-13] MEDS: AMINO ACIDS/PROTEIN HYDROLYS 30 ML LIQUID.PKT PO SCH ×2 (08:46→18:26)
[2020-12-13 09:37] LABS: EOS % 0.2 % (0-4.5); HEMATOCRIT 20.6 % (32.4-45.2); HEMOGLOBIN 7.1 GM/dL (10.7-15.3); LYMPH % 17.6 % (8-40); MCHC 34.2 g/dl (32.0-36.0); MEAN CELL VOLUME 84.7 fl (80-96); MEAN PLT VOLUME 6.8 fl (7.5-11.1); MONO % 3.2 % (3.8-10.2); PLATELET COUNT 202 10^3/uL (134-434); RBC 2.44 M/mm3 (3.60-5.2); RDW 18.9 % (11.6-15.6); WHITE BLOOD COUNT 5.1 K/mm3 (4.0-10.0)
[2020-12-13 09:51] LABS: CHLORIDE 111 mmol/L (98-107); SODIUM 143 mmol/L (136-145)
[2020-12-13 10:20] LABS: ALBUMIN 1.5 g/dl (3.4-5.0); ANION GAP 6 MMOL/L (8-16); CO2 26 mmol/L (21-32)
[2020-12-13 10:21] LABS: GLUCOSE,RANDOM 99 mg/dL (74-106)
[2020-12-13 10:22] LABS: BLOOD UREA NITROGEN 13.6 mg/dL (7-18); MAGNESIUM 1.8 mg/dL (1.8-2.4)
[2020-12-13 10:24] LABS: CREATININE 0.3 mg/dL (0.55-1.3); SGOT/AST 15 U/L (15-37); SGPT/ALT 7 U/L (13-61)
[2020-12-13 10:25] LABS: BILIRUBIN,TOTAL 0.3 mg/dL (0.2-1); TOT PROT 4.6 g/dl (6.4-8.2)
[2020-12-13 10:26] LABS: ALK PHOS 107 U/L (45-117); CALCIUM 6.8 mg/dL (8.5-10.1)
[2020-12-13] MEDS: COLLAGENASE CLOSTRIDIUM HIST. 30 GRAMS TUBE TP SCH ×2 (11:54→11:55)
[2020-12-13] MEDS: PANTOPRAZOLE SODIUM 40 MG VIAL IVPUSH SCH (11:54)
[2020-12-13] MEDS: NAPH,MB-DB/K PH,MBDB POWDER PACKET PO SCH ×2 (11:54→21:59)
[2020-12-13] MEDS: HEPARIN NA (PORCINE) 5,000 UNITS/ML 1ML VIAL SQ SCH ×2 (11:54→21:59)
[2020-12-13] MEDS ORDERED: IRON SUCROSE INJECTION 300 MG in SODIUM CHLORIDE 235 ML IVPB ONE (12:30)
[2020-12-13] MEDS: risperiDONE 1 MG TABLET PO SCH (22:18)
[2020-12-14] MEDS: CARBIDOPA/LEVODOPA 25/250 TABLET (FP) PO SCH ×3 (05:40→22:41)
[2020-12-14] MEDS: POTASSIUM CHLORIDE 20 MEQ in AMINO ACIDS 4.25%/D5W 1,000 ML IV SCH ×2 (06:59→09:00)
[2020-12-14 08:54] LABS: BASO % 0.1 % (0-2.0); EOS % 0.4 % (0-4.5); HEMATOCRIT 21.4 % (32.4-45.2); HEMOGLOBIN 7.3 GM/dL (10.7-15.3); LYMPH % 17.7 % (8-40); MCHC 34.1 g/dl (32.0-36.0); MEAN CELL VOLUME 85.3 fl (80-96); MEAN PLT VOLUME 6.7 fl (7.5-11.1); MONO % 3.4 % (3.8-10.2); NEUT % 78.4 % (42.8-82.8); PLATELET COUNT 215 10^3/uL (134-434); RBC 2.51 M/mm3 (3.60-5.2); RDW 19.2 % (11.6-15.6); WHITE BLOOD COUNT 6.2 K/mm3 (4.0-10.0)
[2020-12-14 09:14] LABS: CHLORIDE 111 mmol/L (98-107); SODIUM 141 mmol/L (136-145)
[2020-12-14 09:17] LABS: ALBUMIN 1.4 g/dl (3.4-5.0); ANION GAP 2 MMOL/L (8-16); CALCIUM 7.2 mg/dL (8.5-10.1); CO2 29 mmol/L (21-32)
[2020-12-14 09:18] LABS: BLOOD UREA NITROGEN 16.7 mg/dL (7-18); GLUCOSE,RANDOM 98 mg/dL (74-106); MAGNESIUM 1.9 mg/dL (1.8-2.4)
[2020-12-14 09:21] LABS: CREATININE < 0.2 mg/dL (0.55-1.3); SGOT/AST 14 U/L (15-37); SGPT/ALT 12 U/L (13-61)
[2020-12-14 09:22] LABS: BILIRUBIN,TOTAL 0.7 mg/dL (0.2-1); TOT PROT 4.6 g/dl (6.4-8.2)
[2020-12-14 09:23] LABS: ALK PHOS 101 U/L (45-117)
[2020-12-14] MEDS: AMINO ACIDS/PROTEIN HYDROLYS 30 ML LIQUID.PKT PO SCH ×2 (09:39→18:32)
[2020-12-14] MEDS: NAPH,MB-DB/K PH,MBDB POWDER PACKET PO SCH ×2 (09:39→22:40)
[2020-12-14] MEDS: COLLAGENASE CLOSTRIDIUM HIST. 30 GRAMS TUBE TP SCH ×2 (11:00)
[2020-12-14] MEDS: PANTOPRAZOLE SODIUM 40 MG VIAL IVPUSH SCH (11:00)
[2020-12-14] MEDS: HEPARIN NA (PORCINE) 5,000 UNITS/ML 1ML VIAL SQ SCH (11:00)
[2020-12-14] MEDS ORDERED: FUROSEMIDE 40 MG/4 ML INJECTABLE VIAL IVPUSH ONE (21:25)
[2020-12-14] MEDS: risperiDONE 1 MG TABLET PO SCH (22:41)
[2020-12-15] MEDS: HEPARIN NA (PORCINE) 5,000 UNITS/ML 1ML VIAL SQ SCH ×3 (00:15→21:37)
[2020-12-15 01:38] LABS: HEMOGLOBIN 10.8 GM/dL (10.7-15.3); MCH 29.1 pg (25.7-33.7); MCHC 34.7 g/dl (32.0-36.0); MEAN CELL VOLUME 83.9 fl (80-96); MEAN PLT VOLUME 6.9 fl (7.5-11.1); PLATELET COUNT 262 10^3/uL (134-434); RDW 17.8 % (11.6-15.6); WHITE BLOOD COUNT 9.6 K/mm3 (4.0-10.0)
[2020-12-15] MEDS: POTASSIUM CHLORIDE 20 MEQ in AMINO ACIDS 4.25%/D5W 1,000 ML IV SCH ×3 (03:04→16:26)
[2020-12-15] MEDS: CARBIDOPA/LEVODOPA 25/250 TABLET (FP) PO SCH ×3 (06:07→21:37)
[2020-12-15] MEDS: AMINO ACIDS/PROTEIN HYDROLYS 30 ML LIQUID.PKT PO SCH ×2 (08:46→17:42)
[2020-12-15 10:26] LABS: BASO % 0.1 % (0-2.0); EOS % 0.2 % (0-4.5); HEMATOCRIT 29.7 % (32.4-45.2); HEMOGLOBIN 10.4 GM/dL (10.7-15.3); LYMPH % 10.9 % (8-40); MCH 29.4 pg (25.7-33.7); MEAN PLT VOLUME 7.1 fl (7.5-11.1); MONO % 3.4 % (3.8-10.2); NEUT % 85.4 % (42.8-82.8); PLATELET COUNT 252 10^3/uL (134-434); RBC 3.53 M/mm3 (3.60-5.2); RDW 17.8 % (11.6-15.6); WHITE BLOOD COUNT 9.6 K/mm3 (4.0-10.0)
[2020-12-15] MEDS: PANTOPRAZOLE SODIUM 40 MG VIAL IVPUSH SCH (10:30)
[2020-12-15] MEDS: NAPH,MB-DB/K PH,MBDB POWDER PACKET PO SCH ×2 (10:30→21:37)
[2020-12-15 11:24] LABS: CALCIUM 7.6 mg/dL (8.5-10.1)
[2020-12-15 11:25] LABS: BLOOD UREA NITROGEN 17.2 mg/dL (7-18); MAGNESIUM 1.8 mg/dL (1.8-2.4)
[2020-12-15 11:28] LABS: CREATININE 0.2 mg/dL (0.55-1.3)
[2020-12-15 11:29] LABS: BILIRUBIN,TOTAL 1.5 mg/dL (0.2-1)
[2020-12-15 11:33] LABS: TOT PROT 5.5 g/dl (6.4-8.2)
[2020-12-15 11:38] LABS: ALBUMIN 1.7 g/dl (3.4-5.0)
[2020-12-15] MEDS ORDERED: GLUCAGON 1 MG KIT IVPUSH ONE (12:00)
[2020-12-15] MEDS ORDERED: SODIUM CHLORIDE 250 ML IV ONE (12:00)
[2020-12-15] MEDS: KCL 10 MEQ IVPB 10 MEQ/100 ML INFUS.BAG IVPB SCH ×3 (15:06→17:45)
[2020-12-15] MEDS: COLLAGENASE CLOSTRIDIUM HIST. 30 GRAMS TUBE TP SCH ×2 (16:27)
[2020-12-15] MEDS ORDERED: KETOROLAC TROMETHAMINE 30 MG/1 ML VIAL IVPUSH ONE (17:00)
[2020-12-15] MEDS: ACETAMINOPHEN 650 MG/20.3 ML ORAL SOLUTION (CUPS) NGT PRN (21:37)
[2020-12-15] MEDS: risperiDONE 1 MG TABLET PO SCH (21:37)
[2020-12-16] MEDS ORDERED: KETOROLAC TROMETHAMINE 30 MG/1 ML VIAL IVPUSH PRN (01:00)
[2020-12-16] MEDS: POTASSIUM CHLORIDE 20 MEQ in AMINO ACIDS 4.25%/D5W 1,000 ML IV SCH (02:00)
[2020-12-16] MEDS: ACETAMINOPHEN 650 MG/20.3 ML ORAL SOLUTION (CUPS) NGT PRN (05:42)
[2020-12-16] MEDS: CARBIDOPA/LEVODOPA 25/250 TABLET (FP) PO SCH ×3 (05:42→22:08)
[2020-12-16] MEDS: AMINO ACIDS/PROTEIN HYDROLYS 30 ML LIQUID.PKT PO SCH ×2 (08:40→18:21)
[2020-12-16 09:59] LABS: EOS % 0.1 % (0-4.5); HEMATOCRIT 26.8 % (32.4-45.2); HEMOGLOBIN 9.2 GM/dL (10.7-15.3); LYMPH % 9.9 % (8-40); MCH 29.2 pg (25.7-33.7); MCHC 34.3 g/dl (32.0-36.0); MEAN CELL VOLUME 85.3 fl (80-96); MEAN PLT VOLUME 6.7 fl (7.5-11.1); MONO % 2.1 % (3.8-10.2); NEUT % 87.9 % (42.8-82.8); PLATELET COUNT 225 10^3/uL (134-434); RBC 3.15 M/mm3 (3.60-5.2); RDW 18.3 % (11.6-15.6); WHITE BLOOD COUNT 7.2 K/mm3 (4.0-10.0)
[2020-12-16 10:20] LABS: CHLORIDE 109 mmol/L (98-107); SODIUM 140 mmol/L (136-145)
[2020-12-16 10:23] LABS: ALBUMIN 1.6 g/dl (3.4-5.0); CALCIUM 7.7 mg/dL (8.5-10.1)
[2020-12-16] MEDS: PANTOPRAZOLE SODIUM 40 MG VIAL IVPUSH SCH (10:23)
[2020-12-16] MEDS: HEPARIN NA (PORCINE) 5,000 UNITS/ML 1ML VIAL SQ SCH ×2 (10:23→22:07)
[2020-12-16] MEDS: NAPH,MB-DB/K PH,MBDB POWDER PACKET PO SCH (10:23)
[2020-12-16 10:24] LABS: ANION GAP 5 MMOL/L (8-16); BLOOD UREA NITROGEN 26.5 mg/dL (7-18); CO2 25 mmol/L (21-32); GLUCOSE,RANDOM 97 mg/dL (74-106)
[2020-12-16] MEDS: COLLAGENASE CLOSTRIDIUM HIST. 30 GRAMS TUBE TP SCH ×2 (10:24→10:25)
[2020-12-16 10:27] LABS: CREATININE 0.2 mg/dL (0.55-1.3); SGOT/AST 14 U/L (15-37); SGPT/ALT < 6 U/L (13-61)
[2020-12-16 10:28] LABS: BILIRUBIN,TOTAL 0.9 mg/dL (0.2-1)
[2020-12-16 10:30] LABS: ALK PHOS 107 U/L (45-117)
[2020-12-16] MEDS ORDERED: FAT EMULSION/OLIVE/SOY (CLINOLIPID) 250 ML EMULSION IV SCH (22:00)
[2020-12-16] MEDS ORDERED: FAT EMULSION/OLIVE/SOY/PHOSPHO 250 ML IV SCH (22:00)
[2020-12-16] MEDS: THIAMINE HCL 100 MG TABLET (FP) PO SCH (22:08)
[2020-12-16] MEDS: risperiDONE 1 MG TABLET PO SCH (22:08)
[2020-12-17] MEDS: ACETAMINOPHEN 650 MG/20.3 ML ORAL SOLUTION (CUPS) NGT PRN ×2 (02:36→14:50)
[2020-12-17] MEDS: CARBIDOPA/LEVODOPA 25/250 TABLET (FP) PO SCH ×3 (07:07→21:46)
[2020-12-17 10:21] LABS: CHLORIDE 110 mmol/L (98-107); SODIUM 141 mmol/L (136-145)
[2020-12-17 10:24] LABS: CALCIUM 7.2 mg/dL (8.5-10.1)
[2020-12-17 10:25] LABS: ALBUMIN 1.5 g/dl (3.4-5.0); ANION GAP 4 MMOL/L (8-16); BLOOD UREA NITROGEN 26.8 mg/dL (7-18); CO2 27 mmol/L (21-32); GLUCOSE,RANDOM 109 mg/dL (74-106); MAGNESIUM 1.6 mg/dL (1.8-2.4)
[2020-12-17 10:28] LABS: CREATININE 0.2 mg/dL (0.55-1.3); PHOSPHOROUS 2.4 mg/dL (2.5-4.9); SGOT/AST 17 U/L (15-37); SGPT/ALT < 6 U/L (13-61)
[2020-12-17 10:29] LABS: BILIRUBIN,TOTAL 0.6 mg/dL (0.2-1); TOT PROT 4.9 g/dl (6.4-8.2)
[2020-12-17 10:31] LABS: ALK PHOS 116 U/L (45-117)
[2020-12-17] MEDS: AMINO ACIDS/PROTEIN HYDROLYS 30 ML LIQUID.PKT PO SCH ×2 (10:55→19:02)
[2020-12-17] MEDS: HEPARIN NA (PORCINE) 5,000 UNITS/ML 1ML VIAL SQ SCH ×2 (10:57→21:44)
[2020-12-17] MEDS: COLLAGENASE CLOSTRIDIUM HIST. 30 GRAMS TUBE TP SCH ×2 (10:57)
[2020-12-17] MEDS: THIAMINE HCL 100 MG TABLET (FP) PO SCH ×2 (10:57→21:44)
[2020-12-17] MEDS: PANTOPRAZOLE SODIUM 40 MG VIAL IVPUSH SCH (10:57)
[2020-12-17] MEDS ORDERED: POTASSIUM CHLORIDE ORAL LIQUID 20 MEQ/15 ML PO ONE (11:28)
[2020-12-17] MEDS ORDERED: MAGNESIUM SULF 50% (8.12 MEQ/2 ML-1 GM VIAL) IVPB ONE (11:28)
[2020-12-17 14:10] LABS: CHOLESTEROL 92 mg/dL (50-200)
[2020-12-17 14:12] LABS: TRIGLYCERIDES 74 mg/dL (0-150)
[2020-12-17 14:13] LABS: LDL CHOLESTEROL (ONLY SJRH) 45 mg/dL (5-100)
[2020-12-17 14:15] LABS: HDL CHOLESTEROL 40 mg/dL (40-60)
[2020-12-17] MEDS ORDERED: PT OWN MED DRAWER 7, Y5N ONE (21:34)
[2020-12-17] MEDS: risperiDONE 1 MG TABLET PO SCH (21:44)
[2020-12-18] MEDS: CARBIDOPA/LEVODOPA 25/250 TABLET (FP) PO SCH ×3 (05:49→21:39)
[2020-12-18 08:16] LABS: EOS % 0.3 % (0-4.5); HEMATOCRIT 23.1 % (32.4-45.2); HEMOGLOBIN 7.9 GM/dL (10.7-15.3); LYMPH % 7.8 % (8-40); MCH 29.2 pg (25.7-33.7); MCHC 34.4 g/dl (32.0-36.0); MEAN PLT VOLUME 7.2 fl (7.5-11.1); MONO % 2.4 % (3.8-10.2); NEUT % 89.5 % (42.8-82.8); PLATELET COUNT 205 10^3/uL (134-434); RBC 2.71 M/mm3 (3.60-5.2); RDW 18.4 % (11.6-15.6); WHITE BLOOD COUNT 6.9 K/mm3 (4.0-10.0)
[2020-12-18 08:51] LABS: BLOOD UREA NITROGEN 25.6 mg/dL (7-18); CALCIUM 7.2 mg/dL (8.5-10.1)
[2020-12-18 08:55] LABS: CREATININE 0.2 mg/dL (0.55-1.3)
[2020-12-18] MEDS: AMINO ACIDS/PROTEIN HYDROLYS 30 ML LIQUID.PKT PO SCH (11:06)
[2020-12-18] MEDS: HEPARIN NA (PORCINE) 5,000 UNITS/ML 1ML VIAL SQ SCH ×2 (11:06→21:38)
[2020-12-18] MEDS: COLLAGENASE CLOSTRIDIUM HIST. 30 GRAMS TUBE TP SCH ×2 (11:07)
[2020-12-18] MEDS: PANTOPRAZOLE 40 MG TABLET PO SCH (11:07)
[2020-12-18] MEDS: THIAMINE HCL 100 MG TABLET (FP) PO SCH ×2 (11:07→21:39)
[2020-12-18] MEDS: ACETAMINOPHEN 650 MG/20.3 ML ORAL SOLUTION (CUPS) NGT PRN (20:48)
[2020-12-18] MEDS ORDERED: PT OWN MED DRAWER 7, Y5N ONE (21:21)
[2020-12-18] MEDS: risperiDONE 1 MG TABLET PO SCH (21:39)
[2020-12-19] MEDS: CARBIDOPA/LEVODOPA 25/250 TABLET (FP) PO SCH ×3 (06:30→21:50)
[2020-12-19] MEDS ORDERED: AMINO ACIDS/PROTEIN HYDROLYS 30 ML LIQUID.PKT PO SCH (08:00)
[2020-12-19 08:48] LABS: BASO % 0.1 % (0-2.0); EOS % 0.4 % (0-4.5); HEMATOCRIT 25.1 % (32.4-45.2); HEMOGLOBIN 8.7 GM/dL (10.7-15.3); LYMPH % 12.7 % (8-40); MCH 29.6 pg (25.7-33.7); MCHC 34.4 g/dl (32.0-36.0); MEAN CELL VOLUME 85.9 fl (80-96); MEAN PLT VOLUME 7.2 fl (7.5-11.1); MONO % 2.5 % (3.8-10.2); NEUT % 84.3 % (42.8-82.8); PLATELET COUNT 192 10^3/uL (134-434); RBC 2.93 M/mm3 (3.60-5.2); RDW 18.4 % (11.6-15.6); WHITE BLOOD COUNT 7.6 K/mm3 (4.0-10.0)
[2020-12-19 09:12] LABS: BLOOD UREA NITROGEN 23.5 mg/dL (7-18)
[2020-12-19 09:15] LABS: CREATININE 0.2 mg/dL (0.55-1.3)
[2020-12-19] MEDS: PANTOPRAZOLE 40 MG TABLET PO SCH (10:41)
[2020-12-19] MEDS: AMINO ACIDS/PROTEIN HYDROLYS 30 ML LIQUID.PKT PO SCH (10:41)
[2020-12-19] MEDS: THIAMINE HCL 100 MG TABLET (FP) PO SCH ×2 (10:41→21:50)
[2020-12-19] MEDS: HEPARIN NA (PORCINE) 5,000 UNITS/ML 1ML VIAL SQ SCH ×2 (10:41→21:49)
[2020-12-19] MEDS: COLLAGENASE CLOSTRIDIUM HIST. 30 GRAMS TUBE TP SCH ×2 (14:09→14:10)
[2020-12-19] MEDS: ACETAMINOPHEN 650 MG/20.3 ML ORAL SOLUTION (CUPS) NGT PRN ×2 (14:10→22:50)
[2020-12-19] MEDS: risperiDONE 1 MG TABLET PO SCH (21:49)
[2020-12-20] MEDS: CARBIDOPA/LEVODOPA 25/250 TABLET (FP) PO SCH ×3 (06:19→21:28)
[2020-12-20] MEDS: AMINO ACIDS/PROTEIN HYDROLYS 30 ML LIQUID.PKT PO SCH (07:50)
[2020-12-20] MEDS: THIAMINE HCL 100 MG TABLET (FP) PO SCH ×2 (09:48→21:28)
[2020-12-20] MEDS: PANTOPRAZOLE 40 MG TABLET PO SCH (09:48)
[2020-12-20] MEDS: HEPARIN NA (PORCINE) 5,000 UNITS/ML 1ML VIAL SQ SCH ×2 (09:48→21:28)
[2020-12-20] MEDS: COLLAGENASE CLOSTRIDIUM HIST. 30 GRAMS TUBE TP SCH ×2 (09:48→09:49)
[2020-12-20] MEDS ORDERED: PT OWN MED DRAWER 7, Y5N ONE (21:20)
[2020-12-20] MEDS: ACETAMINOPHEN 650 MG/20.3 ML ORAL SOLUTION (CUPS) NGT PRN (21:28)
[2020-12-20] MEDS: risperiDONE 1 MG TABLET PO SCH (21:28)
[2020-12-21] MEDS: CARBIDOPA/LEVODOPA 25/250 TABLET (FP) PO SCH ×3 (05:41→21:36)
[2020-12-21] MEDS: AMINO ACIDS/PROTEIN HYDROLYS 30 ML LIQUID.PKT PO SCH (08:02)
[2020-12-21] MEDS: HEPARIN NA (PORCINE) 5,000 UNITS/ML 1ML VIAL SQ SCH ×2 (09:04→21:36)
[2020-12-21] MEDS: PANTOPRAZOLE 40 MG TABLET PO SCH (09:04)
[2020-12-21] MEDS: ACETAMINOPHEN 650 MG/20.3 ML ORAL SOLUTION (CUPS) NGT PRN ×2 (09:04→21:37)
[2020-12-21] MEDS: COLLAGENASE CLOSTRIDIUM HIST. 30 GRAMS TUBE TP SCH ×2 (09:05→09:06)
[2020-12-21] MEDS: THIAMINE HCL 100 MG TABLET (FP) PO SCH ×2 (09:06→21:36)
[2020-12-21 12:13] LABS: HEMATOCRIT 22.1 % (32.4-45.2); HEMOGLOBIN 7.5 GM/dL (10.7-15.3); MCH 28.9 pg (25.7-33.7); MCHC 34.1 g/dl (32.0-36.0); MEAN CELL VOLUME 84.7 fl (80-96); MEAN PLT VOLUME 7.2 fl (7.5-11.1); PLATELET COUNT 221 10^3/uL (134-434); RBC 2.61 M/mm3 (3.60-5.2); RDW 18.7 % (11.6-15.6); WHITE BLOOD COUNT 5.9 K/mm3 (4.0-10.0)
[2020-12-21] MEDS ORDERED: PT OWN MED DRAWER 7, Y5N ONE (21:32)
[2020-12-21] MEDS: risperiDONE 1 MG TABLET PO SCH (21:36)
[2020-12-22] MEDS: CARBIDOPA/LEVODOPA 25/250 TABLET (FP) PO SCH ×2 (05:27→15:19)
[2020-12-22] MEDS: ACETAMINOPHEN 650 MG/20.3 ML ORAL SOLUTION (CUPS) NGT PRN ×2 (05:27→15:19)
[2020-12-22] MEDS: PANTOPRAZOLE 40 MG TABLET PO SCH (11:22)
[2020-12-22] MEDS: AMINO ACIDS/PROTEIN HYDROLYS 30 ML LIQUID.PKT PO SCH (11:37)
[2020-12-22] MEDS: THIAMINE HCL 100 MG TABLET (FP) PO SCH (11:37)
[2020-12-22] MEDS: HEPARIN NA (PORCINE) 5,000 UNITS/ML 1ML VIAL SQ SCH (11:38)
[2020-12-22 13:39] VITALS: BP 112/42; PULSE 99; TEMP 98
[2020-12-22] MEDS: COLLAGENASE CLOSTRIDIUM HIST. 30 GRAMS TUBE TP SCH ×2 (15:19)
== END 2020-12-22 19:06 | DRG 884 ==
LOC: JER 15:51 → JERBED 16:29 → J5S 21:23
PROVIDERS: ADMIT Family Medicine; ATTEND Family Medicine
PROC: 30233N1 Transfusion of Nonautologous Red Blood Cells into Peripheral Vein, Percutaneous Approach (ICD-10-PCS; principal; 2020-12-14)
PROC: 0DH63UZ Insertion of Feeding Device into Stomach, Percutaneous Approach (ICD-10-PCS; 2020-12-15)
PROC: BD12YZZ Fluoroscopy of Stomach using Other Contrast (ICD-10-PCS; 2020-12-15)
DX: F03.90 Unspecified dementia, unspecified severity, without behavioral disturbance, psychotic disturbance, mood disturbance, and anxiety (principal); L89.314 Pressure ulcer of right buttock, stage 4; E43 Unspecified severe protein-calorie malnutrition; R64 Cachexia; Z68.1 Body mass index [BMI] 19.9 or less, adult; G20 Parkinson's disease; G35 Multiple sclerosis; I69.391 Dysphagia following cerebral infarction; F32.9 Major depressive disorder, single episode, unspecified; R62.7 Adult failure to thrive; D64.9 Anemia, unspecified; K21.9 Gastro-esophageal reflux disease without esophagitis; E87.6 Hypokalemia; J44.9 Chronic obstructive pulmonary disease, unspecified
CPT/HCPCS: 36415; 36430; 49440; 71045-TC-FY; 74018-TC-FY; 80048; 80053; 80061; 82272; 82962; 83540; 83550; 83735; 84100; 84134; 84443; 85025; 85027; 85610; 85730; 86850; 86900; 86901; 86922; 93005; 93010; 97161-GP; 99285-25; C9803; J1644; J1756; J2794; P9058; U0003; U0005

== ENCOUNTER 2021-01-25 11:13 | Inpatient (IN) | payer MEDICARE, OTHER ==
[2021-01-25 13:34] LABS: BASO % 0.2 % (0-2.0); EOS % 0.2 % (0-4.5); HEMATOCRIT 22.2 % (32.4-45.2); HEMOGLOBIN 7.3 GM/dL (10.7-15.3); LYMPH % 10.2 % (8-40); MCH 27.4 pg (25.7-33.7); MCHC 32.8 g/dl (32.0-36.0); MEAN CELL VOLUME 83.5 fl (80-96); MEAN PLT VOLUME 8.1 fl (7.5-11.1); MONO % 2.9 % (3.8-10.2); NEUT % 86.5 % (42.8-82.8); PLATELET COUNT 318 10^3/uL (134-434); RBC 2.66 M/mm3 (3.60-5.2); RDW 17.8 % (11.6-15.6); WHITE BLOOD COUNT 7.8 K/mm3 (4.0-10.0)
[2021-01-25 13:44] LABS: INR 1.27 (0.83-1.09); PROTHROMBIN TIME (PATIENT) 14.9 SEC (9.7-13.0)
[2021-01-25 13:47] LABS: ACTIVATED PTT 31.2 SECONDS (25.2-36.5)
[2021-01-25 14:41] LABS: CHLORIDE 111 mmol/L (98-107); SODIUM 144 mmol/L (136-145)
[2021-01-25 14:43] LABS: ANION GAP 4 MMOL/L (8-16); BLOOD UREA NITROGEN 22.5 mg/dL (7-18); CALCIUM 7.2 mg/dL (8.5-10.1); CO2 30 mmol/L (21-32); GLUCOSE,RANDOM 83 mg/dL (74-106)
[2021-01-25 14:44] LABS: ALBUMIN 1.1 g/dl (3.4-5.0)
[2021-01-25 14:47] LABS: SGOT/AST 36 U/L (15-37); SGPT/ALT 48 U/L (13-61)
[2021-01-25 14:48] LABS: BILIRUBIN,TOTAL 0.3 mg/dL (0.2-1); TOT PROT 5.2 g/dl (6.4-8.2)
[2021-01-25 14:49] LABS: ALK PHOS 264 U/L (45-117)
[2021-01-25 15:18] LABS: CREATININE < 0.2 mg/dL (0.55-1.3)
[2021-01-25] MEDS: AMINO ACIDS 4.25%/D5W 1,000 ML IV SCH (20:47)
[2021-01-26] MEDS: AMINO ACIDS 4.25%/D5W 1,000 ML IV SCH (13:48)
[2021-01-27] MEDS: AMINO ACIDS 4.25%/D5W 1,000 ML IV SCH ×2 (02:27→13:15)
[2021-01-27 10:29] LABS: BASO % 0.7 % (0-2.0); EOS % 0.1 % (0-4.5); HEMATOCRIT 21.1 % (32.4-45.2); LYMPH % 9.5 % (8-40); MCH 26.7 pg (25.7-33.7); MCHC 31.2 g/dl (32.0-36.0); MEAN CELL VOLUME 85.6 fl (80-96); MEAN PLT VOLUME 7.4 fl (7.5-11.1); MONO % 2.7 % (3.8-10.2); PLATELET COUNT 337 10^3/uL (134-434); RBC 2.47 M/mm3 (3.60-5.2); RDW 18.9 % (11.6-15.6); WHITE BLOOD COUNT 6.7 K/mm3 (4.0-10.0)
[2021-01-27 10:31] LABS: HEMOGLOBIN 6.6 GM/dL (10.7-15.3)
[2021-01-27 10:55] LABS: CHLORIDE 111 mmol/L (98-107); SODIUM 145 mmol/L (136-145)
[2021-01-27 10:56] LABS: CALCIUM 7.2 mg/dL (8.5-10.1)
[2021-01-27 10:57] LABS: BLOOD UREA NITROGEN 23.9 mg/dL (7-18); GLUCOSE,RANDOM 97 mg/dL (74-106)
[2021-01-27 10:58] LABS: ANION GAP 5 MMOL/L (8-16); CO2 28 mmol/L (21-32)
[2021-01-27 11:00] LABS: CREATININE < 0.2 mg/dL (0.55-1.3)
[2021-01-27 14:48] VITALS: BMI 14.6
[2021-01-28] MEDS: AMINO ACIDS 4.25%/D5W 1,000 ML IV SCH ×2 (06:50→14:34)
[2021-01-28 09:08] LABS: BASO % 0.1 % (0-2.0); EOS % 0.2 % (0-4.5); HEMATOCRIT 29.8 % (32.4-45.2); HEMOGLOBIN 9.7 GM/dL (10.7-15.3); LYMPH % 9.8 % (8-40); MCHC 32.4 g/dl (32.0-36.0); MEAN CELL VOLUME 83.5 fl (80-96); MEAN PLT VOLUME 7.6 fl (7.5-11.1); MONO % 2.9 % (3.8-10.2); PLATELET COUNT 318 10^3/uL (134-434); RBC 3.57 M/mm3 (3.60-5.2); RDW 17.2 % (11.6-15.6); WHITE BLOOD COUNT 6.7 K/mm3 (4.0-10.0)
[2021-01-28 09:29] LABS: CHLORIDE 114 mmol/L (98-107); SODIUM 146 mmol/L (136-145)
[2021-01-28 10:19] LABS: ANION GAP 6 MMOL/L (8-16); CO2 26 mmol/L (21-32); GLUCOSE,RANDOM 83 mg/dL (74-106)
[2021-01-28 10:23] LABS: CREATININE < 0.2 mg/dL (0.55-1.3)
[2021-01-28] MEDS ORDERED: PIPERACILLIN/TAZOBACTAM 3.375 GM VIAL IVPB ONE ×2 (11:30→18:24)
[2021-01-28] MEDS ORDERED: DEXTROSE 5%-WATER - 50 ML IVPB ONE ×2 (11:30→18:24)
[2021-01-28] MEDS: PIPERACILLIN/TAZOB 3.375 GM 3.375 GM in DEXTROSE 5%-WATER - 50 ML IVPB SCH ×2 (11:32→18:25)
[2021-01-28] MEDS: KCL 10 MEQ IVPB 10 MEQ/100 ML INFUS.BAG IVPB SCH ×2 (12:26→14:23)
[2021-01-28] MEDS: ACETAMINOPHEN 1000 MG/100 ML VIAL IVPB PRN (18:02)
[2021-01-29] MEDS ORDERED: PIPERACILLIN/TAZOBACTAM 3.375 GM VIAL IVPB ONE ×3 (01:11→17:13)
[2021-01-29] MEDS ORDERED: DEXTROSE 5%-WATER - 50 ML IVPB ONE ×3 (01:11→17:13)
[2021-01-29] MEDS: PIPERACILLIN/TAZOB 3.375 GM 3.375 GM in DEXTROSE 5%-WATER - 50 ML IVPB SCH ×3 (02:23→17:16)
[2021-01-29] MEDS: ACETAMINOPHEN 1000 MG/100 ML VIAL IVPB PRN (06:42)
[2021-01-29 09:11] LABS: BASO % 0.1 % (0-2.0); EOS % 0.2 % (0-4.5); HEMATOCRIT 33.5 % (32.4-45.2); HEMOGLOBIN 10.7 GM/dL (10.7-15.3); LYMPH % 7.8 % (8-40); MCH 27.1 pg (25.7-33.7); MCHC 31.9 g/dl (32.0-36.0); MEAN PLT VOLUME 7.6 fl (7.5-11.1); MONO % 2.4 % (3.8-10.2); NEUT % 89.5 % (42.8-82.8); PLATELET COUNT 330 10^3/uL (134-434); RBC 3.94 M/mm3 (3.60-5.2); RDW 17.7 % (11.6-15.6); WHITE BLOOD COUNT 7.8 K/mm3 (4.0-10.0)
[2021-01-29 09:38] LABS: CHLORIDE 115 mmol/L (98-107); SODIUM 145 mmol/L (136-145)
[2021-01-29 09:41] LABS: CALCIUM 7.4 mg/dL (8.5-10.1)
[2021-01-29 09:42] LABS: BLOOD UREA NITROGEN 23.9 mg/dL (7-18)
[2021-01-29 09:43] LABS: ANION GAP 5 MMOL/L (8-16); CO2 25 mmol/L (21-32)
[2021-01-29 09:44] LABS: GLUCOSE,RANDOM 115 mg/dL (74-106)
[2021-01-29 10:14] LABS: CREATININE < 0.2 mg/dL (0.55-1.3)
[2021-01-29] MEDS: KCL 10 MEQ IVPB 10 MEQ/100 ML INFUS.BAG IVPB SCH ×4 (11:01→19:07)
[2021-01-29] MEDS: AMINO ACIDS 4.25%/D5W 1,000 ML IV SCH (13:43)
[2021-01-29] MEDS ORDERED: POTASSIUM CHLORIDE 20 MEQ in AMINO ACIDS 4.25%/D5W 1,000 ML IV SCH (17:15)
[2021-01-30] MEDS ORDERED: PIPERACILLIN/TAZOBACTAM 3.375 GM VIAL IVPB ONE ×2 (00:46→10:53)
[2021-01-30] MEDS ORDERED: DEXTROSE 5%-WATER - 50 ML IVPB ONE ×2 (00:46→10:53)
[2021-01-30] MEDS: PIPERACILLIN/TAZOB 3.375 GM 3.375 GM in DEXTROSE 5%-WATER - 50 ML IVPB SCH ×3 (01:04→22:23)
[2021-01-30 09:20] LABS: BASO % 0.2 % (0-2.0); EOS % 0.2 % (0-4.5); HEMOGLOBIN 10.3 GM/dL (10.7-15.3); LYMPH % 8.4 % (8-40); MCH 26.9 pg (25.7-33.7); MCHC 33.3 g/dl (32.0-36.0); MEAN CELL VOLUME 80.7 fl (80-96); MEAN PLT VOLUME 6.9 fl (7.5-11.1); MONO % 2.4 % (3.8-10.2); NEUT % 88.8 % (42.8-82.8); PLATELET COUNT 322 10^3/uL (134-434); RBC 3.84 M/mm3 (3.60-5.2); RDW 17.3 % (11.6-15.6); WHITE BLOOD COUNT 7.2 K/mm3 (4.0-10.0)
[2021-01-30 09:52] LABS: CHLORIDE 113 mmol/L (98-107); SODIUM 144 mmol/L (136-145)
[2021-01-30 10:05] LABS: CALCIUM 7.5 mg/dL (8.5-10.1)
[2021-01-30 10:06] LABS: ALBUMIN 1.1 g/dl (3.4-5.0); ANION GAP 4 MMOL/L (8-16); BLOOD UREA NITROGEN 20.4 mg/dL (7-18); CO2 28 mmol/L (21-32); GLUCOSE,RANDOM 101 mg/dL (74-106); MAGNESIUM 2.2 mg/dL (1.8-2.4)
[2021-01-30 10:08] LABS: SGPT/ALT 22 U/L (13-61)
[2021-01-30 10:09] LABS: SGOT/AST 14 U/L (15-37)
[2021-01-30 10:10] LABS: BILIRUBIN,TOTAL 0.6 mg/dL (0.2-1); TOT PROT 4.9 g/dl (6.4-8.2)
[2021-01-30 11:08] LABS: ALK PHOS 163 U/L (45-117); CREATININE < 0.2 mg/dL (0.55-1.3)
[2021-01-30] MEDS ORDERED: POTASSIUM CHLORIDE 20 MEQ in AMINO ACIDS 4.25%/D5W 1,000 ML IV SCH (14:25)
[2021-01-30] MEDS ORDERED: POTASSIUM PHOSPHATE 15 MM in DEXTROSE 5%-WATER - 250 ML IVPB ONE (15:00)
[2021-01-31] MEDS: PIPERACILLIN/TAZOB 3.375 GM 3.375 GM in DEXTROSE 5%-WATER - 50 ML IVPB SCH ×3 (02:14→17:05)
[2021-01-31] MEDS ORDERED: DEXTROSE 5%-WATER - 50 ML IVPB ONE ×3 (03:27→16:39)
[2021-01-31] MEDS ORDERED: PIPERACILLIN/TAZOBACTAM 3.375 GM VIAL IVPB ONE ×3 (03:27→16:39)
[2021-01-31 10:01] LABS: HEMATOCRIT 33.8 % (32.4-45.2); HEMOGLOBIN 10.8 GM/dL (10.7-15.3); MCH 26.9 pg (25.7-33.7); MCHC 32.1 g/dl (32.0-36.0); MEAN CELL VOLUME 83.9 fl (80-96); MEAN PLT VOLUME 7.4 fl (7.5-11.1); PLATELET COUNT 354 10^3/uL (134-434); RBC 4.03 M/mm3 (3.60-5.2); RDW 17.3 % (11.6-15.6); WHITE BLOOD COUNT 7.5 K/mm3 (4.0-10.0)
[2021-01-31 10:16] LABS: CHLORIDE 110 mmol/L (98-107); SODIUM 141 mmol/L (136-145)
[2021-01-31 10:23] LABS: ALBUMIN 1.2 g/dl (3.4-5.0); ANION GAP 5 MMOL/L (8-16); BLOOD UREA NITROGEN 19.1 mg/dL (7-18); CALCIUM 7.2 mg/dL (8.5-10.1); CO2 26 mmol/L (21-32); GLUCOSE,RANDOM 141 mg/dL (74-106); MAGNESIUM 2.2 mg/dL (1.8-2.4)
[2021-01-31 10:26] LABS: SGPT/ALT 21 U/L (13-61)
[2021-01-31 10:27] LABS: CREATININE < 0.2 mg/dL (0.55-1.3); SGOT/AST 13 U/L (15-37)
[2021-01-31 10:28] LABS: BILIRUBIN,TOTAL 0.5 mg/dL (0.2-1); TOT PROT 5.1 g/dl (6.4-8.2)
[2021-01-31 10:29] LABS: ALK PHOS 188 U/L (45-117)
[2021-01-31 11:29] LABS: ANISOCYTOSIS 1+; MACROCYTOSIS 0; OVALOCYTE 1+; PLATELET ESTIMATE NORMAL
[2021-01-31] MEDS ORDERED: PT OWN MED DRAWER 7, Y5N ONE (13:07)
[2021-01-31] MEDS: ASCORBIC ACID 500 MG TABLET (FP) PO SCH (21:22)
[2021-01-31] MEDS ORDERED: ASCORBIC ACID 500 MG TABLET (FP) PO SCH (22:00)
[2021-02-01] MEDS ORDERED: PIPERACILLIN/TAZOBACTAM 3.375 GM VIAL IVPB ONE ×3 (01:27→17:02)
[2021-02-01] MEDS ORDERED: DEXTROSE 5%-WATER - 50 ML IVPB ONE ×3 (01:27→17:02)
[2021-02-01] MEDS: PIPERACILLIN/TAZOB 3.375 GM 3.375 GM in DEXTROSE 5%-WATER - 50 ML IVPB SCH ×3 (01:37→17:39)
[2021-02-01] MEDS ORDERED: AMINO ACIDS/PROTEIN HYDROLYS 30 ML LIQUID.PKT PO SCH (08:00)
[2021-02-01] MEDS ORDERED: ZINC SULFATE 220 MG CAPSULE (FP) PO SCH (10:00)
[2021-02-01] MEDS ORDERED: MULTIVITAMINS (DAILY MVI) TABLET (FP) PO SCH (10:00)
[2021-02-01] MEDS ORDERED: VITAMIN A 10,000 UNITS (3000 MCG) CAPSULE PO SCH (10:00)
[2021-02-01] MEDS: MULTIVITAMINS (DAILY MVI) TABLET (FP) PO SCH (10:46)
[2021-02-01] MEDS: ZINC SULFATE 220 MG CAPSULE (FP) PO SCH (10:46)
[2021-02-01] MEDS: ASCORBIC ACID 500 MG TABLET (FP) PO SCH ×2 (10:46→21:27)
[2021-02-01] MEDS: AMINO ACIDS/PROTEIN HYDROLYS 30 ML LIQUID.PKT PO SCH (10:47)
[2021-02-01] MEDS ORDERED: PT OWN MED DRAWER 7, Y5N ONE (13:29)
[2021-02-01] MEDS: VITAMIN A 10,000 UNITS (3000 MCG) CAPSULE PO SCH (13:31)
[2021-02-02] MEDS ORDERED: PIPERACILLIN/TAZOBACTAM 3.375 GM VIAL IVPB ONE ×3 (01:35→17:27)
[2021-02-02] MEDS ORDERED: DEXTROSE 5%-WATER - 50 ML IVPB ONE ×3 (01:35→17:27)
[2021-02-02] MEDS: PIPERACILLIN/TAZOB 3.375 GM 3.375 GM in DEXTROSE 5%-WATER - 50 ML IVPB SCH ×3 (01:45→18:42)
[2021-02-02 09:10] LABS: CHLORIDE 107 mmol/L (98-107); SODIUM 140 mmol/L (136-145)
[2021-02-02 09:13] LABS: ANION GAP 4 MMOL/L (8-16); BLOOD UREA NITROGEN 16.9 mg/dL (7-18); CO2 29 mmol/L (21-32); GLUCOSE,RANDOM 123 mg/dL (74-106)
[2021-02-02 09:16] LABS: PHOSPHOROUS 1.9 mg/dL (2.5-4.9); SGOT/AST 12 U/L (15-37); SGPT/ALT 16 U/L (13-61)
[2021-02-02 09:17] LABS: BILIRUBIN,TOTAL 0.4 mg/dL (0.2-1); TOT PROT 4.6 g/dl (6.4-8.2)
[2021-02-02 09:19] LABS: ALK PHOS 158 U/L (45-117)
[2021-02-02 09:21] LABS: CREATININE < 0.2 mg/dL (0.55-1.3)
[2021-02-02] MEDS ORDERED: PT OWN MED DRAWER 7, Y5N ONE ×2 (10:58→16:39)
[2021-02-02] MEDS: MULTIVITAMINS (DAILY MVI) TABLET (FP) PO SCH (11:02)
[2021-02-02] MEDS: AMINO ACIDS/PROTEIN HYDROLYS 30 ML LIQUID.PKT PO SCH (11:02)
[2021-02-02] MEDS: VITAMIN A 10,000 UNITS (3000 MCG) CAPSULE PO SCH (11:02)
[2021-02-02] MEDS: ASCORBIC ACID 500 MG TABLET (FP) PO SCH ×2 (11:02→21:26)
[2021-02-02] MEDS: ZINC SULFATE 220 MG CAPSULE (FP) PO SCH (11:03)
[2021-02-02] MEDS ORDERED: POTASSIUM PHOSPHATE 30 MM in DEXTROSE 5%-WATER - 500 ML IVPB ONE (15:00)
[2021-02-03] MEDS ORDERED: PIPERACILLIN/TAZOBACTAM 3.375 GM VIAL IVPB ONE ×2 (01:19→09:59)
[2021-02-03] MEDS: PIPERACILLIN/TAZOB 3.375 GM 3.375 GM in DEXTROSE 5%-WATER - 50 ML IVPB SCH ×2 (02:38→10:08)
[2021-02-03] MEDS: AMINO ACIDS/PROTEIN HYDROLYS 30 ML LIQUID.PKT PO SCH (08:29)
[2021-02-03] MEDS ORDERED: DEXTROSE 5%-WATER - 50 ML IVPB ONE (09:59)
[2021-02-03] MEDS ORDERED: PT OWN MED DRAWER 7, Y5N ONE (09:59)
[2021-02-03] MEDS: ASCORBIC ACID 500 MG/5 ML UNIT DOSE CUP GT SCH (10:09)
[2021-02-03] MEDS: MULTIVIT-MINERALS ORAL LIQUID GT SCH (10:09)
[2021-02-03] MEDS: VITAMIN A 10,000 UNITS (3000 MCG) CAPSULE NR SCH (10:09)
[2021-02-03] MEDS: AMINO ACIDS/PROTEIN HYDROLYS 30 ML LIQUID.PKT GT SCH (10:09)
[2021-02-03] MEDS: ZINC SULFATE 220 MG CAPSULE (FP) GT SCH (10:09)
[2021-02-04 09:23] LABS: CHLORIDE 107 mmol/L (98-107); SODIUM 140 mmol/L (136-145)
[2021-02-04 09:33] LABS: ANION GAP 3 MMOL/L (8-16); BLOOD UREA NITROGEN 15.5 mg/dL (7-18); CO2 30 mmol/L (21-32); GLUCOSE,RANDOM 105 mg/dL (74-106)
[2021-02-04 09:37] LABS: PHOSPHOROUS 2.1 mg/dL (2.5-4.9)
[2021-02-04 10:02] LABS: CREATININE < 0.2 mg/dL (0.55-1.3)
[2021-02-04] MEDS ORDERED: PT OWN MED DRAWER 7, Y5N ONE ×2 (10:39→15:04)
[2021-02-04] MEDS: AMINO ACIDS/PROTEIN HYDROLYS 30 ML LIQUID.PKT GT SCH (10:42)
[2021-02-04] MEDS: ZINC SULFATE 220 MG CAPSULE (FP) GT SCH (10:42)
[2021-02-04] MEDS: ASCORBIC ACID 500 MG/5 ML UNIT DOSE CUP GT SCH (10:43)
[2021-02-04] MEDS: MULTIVIT-MINERALS ORAL LIQUID GT SCH (10:43)
[2021-02-04] MEDS: VITAMIN A 10,000 UNITS (3000 MCG) CAPSULE NR SCH (10:44)
[2021-02-04] MEDS: ACETAMINOPHEN 650 MG/20.3 ML ORAL SOLUTION (CUPS) PEG PRN (10:48)
[2021-02-04] MEDS ORDERED: NAPH,MB-DB/K PH,MBDB POWDER PACKET PEG ONE (12:50)
[2021-02-05] MEDS: ACETAMINOPHEN 650 MG/20.3 ML ORAL SOLUTION (CUPS) PEG PRN (02:10)
[2021-02-05] MEDS ORDERED: SODIUM HYPOCHLORITE 0.5% 473 ML- BULK BOTTLE TP SCH ×2 (10:00→15:56)
[2021-02-05] MEDS ORDERED: PT OWN MED DRAWER 7, Y5N ONE (10:08)
[2021-02-05] MEDS: ZINC SULFATE 220 MG CAPSULE (FP) GT SCH (10:13)
[2021-02-05] MEDS: MULTIVIT-MINERALS ORAL LIQUID GT SCH (10:14)
[2021-02-05] MEDS: VITAMIN A 10,000 UNITS (3000 MCG) CAPSULE NR SCH (10:14)
[2021-02-05] MEDS: ASCORBIC ACID 500 MG/5 ML UNIT DOSE CUP GT SCH (10:14)
[2021-02-05] MEDS: AMINO ACIDS/PROTEIN HYDROLYS 30 ML LIQUID.PKT GT SCH (10:15)
[2021-02-05] MEDS ORDERED: LIDOCAINE 1%/EPI 1:100000 (20 ML MULTI DOSE VIAL) ONE (12:46)
[2021-02-05] MEDS ORDERED: BUPIVACAINE HCL/PF 0.5% (5MG/ML) 10 ML VIAL ONE (12:46)
[2021-02-06 09:10] LABS: BASO % 0.1 % (0-2.0); EOS % 0.5 % (0-4.5); HEMATOCRIT 27.2 % (32.4-45.2); MCH 27.2 pg (25.7-33.7); MCHC 33.2 g/dl (32.0-36.0); MEAN CELL VOLUME 82.1 fl (80-96); MEAN PLT VOLUME 6.9 fl (7.5-11.1); MONO % 5.1 % (3.8-10.2); NEUT % 80.3 % (42.8-82.8); PLATELET COUNT 247 10^3/uL (134-434); RBC 3.31 M/mm3 (3.60-5.2); RDW 17.7 % (11.6-15.6); WHITE BLOOD COUNT 4.6 K/mm3 (4.0-10.0)
[2021-02-06 09:23] LABS: CHLORIDE 107 mmol/L (98-107); SODIUM 139 mmol/L (136-145)
[2021-02-06 09:34] LABS: ANION GAP 4 MMOL/L (8-16); BLOOD UREA NITROGEN 18.2 mg/dL (7-18); CO2 28 mmol/L (21-32); GLUCOSE,RANDOM 135 mg/dL (74-106)
[2021-02-06 09:37] LABS: PHOSPHOROUS 2.5 mg/dL (2.5-4.9); SGOT/AST 19 U/L (15-37); SGPT/ALT 21 U/L (13-61)
[2021-02-06 09:38] LABS: BILIRUBIN,TOTAL 0.3 mg/dL (0.2-1); TOT PROT 4.8 g/dl (6.4-8.2)
[2021-02-06 09:40] LABS: ALK PHOS 155 U/L (45-117)
[2021-02-06 11:07] LABS: CREATININE < 0.5 mg/dL (0.55-1.3)
[2021-02-06] MEDS ORDERED: PT OWN MED DRAWER 7, Y5N ONE (11:19)
[2021-02-06] MEDS: AMINO ACIDS/PROTEIN HYDROLYS 30 ML LIQUID.PKT GT SCH (11:20)
[2021-02-06] MEDS: VITAMIN A 10,000 UNITS (3000 MCG) CAPSULE NR SCH (11:20)
[2021-02-06] MEDS: ZINC SULFATE 220 MG CAPSULE (FP) GT SCH (11:20)
[2021-02-06] MEDS: MULTIVIT-MINERALS ORAL LIQUID GT SCH (11:21)
[2021-02-06] MEDS: ASCORBIC ACID 500 MG/5 ML UNIT DOSE CUP GT SCH (11:24)
[2021-02-06 22:03] VITALS: BP 137/49; PULSE 86; TEMP 97.1
== END 2021-02-06 22:30 | disposition hospice, inpatient (51) | DRG 393 ==
LOC: JER 11:13 → JERBED 12:59 → J8W 23:00
PROVIDERS: ADMIT Family Medicine; ATTEND Family Medicine
PROC: 0DH63UZ Insertion of Feeding Device into Stomach, Percutaneous Approach (ICD-10-PCS; principal; 2021-01-26)
PROC: BD12YZZ Fluoroscopy of Stomach using Other Contrast (ICD-10-PCS; 2021-01-26)
PROC: 3E0G76Z Introduction of Nutritional Substance into Upper GI, Via Natural or Artificial Opening (ICD-10-PCS; 2021-01-26)
DX: K94.23 Gastrostomy malfunction (principal); L89.324 Pressure ulcer of left buttock, stage 4; L89.154 Pressure ulcer of sacral region, stage 4; E43 Unspecified severe protein-calorie malnutrition; J69.0 Pneumonitis due to inhalation of food and vomit; R64 Cachexia; Z68.1 Body mass index [BMI] 19.9 or less, adult; Y83.8 Other surgical procedures as the cause of abnormal reaction of the patient, or of later complication, without mention of misadventure at the time of the procedure; F03.90 Unspecified dementia, unspecified severity, without behavioral disturbance, psychotic disturbance, mood disturbance, and anxiety; E11.9 Type 2 diabetes mellitus without complications; J44.9 Chronic obstructive pulmonary disease, unspecified; F32.A Depression, unspecified; R62.7 Adult failure to thrive; G20 Parkinson's disease; F02.80 Dementia in other diseases classified elsewhere, unspecified severity, without behavioral disturbance, psychotic disturbance, mood disturbance, and anxiety; E88.09 Other disorders of plasma-protein metabolism, not elsewhere classified; R13.10 Dysphagia, unspecified; D64.9 Anemia, unspecified; E87.6 Hypokalemia; L89.890 Pressure ulcer of other site, unstageable
CPT/HCPCS: 36415; 36430; 49440; 71045-TC-FY; 74018-TC-FY; 80048; 80053; 82272; 83735; 84100; 85025; 85610; 85730; 86850; 86900; 86901; 86922; 93005; 93010; 99285-25; C1769; C1887; C9803; E0194; J0131; P9058; U0003; U0005